=== PATIENT | female | born 1955 | race Caucasian/White ===

== ENCOUNTER 2017-09-06 00:20 | Day surgery (SDC) | payer OTHER ==
[~2017-09-06 00:20] MED LIST: AMLO5 PO; AMPDEX10 PO; ASPI325 PO; ASPI81EC PO; BUME2 PO; BUPR100 PO; BUPR150ER PO; BUPR75 PO; CALCIT950 PO; CHOL10002 PO; CITRACAL PO; CITRACAL-VIT D1 EAC1 PO; CYAN1000 PO; CYCL10 PO; DIVA250EC PO; DOXY100; Dicyclomine HCl10 MG PO; ESCI20 PO; ESOM20 PO; EZET10-40 PO; FERR325 PO; GLIM4 PO; IRON PO; Isosorbide Mono30 MG PO; LEVSOD137 PO; LEVSOD175 PO; LEVSOD50 PO; LISI5 PO; LOPE2C PO; Lisinopril2.5 MG PO; Lomotil Tablet1 EACH PO; MAGOXI400; MAGOXI400 PO; METF500 PO; MINO100 PO; MULVITMIND PO; MULVITMINE PO; Macrobid 100 M100 MG PO; NORT75 PO; Nortriptyline H10 MG PO; ONDA4ODT MM; ONDA8 PO; OXYACE5T PO; PRAM.5 PO; Percocet 5-3251 EACH PO; RANI150 PO; ROPI1 PO; SERT100 PO; SILSUL1TC TOP; SPIR25 PO; SULTRIDS PO; Synthroid175 MCG PO; TAMS.4ER PO; TRAM50 PO; TYLENOL PM PO; VITAMIN B COMPLEX PO; VITAMIN D3 PO; [UNRECOGNIZED DRUG - OTHER] PO
[2018-03-30] MEDS ORDERED: AMLO5 (13:35)
[2018-08-02] MEDS ORDERED: Nitrostat0.4 MG SL (12:31)
[2018-08-02] MEDS ORDERED: CHOL10002 (12:31)
[2018-08-02] MEDS ORDERED: AMLO5 PO (12:32)
[2018-08-02] MEDS ORDERED: HYDR1TAB94 PO (12:35)
[2018-08-02] MEDS ORDERED: PROM25 PO (12:37)
== END 2017-09-06 14:13 | disposition home or self-care (01) ==
LOC: ATC 00:20
DX: Z45.2 Encounter for adjustment and management of vascular access device (principal); R19.7 Diarrhea, unspecified
CPT/HCPCS: 96523

== ENCOUNTER 2017-09-12 00:32 | Day surgery (SDC) | payer OTHER ==
[2018-03-30] MEDS ORDERED: AMLO5 (13:35)
[2018-08-02] MEDS ORDERED: CHOL10002 (12:31)
[2018-08-02] MEDS ORDERED: Nitrostat0.4 MG SL (12:31)
[2018-08-02] MEDS ORDERED: AMLO5 PO (12:32)
[2018-08-02] MEDS ORDERED: HYDR1TAB94 PO (12:35)
[2018-08-02] MEDS ORDERED: PROM25 PO (12:37)
== END 2017-09-12 14:50 | disposition home or self-care (01) ==
LOC: ATC 00:32
DX: Z45.2 Encounter for adjustment and management of vascular access device (principal); R19.7 Diarrhea, unspecified; R51 Headache; E03.9 Hypothyroidism, unspecified; F32.9 Major depressive disorder, single episode, unspecified; E66.9 Obesity, unspecified; I10 Essential (primary) hypertension; K21.9 Gastro-esophageal reflux disease without esophagitis; G47.33 Obstructive sleep apnea (adult) (pediatric); Z98.84 Bariatric surgery status; Z87.891 Personal history of nicotine dependence
CPT/HCPCS: 96523; J1642

== ENCOUNTER 2017-09-19 00:27 | Day surgery (SDC) | payer OTHER ==
[2018-03-30] MEDS ORDERED: AMLO5 (13:35)
[2018-08-02] MEDS ORDERED: Nitrostat0.4 MG SL (12:31)
[2018-08-02] MEDS ORDERED: CHOL10002 (12:31)
[2018-08-02] MEDS ORDERED: AMLO5 PO (12:32)
[2018-08-02] MEDS ORDERED: HYDR1TAB94 PO (12:35)
[2018-08-02] MEDS ORDERED: PROM25 PO (12:37)
== END 2017-09-19 14:11 | disposition home or self-care (01) ==
LOC: ATC 00:27
DX: Z45.2 Encounter for adjustment and management of vascular access device (principal); R51 Headache; K58.9 Irritable bowel syndrome, unspecified; M54.12 Radiculopathy, cervical region
CPT/HCPCS: 96523

== ENCOUNTER 2017-09-26 00:07 | Day surgery (SDC) | payer OTHER ==
[2018-03-30] MEDS ORDERED: AMLO5 (13:35)
[2018-08-02] MEDS ORDERED: CHOL10002 (12:31)
[2018-08-02] MEDS ORDERED: Nitrostat0.4 MG SL (12:31)
[2018-08-02] MEDS ORDERED: AMLO5 PO (12:32)
[2018-08-02] MEDS ORDERED: HYDR1TAB94 PO (12:35)
[2018-08-02] MEDS ORDERED: PROM25 PO (12:37)
== END 2017-09-26 14:16 | disposition home or self-care (01) ==
LOC: ATC 00:07
DX: Z45.2 Encounter for adjustment and management of vascular access device (principal); R51 Headache; M54.12 Radiculopathy, cervical region; K58.9 Irritable bowel syndrome, unspecified
CPT/HCPCS: 96523

== ENCOUNTER 2017-10-03 00:15 | Day surgery (SDC) | payer OTHER ==
[2018-03-30] MEDS ORDERED: AMLO5 (13:35)
[2018-08-02] MEDS ORDERED: Nitrostat0.4 MG SL (12:31)
[2018-08-02] MEDS ORDERED: CHOL10002 (12:31)
[2018-08-02] MEDS ORDERED: AMLO5 PO (12:32)
[2018-08-02] MEDS ORDERED: HYDR1TAB94 PO (12:35)
[2018-08-02] MEDS ORDERED: PROM25 PO (12:37)
== END 2017-10-03 13:51 | disposition home or self-care (01) ==
LOC: ATC 00:15
DX: Z45.2 Encounter for adjustment and management of vascular access device (principal); R51 Headache; K58.9 Irritable bowel syndrome, unspecified; M54.12 Radiculopathy, cervical region
CPT/HCPCS: 96523

== ENCOUNTER 2017-10-10 00:26 | Day surgery (SDC) | payer OTHER ==
[2018-03-30] MEDS ORDERED: AMLO5 (13:35)
[2018-08-02] MEDS ORDERED: CHOL10002 (12:31)
[2018-08-02] MEDS ORDERED: Nitrostat0.4 MG SL (12:31)
[2018-08-02] MEDS ORDERED: AMLO5 PO (12:32)
[2018-08-02] MEDS ORDERED: HYDR1TAB94 PO (12:35)
[2018-08-02] MEDS ORDERED: PROM25 PO (12:37)
== END 2017-10-10 14:10 | disposition home or self-care (01) ==
LOC: ATC 00:26
DX: Z45.2 Encounter for adjustment and management of vascular access device (principal); R51 Headache; M54.12 Radiculopathy, cervical region; K58.9 Irritable bowel syndrome, unspecified
CPT/HCPCS: 96523; J1642

== ENCOUNTER 2017-10-17 00:25 | Day surgery (SDC) | payer OTHER ==
[2018-03-30] MEDS ORDERED: AMLO5 (13:35)
[2018-08-02] MEDS ORDERED: CHOL10002 (12:31)
[2018-08-02] MEDS ORDERED: Nitrostat0.4 MG SL (12:31)
[2018-08-02] MEDS ORDERED: AMLO5 PO (12:32)
[2018-08-02] MEDS ORDERED: HYDR1TAB94 PO (12:35)
[2018-08-02] MEDS ORDERED: PROM25 PO (12:37)
== END 2017-10-17 14:29 | disposition home or self-care (01) ==
LOC: ATC 00:25
DX: Z45.2 Encounter for adjustment and management of vascular access device (principal); R51 Headache; M54.12 Radiculopathy, cervical region; K58.9 Irritable bowel syndrome, unspecified
CPT/HCPCS: 96523

== ENCOUNTER 2017-10-24 00:20 | Day surgery (SDC) | payer OTHER ==
[2018-03-30] MEDS ORDERED: AMLO5 (13:35)
[2018-08-02] MEDS ORDERED: CHOL10002 (12:31)
[2018-08-02] MEDS ORDERED: Nitrostat0.4 MG SL (12:31)
[2018-08-02] MEDS ORDERED: AMLO5 PO (12:32)
[2018-08-02] MEDS ORDERED: HYDR1TAB94 PO (12:35)
[2018-08-02] MEDS ORDERED: PROM25 PO (12:37)
== END 2017-10-24 14:06 | disposition home or self-care (01) ==
LOC: ATC 00:20
DX: Z45.2 Encounter for adjustment and management of vascular access device (principal)
CPT/HCPCS: 96523

== ENCOUNTER 2017-11-16 00:49 | Day surgery (SDC) | payer OTHER ==
[2018-03-30] MEDS ORDERED: AMLO5 (13:35)
[2018-08-02] MEDS ORDERED: CHOL10002 (12:31)
[2018-08-02] MEDS ORDERED: Nitrostat0.4 MG SL (12:31)
[2018-08-02] MEDS ORDERED: AMLO5 PO (12:32)
[2018-08-02] MEDS ORDERED: HYDR1TAB94 PO (12:35)
[2018-08-02] MEDS ORDERED: PROM25 PO (12:37)
== END 2017-11-16 14:35 | disposition home or self-care (01) ==
LOC: ATC 00:49
DX: Z45.2 Encounter for adjustment and management of vascular access device (principal); R51 Headache; M54.12 Radiculopathy, cervical region
CPT/HCPCS: 99211; J1642

== ENCOUNTER → 2017-11-20 | Outpatient (CLI) | payer OTHER ==
[~2017-11-20] MED LIST changes: +AMLO5; +CHOL10002; +HYDR1TAB94 PO; +Nitrostat0.4 MG SL; +PROM25 PO; +Prilosec Otc20 MG
== END | disposition home or self-care (01) ==
LOC: OLS 11:00
DX: R19.7 Diarrhea, unspecified (principal)
CPT/HCPCS: 87177; 87209

== ENCOUNTER 2017-11-21 00:21 | Day surgery (SDC) | payer OTHER ==
[~2017-11-21 00:21] MED LIST changes: -AMLO5; -CHOL10002; -HYDR1TAB94 PO; -Nitrostat0.4 MG SL; -PROM25 PO; -Prilosec Otc20 MG
[2018-03-30] MEDS ORDERED: AMLO5 (13:35)
[2018-08-02] MEDS ORDERED: CHOL10002 (12:31)
[2018-08-02] MEDS ORDERED: Nitrostat0.4 MG SL (12:31)
[2018-08-02] MEDS ORDERED: AMLO5 PO (12:32)
[2018-08-02] MEDS ORDERED: HYDR1TAB94 PO (12:35)
[2018-08-02] MEDS ORDERED: PROM25 PO (12:37)
== END 2017-11-21 16:15 | disposition home or self-care (01) ==
LOC: ATC 00:21
DX: Z45.2 Encounter for adjustment and management of vascular access device (principal); R51 Headache; M54.12 Radiculopathy, cervical region
CPT/HCPCS: 99211; J1642

== ENCOUNTER 2017-11-28 00:50 | Day surgery (SDC) | payer OTHER ==
[2018-03-30] MEDS ORDERED: AMLO5 (13:35)
[2018-08-02] MEDS ORDERED: Nitrostat0.4 MG SL (12:31)
[2018-08-02] MEDS ORDERED: CHOL10002 (12:31)
[2018-08-02] MEDS ORDERED: AMLO5 PO (12:32)
[2018-08-02] MEDS ORDERED: HYDR1TAB94 PO (12:35)
[2018-08-02] MEDS ORDERED: PROM25 PO (12:37)
== END 2017-11-28 14:16 | disposition home or self-care (01) ==
LOC: ATC 00:50
DX: Z45.2 Encounter for adjustment and management of vascular access device (principal)
CPT/HCPCS: 96523; J1642

== ENCOUNTER 2017-12-05 09:25 | Day surgery (SDC) | payer OTHER ==
[~2017-12-05 09:25] MED LIST changes: +LEVSOD150 PO; -Synthroid175 MCG PO
== END 2017-12-05 14:22 | disposition home or self-care (01) ==
LOC: ATC 09:25
DX: Z45.2 Encounter for adjustment and management of vascular access device (principal); R51 Headache
CPT/HCPCS: 96523

== ENCOUNTER 2018-01-09 00:53 | Day surgery (SDC) | payer OTHER | END 2018-01-09 13:48 | disposition home or self-care (01) | LOC: ATC 00:53 | DX: Z45.2 Encounter for adjustment and management of vascular access device (principal); R51 Headache; M54.12 Radiculopathy, cervical region; K58.9 Irritable bowel syndrome, unspecified | CPT/HCPCS: 96523 ==

== ENCOUNTER 2018-01-16 00:11 | Day surgery (SDC) | payer OTHER | END 2018-01-16 13:55 | disposition home or self-care (01) | LOC: ATC 00:11 | DX: Z45.2 Encounter for adjustment and management of vascular access device (principal); R51 Headache; M54.12 Radiculopathy, cervical region | CPT/HCPCS: 96523 ==

== ENCOUNTER 2018-01-23 00:36 | Day surgery (SDC) | payer OTHER | END 2018-01-23 13:43 | disposition home or self-care (01) | LOC: ATC 00:36 | DX: Z45.2 Encounter for adjustment and management of vascular access device (principal); R51 Headache | CPT/HCPCS: 96523 ==

== ENCOUNTER 2018-01-31 00:54 | Day surgery (SDC) | payer OTHER | END 2018-01-31 11:43 | disposition home or self-care (01) | LOC: ATC 00:54 | DX: Z45.2 Encounter for adjustment and management of vascular access device (principal) | CPT/HCPCS: 96523 ==

== ENCOUNTER 2018-02-06 10:56 | Day surgery (SDC) | payer OTHER | END 2018-02-06 11:10 | disposition home or self-care (01) | LOC: ATC 10:56 | DX: Z45.2 Encounter for adjustment and management of vascular access device (principal); R51 Headache | CPT/HCPCS: 96523 ==

== ENCOUNTER 2018-02-13 00:42 | Day surgery (SDC) | payer OTHER | END 2018-02-13 12:00 | disposition home or self-care (01) | LOC: ATC 00:42 | DX: Z45.2 Encounter for adjustment and management of vascular access device (principal); R51 Headache | CPT/HCPCS: 96523 ==

== ENCOUNTER 2018-03-13 00:42 | Day surgery (SDC) | payer OTHER | END 2018-03-13 11:40 | disposition home or self-care (01) | LOC: ATC 00:42 | DX: Z45.2 Encounter for adjustment and management of vascular access device (principal) | CPT/HCPCS: 96523; J1642 ==

== ENCOUNTER 2018-03-20 00:35 | Day surgery (SDC) | payer OTHER | END 2018-03-20 13:56 | disposition home or self-care (01) | LOC: ATC 00:35 | DX: Z45.2 Encounter for adjustment and management of vascular access device (principal) | CPT/HCPCS: 36593; 96523; J2997 ==

== ENCOUNTER 2018-03-25 22:25 | Emergency (ER) | payer OTHER ==
[~2018-03-25] VITALS: Ht 165.1 cm; Wt 81.7 kg
[2018-03-25] MEDS ORDERED: Prilosec Otc20 MG (23:18)
[2018-03-26] MEDS ORDERED: Percocet 5-3251 EACH PO (00:08)
== END 2018-03-26 00:19 | disposition home or self-care (01) ==
LOC: ER 22:25
DX: S52.501A Unspecified fracture of the lower end of right radius, initial encounter for closed fracture (principal); S52.611A Displaced fracture of right ulna styloid process, initial encounter for closed fracture; F41.9 Anxiety disorder, unspecified; F32.9 Major depressive disorder, single episode, unspecified; Z88.8 Allergy status to other drugs, medicaments and biological substances; Z88.0 Allergy status to penicillin; Z88.1 Allergy status to other antibiotic agents; Z88.5 Allergy status to narcotic agent; Z88.6 Allergy status to analgesic agent; Z79.899 Other long term (current) drug therapy; W19.XXXA Unspecified fall, initial encounter; Y93.41 Activity, dancing
CPT/HCPCS: 29105; 73110; 99283-25

== ENCOUNTER 2018-03-27 00:29 | Day surgery (SDC) | payer OTHER ==
[~2018-03-27 00:29] MED LIST changes: +Prilosec Otc20 MG
[2018-03-30] MEDS ORDERED: AMLO5 (13:35)
== END 2018-03-27 12:05 | disposition home or self-care (01) ==
LOC: ATC 00:29
DX: R51 Headache (principal); M54.12 Radiculopathy, cervical region; K58.9 Irritable bowel syndrome, unspecified
CPT/HCPCS: 99211

== ENCOUNTER 2018-04-10 00:28 | Day surgery (SDC) | payer OTHER ==
[~2018-04-10 00:28] MED LIST changes: +AMLO5
== END 2018-04-10 12:20 | disposition home or self-care (01) ==
LOC: ATC 00:28
DX: Z45.2 Encounter for adjustment and management of vascular access device (principal); M54.12 Radiculopathy, cervical region
CPT/HCPCS: 99211

== ENCOUNTER 2018-04-17 00:28 | Day surgery (SDC) | payer OTHER | END 2018-04-17 11:26 | disposition home or self-care (01) | LOC: ATC 00:28 | DX: R51 Headache (principal); M54.12 Radiculopathy, cervical region; K58.9 Irritable bowel syndrome, unspecified | CPT/HCPCS: 99211 ==

== ENCOUNTER 2018-04-24 00:30 | Day surgery (SDC) | payer OTHER | END 2018-04-24 11:33 | disposition home or self-care (01) | LOC: ATC 00:30 | DX: R51 Headache (principal); M54.12 Radiculopathy, cervical region; K58.9 Irritable bowel syndrome, unspecified | CPT/HCPCS: 96523 ==

== ENCOUNTER 2018-05-01 01:38 | Day surgery (SDC) | payer OTHER | END 2018-05-01 13:45 | disposition home or self-care (01) | LOC: ATC 01:38 | DX: Z45.2 Encounter for adjustment and management of vascular access device (principal) | CPT/HCPCS: 96523 ==

== ENCOUNTER 2018-05-15 00:18 | Day surgery (SDC) | payer OTHER | END 2018-05-15 10:20 | disposition home or self-care (01) | LOC: ATC 00:18 | DX: R51 Headache (principal); M54.12 Radiculopathy, cervical region; K58.9 Irritable bowel syndrome, unspecified | CPT/HCPCS: 96523 ==

== ENCOUNTER 2018-05-22 00:16 | Day surgery (SDC) | payer OTHER | END 2018-05-22 13:45 | disposition home or self-care (01) | LOC: ATC 00:16 | DX: R51 Headache (principal); M54.12 Radiculopathy, cervical region; K58.9 Irritable bowel syndrome, unspecified | CPT/HCPCS: 99211 ==

== ENCOUNTER 2018-05-29 00:48 | Day surgery (SDC) | payer OTHER | END 2018-05-29 11:07 | disposition home or self-care (01) | LOC: ATC 00:48 | DX: Z45.2 Encounter for adjustment and management of vascular access device (principal) | CPT/HCPCS: 96523 ==

== ENCOUNTER 2018-06-05 00:35 | Day surgery (SDC) | payer OTHER | END 2018-06-05 11:13 | disposition home or self-care (01) | LOC: ATC 00:35 | DX: R51 Headache (principal); M54.12 Radiculopathy, cervical region; Z98.84 Bariatric surgery status | CPT/HCPCS: 96523 ==

== ENCOUNTER 2018-07-03 08:06 | Day surgery (SDC) | payer OTHER | END 2018-07-03 11:05 | disposition home or self-care (01) | LOC: ATC 08:06 | DX: Z45.2 Encounter for adjustment and management of vascular access device (principal); R19.7 Diarrhea, unspecified | CPT/HCPCS: 96523 ==

== ENCOUNTER 2018-08-21 00:46 | Day surgery (SDC) | payer OTHER ==
[~2018-08-21 00:46] MED LIST changes: +CHOL10002; +HYDR1TAB94 PO; -LEVSOD150 PO; +Nitrostat0.4 MG SL; +PROM25 PO; +Synthroid175 MCG PO
== END 2018-08-21 11:07 | disposition home or self-care (01) ==
LOC: ATC 00:46
DX: K58.0 Irritable bowel syndrome with diarrhea (principal)
CPT/HCPCS: 96523

== ENCOUNTER 2018-08-28 00:06 | Day surgery (SDC) | payer OTHER | END 2018-08-28 15:36 | disposition home or self-care (01) | LOC: ATC 00:06 | DX: R19.7 Diarrhea, unspecified (principal) | CPT/HCPCS: 96523 ==

== ENCOUNTER 2018-09-04 00:02 | Day surgery (SDC) | payer OTHER | END 2018-09-04 11:11 | disposition home or self-care (01) | LOC: ATC 00:02 | DX: K58.0 Irritable bowel syndrome with diarrhea (principal); M19.90 Unspecified osteoarthritis, unspecified site; Z88.8 Allergy status to other drugs, medicaments and biological substances | CPT/HCPCS: 96523 ==

== ENCOUNTER 2018-09-11 00:15 | Day surgery (SDC) | payer OTHER ==
--- NOTE | 2018-09-11 14:10 | NUR ---
ALCOHOL END CAP PLACED ON LINE.
== END 2018-09-11 13:43 | disposition home or self-care (01) ==
LOC: ATC 00:15
DX: R19.7 Diarrhea, unspecified (principal); K58.0 Irritable bowel syndrome with diarrhea
CPT/HCPCS: 96523

== ENCOUNTER 2018-09-18 00:10 | Day surgery (SDC) | payer OTHER | END 2018-09-18 23:08 | disposition home or self-care (01) | LOC: ATC 00:10 | DX: R19.7 Diarrhea, unspecified (principal); E86.0 Dehydration; K58.0 Irritable bowel syndrome with diarrhea; M19.90 Unspecified osteoarthritis, unspecified site; Z88.8 Allergy status to other drugs, medicaments and biological substances | CPT/HCPCS: 96523 ==

== ENCOUNTER 2018-09-25 00:13 | Day surgery (SDC) | payer OTHER | END 2018-09-25 11:15 | disposition home or self-care (01) | LOC: ATC 00:13 | DX: R51 Headache (principal); M54.12 Radiculopathy, cervical region; K58.9 Irritable bowel syndrome, unspecified; R19.7 Diarrhea, unspecified | CPT/HCPCS: 99211 ==

== ENCOUNTER 2018-10-02 00:12 | Day surgery (SDC) | payer OTHER | END 2018-10-02 11:30 | disposition home or self-care (01) | LOC: ATC 00:12 | DX: K58.0 Irritable bowel syndrome with diarrhea (principal); Z88.8 Allergy status to other drugs, medicaments and biological substances | CPT/HCPCS: 99211 ==

== ENCOUNTER 2018-10-05 14:17 | Emergency (ER) | payer OTHER ==
[~2018-10-05] VITALS: Ht 165.1 cm; Wt 81.7 kg
[2018-10-05] MEDS ORDERED: VICODIN 5-3001 EACH PO (15:20)
[2018-10-05] MEDS ORDERED: Crutch1 EACH MISC (15:22)
== END 2018-10-05 15:30 | disposition home or self-care (01) ==
LOC: ER 14:17
DX: S83.91XA Sprain of unspecified site of right knee, initial encounter (principal); S80.11XA Contusion of right lower leg, initial encounter; F32.9 Major depressive disorder, single episode, unspecified; F41.9 Anxiety disorder, unspecified; E03.9 Hypothyroidism, unspecified; Z79.899 Other long term (current) drug therapy; Z88.8 Allergy status to other drugs, medicaments and biological substances; Z88.1 Allergy status to other antibiotic agents; Z88.5 Allergy status to narcotic agent; Z88.6 Allergy status to analgesic agent; W19.XXXA Unspecified fall, initial encounter
CPT/HCPCS: 29505; 73590; 99283-25

== ENCOUNTER 2018-10-10 00:01 | Day surgery (SDC) | payer OTHER ==
[~2018-10-10 00:01] MED LIST changes: +Crutch1 EACH MISC; +VICODIN 5-3001 EACH PO
--- NOTE | 2018-10-10 10:51 | NUR ---
FLUSHED MEDIPORT WITH 20CC NS. PT TO DO INFUSION WHEN SHE GETS HOME.
== END 2018-10-10 10:35 | disposition home or self-care (01) ==
LOC: ATC 00:01
DX: K58.0 Irritable bowel syndrome with diarrhea (principal); R51 Headache; M54.12 Radiculopathy, cervical region
CPT/HCPCS: 96523

== ENCOUNTER 2018-10-16 00:12 | Day surgery (SDC) | payer OTHER ==
[2018-10-16] MEDS ORDERED: Hydrocodone-Ap1 EA23 PO (10:37)
== END 2018-10-16 22:43 | disposition home or self-care (01) ==
LOC: ATC 00:12
DX: K58.0 Irritable bowel syndrome with diarrhea (principal); R51 Headache; M54.12 Radiculopathy, cervical region
CPT/HCPCS: 96523

== ENCOUNTER 2018-10-23 00:24 | Day surgery (SDC) | payer OTHER ==
[~2018-10-23 00:24] MED LIST changes: +Hydrocodone-Ap1 EA23 PO
[2018-10-23] MEDS ORDERED: HYDROCODON-ACE1 EAC3 PO (10:56)
== END 2018-10-23 10:45 | disposition home or self-care (01) ==
LOC: ATC 00:24
DX: K58.0 Irritable bowel syndrome with diarrhea (principal)
CPT/HCPCS: 96523

== ENCOUNTER 2018-10-30 00:14 | Day surgery (SDC) | payer OTHER ==
[~2018-10-30 00:14] MED LIST changes: +HYDROCODON-ACE1 EAC3 PO
== END 2018-10-30 02:12 | disposition home or self-care (01) ==
LOC: ATC 00:14
DX: R19.7 Diarrhea, unspecified (principal); E03.9 Hypothyroidism, unspecified; E66.9 Obesity, unspecified; F32.9 Major depressive disorder, single episode, unspecified; I10 Essential (primary) hypertension; K21.9 Gastro-esophageal reflux disease without esophagitis; K58.0 Irritable bowel syndrome with diarrhea; G47.33 Obstructive sleep apnea (adult) (pediatric); E55.9 Vitamin D deficiency, unspecified; E11.9 Type 2 diabetes mellitus without complications; M19.90 Unspecified osteoarthritis, unspecified site; E86.0 Dehydration; Z87.891 Personal history of nicotine dependence
CPT/HCPCS: 99211

== ENCOUNTER 2018-11-20 00:37 | Day surgery (SDC) | payer OTHER | END 2018-11-20 10:11 | disposition home or self-care (01) | LOC: ATC 00:37 | DX: R19.7 Diarrhea, unspecified (principal); I10 Essential (primary) hypertension; E03.9 Hypothyroidism, unspecified; F32.9 Major depressive disorder, single episode, unspecified; K21.9 Gastro-esophageal reflux disease without esophagitis; G47.33 Obstructive sleep apnea (adult) (pediatric); E78.5 Hyperlipidemia, unspecified; E66.9 Obesity, unspecified; Z87.891 Personal history of nicotine dependence | CPT/HCPCS: 96523 ==

== ENCOUNTER 2018-11-27 00:31 | Day surgery (SDC) | payer OTHER | END 2018-11-27 10:06 | disposition home or self-care (01) | LOC: ATC 00:31 | DX: R19.7 Diarrhea, unspecified (principal); I10 Essential (primary) hypertension; E11.36 Type 2 diabetes mellitus with diabetic cataract; K21.9 Gastro-esophageal reflux disease without esophagitis; G47.33 Obstructive sleep apnea (adult) (pediatric); E78.5 Hyperlipidemia, unspecified; E03.9 Hypothyroidism, unspecified; F32.9 Major depressive disorder, single episode, unspecified; E66.9 Obesity, unspecified; Z79.891 Long term (current) use of opiate analgesic | CPT/HCPCS: 96523 ==

== ENCOUNTER 2018-12-04 00:06 | Day surgery (SDC) | payer OTHER | END 2018-12-04 11:05 | disposition home or self-care (01) | LOC: ATC 00:06 | DX: R19.7 Diarrhea, unspecified (principal); I10 Essential (primary) hypertension; E11.9 Type 2 diabetes mellitus without complications; E03.9 Hypothyroidism, unspecified; F32.9 Major depressive disorder, single episode, unspecified; K21.9 Gastro-esophageal reflux disease without esophagitis; G47.33 Obstructive sleep apnea (adult) (pediatric); E78.5 Hyperlipidemia, unspecified; E66.9 Obesity, unspecified; Z87.891 Personal history of nicotine dependence | CPT/HCPCS: 96523 ==

== ENCOUNTER 2018-12-11 00:07 | Day surgery (SDC) | payer OTHER | END 2018-12-11 11:19 | disposition home or self-care (01) | LOC: ATC 00:07 | DX: R19.7 Diarrhea, unspecified (principal); I10 Essential (primary) hypertension; Z87.891 Personal history of nicotine dependence | CPT/HCPCS: 99211 ==

== ENCOUNTER 2018-12-18 00:25 | Day surgery (SDC) | payer OTHER | END 2018-12-18 10:46 | disposition home or self-care (01) | LOC: ATC 00:25 | DX: R19.7 Diarrhea, unspecified (principal); M19.90 Unspecified osteoarthritis, unspecified site; I10 Essential (primary) hypertension; Z87.891 Personal history of nicotine dependence | CPT/HCPCS: 96523 ==

== ENCOUNTER 2018-12-25 00:10 | Day surgery (SDC) | payer OTHER | END 2018-12-25 10:20 | disposition home or self-care (01) | LOC: ATC 00:10 | DX: R19.7 Diarrhea, unspecified (principal); I10 Essential (primary) hypertension; E03.9 Hypothyroidism, unspecified; F32.9 Major depressive disorder, single episode, unspecified; K21.9 Gastro-esophageal reflux disease without esophagitis; G47.33 Obstructive sleep apnea (adult) (pediatric); E66.9 Obesity, unspecified; Z87.891 Personal history of nicotine dependence | CPT/HCPCS: 99211 ==

== ENCOUNTER 2019-01-01 00:04 | Day surgery (SDC) | payer OTHER | END 2019-01-01 10:06 | disposition home or self-care (01) | LOC: ATC 00:04 | DX: R19.7 Diarrhea, unspecified (principal); I10 Essential (primary) hypertension; E11.9 Type 2 diabetes mellitus without complications; E03.9 Hypothyroidism, unspecified; F32.9 Major depressive disorder, single episode, unspecified; K21.9 Gastro-esophageal reflux disease without esophagitis; G47.33 Obstructive sleep apnea (adult) (pediatric); E78.5 Hyperlipidemia, unspecified; E66.9 Obesity, unspecified; Z87.891 Personal history of nicotine dependence | CPT/HCPCS: 96523 ==

== ENCOUNTER 2019-01-08 00:23 | Day surgery (SDC) | payer OTHER | END 2019-01-08 22:45 | disposition home or self-care (01) | LOC: ATC 00:23 | DX: R19.7 Diarrhea, unspecified (principal); I10 Essential (primary) hypertension; E11.9 Type 2 diabetes mellitus without complications; K21.9 Gastro-esophageal reflux disease without esophagitis; E03.9 Hypothyroidism, unspecified; F32.9 Major depressive disorder, single episode, unspecified; G47.33 Obstructive sleep apnea (adult) (pediatric); E78.5 Hyperlipidemia, unspecified; E66.9 Obesity, unspecified; Z87.891 Personal history of nicotine dependence | CPT/HCPCS: 99211 ==

== ENCOUNTER 2019-01-15 00:05 | Day surgery (SDC) | payer OTHER | END 2019-01-15 23:02 | disposition home or self-care (01) | LOC: ATC 00:05 | DX: R19.7 Diarrhea, unspecified (principal); I10 Essential (primary) hypertension; E11.9 Type 2 diabetes mellitus without complications; K21.9 Gastro-esophageal reflux disease without esophagitis; F32.9 Major depressive disorder, single episode, unspecified; G47.33 Obstructive sleep apnea (adult) (pediatric); E55.9 Vitamin D deficiency, unspecified; E78.5 Hyperlipidemia, unspecified; E03.9 Hypothyroidism, unspecified; E66.9 Obesity, unspecified; Z87.891 Personal history of nicotine dependence | CPT/HCPCS: 99211 ==

== ENCOUNTER → 2019-01-21 | Outpatient (CLI) | payer OTHER ==
[2019-01-25 15:39] LABS: Adenovirus F 40/41 Not Detected (NOT DETECT); Astrovirus Not Detected (NOT DETECT); Campylobacter Sp Not Detected (NOT DETECT); Cryptosporidium Not Detected (NOT DETECT); Cyclospora Cayetanensis Not Detected (NOT DETECT); E. Coli O157 Not Detected (NOT DETECT); Entamoeba Histolytica Not Detected (NOT DETECT); Enteroaggregative E. coli-EAEC Not Detected (NOT DETECT); Enteropathogenic E. coli-EPEC Not Detected (NOT DETECT); Enterotoxigenic E. coli-ETEC Not Detected (NOT DETECT); Giardia Lamblia Not Detected (NOT DETECT); Norovirus GI/GII Not Detected (NOT DETECT); Plesiomonas Shigelloides Not Detected (NOT DETECT); Rotavirus A Not Detected (NOT DETECT); Salmonella Sp Not Detected (NOT DETECT); Sapovirus Not Detected (NOT DETECT); Shiga Toxin-prod E. coli-STEC Not Detected (NOT DETECT); Shigella/Enteroin E. coli-EIEC Not Detected (NOT DETECT); Vibrio Cholerae Not Detected (NOT DETECT); Vibrio Sp Not Detected (NOT DETECT); Yersinia Enterocolitica Not Detected (NOT DETECT)
== END | disposition home or self-care (01) ==
LOC: LAB 21:45 → LAB SHORT 21:45
PROVIDERS: Internal Medicine Gastroenterology
DX: R19.7 Diarrhea, unspecified (principal)
CPT/HCPCS: 87507

== ENCOUNTER 2019-01-22 10:57 | Day surgery (SDC) | payer OTHER | END 2019-01-22 11:19 | disposition home or self-care (01) | LOC: ATC 10:57 | DX: R19.7 Diarrhea, unspecified (principal); I10 Essential (primary) hypertension; E11.9 Type 2 diabetes mellitus without complications; E03.9 Hypothyroidism, unspecified; E78.5 Hyperlipidemia, unspecified; F32.9 Major depressive disorder, single episode, unspecified; K21.9 Gastro-esophageal reflux disease without esophagitis; G47.33 Obstructive sleep apnea (adult) (pediatric); E66.9 Obesity, unspecified; Z87.891 Personal history of nicotine dependence | CPT/HCPCS: 36591 ==

== ENCOUNTER → 2019-01-24 | Outpatient (CLI) | payer OTHER ==
[2019-01-25 14:18] LABS: Stool Occult Bld Immuno 1 Negative (NEGATIVE); Stool Occult Bld Immuno 2 Negative (NEGATIVE)
[2019-01-25 15:39] LABS: Adenovirus F 40/41 Not Detected (NOT DETECT); Astrovirus Not Detected (NOT DETECT); Campylobacter Sp Not Detected (NOT DETECT); Cryptosporidium Not Detected (NOT DETECT); Cyclospora Cayetanensis Not Detected (NOT DETECT); E. Coli O157 Not Detected (NOT DETECT); Entamoeba Histolytica Not Detected (NOT DETECT); Enteroaggregative E. coli-EAEC Not Detected (NOT DETECT); Enteropathogenic E. coli-EPEC Not Detected (NOT DETECT); Enterotoxigenic E. coli-ETEC Not Detected (NOT DETECT); Giardia Lamblia Not Detected (NOT DETECT); Norovirus GI/GII Not Detected (NOT DETECT); Plesiomonas Shigelloides Not Detected (NOT DETECT); Rotavirus A Not Detected (NOT DETECT); Salmonella Sp Not Detected (NOT DETECT); Sapovirus Not Detected (NOT DETECT); Shiga Toxin-prod E. coli-STEC Not Detected (NOT DETECT); Shigella/Enteroin E. coli-EIEC Not Detected (NOT DETECT); Vibrio Cholerae Not Detected (NOT DETECT); Vibrio Sp Not Detected (NOT DETECT); Yersinia Enterocolitica Not Detected (NOT DETECT)
== END | disposition home or self-care (01) ==
LOC: LAB FUT 10:00
PROVIDERS: Internal Medicine Gastroenterology
DX: Z12.11 Encounter for screening for malignant neoplasm of colon (principal); R19.7 Diarrhea, unspecified
CPT/HCPCS: 82274; 87507

== ENCOUNTER 2019-01-30 00:03 | Day surgery (SDC) | payer OTHER | END 2019-01-30 11:00 | disposition home or self-care (01) | LOC: ATC 00:03 | DX: R19.7 Diarrhea, unspecified (principal); I10 Essential (primary) hypertension; E11.9 Type 2 diabetes mellitus without complications; K21.9 Gastro-esophageal reflux disease without esophagitis; F32.9 Major depressive disorder, single episode, unspecified; E03.9 Hypothyroidism, unspecified; E55.9 Vitamin D deficiency, unspecified; E78.5 Hyperlipidemia, unspecified; G47.33 Obstructive sleep apnea (adult) (pediatric); E66.9 Obesity, unspecified; Z87.891 Personal history of nicotine dependence | CPT/HCPCS: 96523 ==

== ENCOUNTER 2019-02-26 00:03 | Day surgery (SDC) | payer OTHER | END 2019-02-26 11:08 | disposition home or self-care (01) | LOC: ATC 00:03 | DX: Z45.2 Encounter for adjustment and management of vascular access device (principal); M19.90 Unspecified osteoarthritis, unspecified site | CPT/HCPCS: 96523 ==

== ENCOUNTER 2019-03-05 00:14 | Day surgery (SDC) | payer OTHER | END 2019-03-05 22:50 | disposition home or self-care (01) | LOC: ATC 00:14 | DX: Z45.2 Encounter for adjustment and management of vascular access device (principal) ==

== ENCOUNTER 2019-03-06 00:15 | Day surgery (SDC) | payer OTHER | END 2019-03-06 16:03 | disposition home or self-care (01) | LOC: ATC 00:15 | DX: K58.9 Irritable bowel syndrome, unspecified (principal); M19.90 Unspecified osteoarthritis, unspecified site | CPT/HCPCS: 96523 ==

== ENCOUNTER 2019-03-12 00:14 | Day surgery (SDC) | payer OTHER | END 2019-03-12 23:01 | disposition home or self-care (01) | LOC: ATC 00:14 | DX: Z45.2 Encounter for adjustment and management of vascular access device (principal) | CPT/HCPCS: 96523 ==

== ENCOUNTER 2019-03-19 00:43 | Day surgery (SDC) | payer OTHER | END 2019-03-19 10:17 | disposition home or self-care (01) | LOC: ATC 00:43 | DX: Z45.2 Encounter for adjustment and management of vascular access device (principal); E03.9 Hypothyroidism, unspecified; E83.42 Hypomagnesemia; F32.9 Major depressive disorder, single episode, unspecified; G25.81 Restless legs syndrome; K21.9 Gastro-esophageal reflux disease without esophagitis; G47.33 Obstructive sleep apnea (adult) (pediatric); E11.9 Type 2 diabetes mellitus without complications; I10 Essential (primary) hypertension; E78.5 Hyperlipidemia, unspecified; Z87.891 Personal history of nicotine dependence | CPT/HCPCS: 99211 ==

== ENCOUNTER 2019-03-26 00:11 | Day surgery (SDC) | payer OTHER | END 2019-03-26 10:47 | disposition home or self-care (01) | LOC: ATC 00:11 | DX: Z45.2 Encounter for adjustment and management of vascular access device (principal); E03.9 Hypothyroidism, unspecified; I10 Essential (primary) hypertension; K21.9 Gastro-esophageal reflux disease without esophagitis; G47.33 Obstructive sleep apnea (adult) (pediatric); E78.5 Hyperlipidemia, unspecified; Z87.891 Personal history of nicotine dependence | CPT/HCPCS: 96523 ==

== ENCOUNTER 2019-04-02 00:02 | Day surgery (SDC) | payer OTHER | END 2019-04-02 10:17 | disposition home or self-care (01) | LOC: ATC 00:02 | DX: Z45.2 Encounter for adjustment and management of vascular access device (principal); E03.9 Hypothyroidism, unspecified; E83.42 Hypomagnesemia; F32.9 Major depressive disorder, single episode, unspecified; E66.9 Obesity, unspecified; I10 Essential (primary) hypertension; G25.81 Restless legs syndrome; K21.9 Gastro-esophageal reflux disease without esophagitis; K58.9 Irritable bowel syndrome, unspecified; G47.33 Obstructive sleep apnea (adult) (pediatric); E11.9 Type 2 diabetes mellitus without complications; Z98.84 Bariatric surgery status; Z87.891 Personal history of nicotine dependence | CPT/HCPCS: 96523 ==

== ENCOUNTER 2019-04-16 00:07 | Day surgery (SDC) | payer OTHER | END 2019-04-16 10:32 | disposition home or self-care (01) | LOC: ATC 00:07 | DX: R19.7 Diarrhea, unspecified (principal); Z87.891 Personal history of nicotine dependence | CPT/HCPCS: 99211 ==

== ENCOUNTER 2019-04-23 00:16 | Day surgery (SDC) | payer OTHER | END 2019-04-23 11:08 | disposition home or self-care (01) | LOC: ATC 00:16 | DX: R19.7 Diarrhea, unspecified (principal); I10 Essential (primary) hypertension; E11.9 Type 2 diabetes mellitus without complications; G47.33 Obstructive sleep apnea (adult) (pediatric); Z87.891 Personal history of nicotine dependence | CPT/HCPCS: 96523 ==

== ENCOUNTER 2019-04-30 00:21 | Day surgery (SDC) | payer OTHER | END 2019-04-30 10:21 | disposition home or self-care (01) | LOC: ATC 00:21 | DX: R19.7 Diarrhea, unspecified (principal); I10 Essential (primary) hypertension; Z87.891 Personal history of nicotine dependence | CPT/HCPCS: 99211 ==

== ENCOUNTER → 2019-05-03 | Outpatient (CLI) | payer OTHER ==
[2019-05-04 14:32] LABS: Stool Occult Bld Immuno 1 Negative (NEGATIVE)
== END | disposition home or self-care (01) ==
LOC: LAB 18:45 → LAB SHORT 18:45 → LAB FUT 05-03 15:35
PROVIDERS: Internal Medicine
DX: Z12.11 Encounter for screening for malignant neoplasm of colon (principal); N39.0 Urinary tract infection, site not specified; R53.81 Other malaise
CPT/HCPCS: G0328

== ENCOUNTER 2019-05-08 00:16 | Day surgery (SDC) | payer OTHER | END 2019-05-08 08:15 | disposition home or self-care (01) | LOC: ATC 00:16 | DX: Z45.2 Encounter for adjustment and management of vascular access device (principal) | CPT/HCPCS: 96523 ==

== ENCOUNTER 2019-05-14 10:42 | Day surgery (SDC) | payer OTHER | END 2019-05-25 23:31 | disposition home or self-care (01) | LOC: ATC 10:42 | DX: Z45.2 Encounter for adjustment and management of vascular access device (principal); I10 Essential (primary) hypertension; Z87.891 Personal history of nicotine dependence | CPT/HCPCS: 96523 ==

== ENCOUNTER → 2019-05-17 | Outpatient (CLI) | payer OTHER ==
[2019-05-17 10:26] LABS: Source, Urine Clean Catch
[2019-05-17 11:07] LABS: Bilirubin, Urine Neg (Neg); Blood, Urine Neg (Neg); Glucose Qualitative, Urine Neg (Neg); Ketones, Urine Neg (Neg); Leukocyte Esterase, Urine Neg (Neg); Nitrite, Urine Neg (Neg); Protein, Urine Neg (Neg); Urobilinogen, Urine NORM (Normal)
[2019-05-17 11:32] LABS: Appearance, Urine Clear (Clear); Color, Urine Yellow (P-Yellow)
== END | disposition home or self-care (01) ==
LOC: LAB 10:25 → LAB SHORT 10:25 → EDSTATUS 05-04 08:15 → LAB FUT 05-04 08:15
PROVIDERS: Internal Medicine
DX: N39.0 Urinary tract infection, site not specified (principal)
CPT/HCPCS: 81003

== ENCOUNTER 2019-05-21 00:06 | Day surgery (SDC) | payer OTHER | END 2019-05-21 10:00 | disposition home or self-care (01) | LOC: ATC 00:06 | DX: R19.7 Diarrhea, unspecified (principal) | CPT/HCPCS: 96523 ==

== ENCOUNTER 2019-05-28 00:11 | Day surgery (SDC) | payer OTHER | END 2019-05-28 10:14 | disposition home or self-care (01) | LOC: ATC 00:11 | DX: R19.7 Diarrhea, unspecified (principal) | CPT/HCPCS: 96523; 99211 ==

== ENCOUNTER 2019-06-04 00:17 | Day surgery (SDC) | payer OTHER | END 2019-06-04 10:19 | disposition home or self-care (01) | LOC: ATC 00:17 | DX: R19.7 Diarrhea, unspecified (principal); K58.9 Irritable bowel syndrome, unspecified; M19.90 Unspecified osteoarthritis, unspecified site | CPT/HCPCS: 96374 ==

== ENCOUNTER 2019-06-11 00:40 | Day surgery (SDC) | payer OTHER | END 2019-06-11 10:10 | disposition home or self-care (01) | LOC: ATC 00:40 | DX: Z45.2 Encounter for adjustment and management of vascular access device (principal); I10 Essential (primary) hypertension; E11.9 Type 2 diabetes mellitus without complications; E78.5 Hyperlipidemia, unspecified; E03.9 Hypothyroidism, unspecified; F32.9 Major depressive disorder, single episode, unspecified; E66.9 Obesity, unspecified; K21.9 Gastro-esophageal reflux disease without esophagitis; G47.33 Obstructive sleep apnea (adult) (pediatric); Z87.891 Personal history of nicotine dependence; Z68.26 Body mass index [BMI] 26.0-26.9, adult; Z79.899 Other long term (current) drug therapy | CPT/HCPCS: 96523 ==

== ENCOUNTER → 2019-06-14 | Outpatient (CLI) | payer OTHER ==
[2019-06-19 15:07] LABS: M-SPIKE, % Not Observed % (Not Observed); PROTEIN,TOTAL,URINE <4.0 mg/dL (Not Estab.)
== END ==
LOC: LAB SHORT 07:30 → OLS 07:30
PROVIDERS: Internal Medicine
DX: Z00.01 Encounter for general adult medical examination with abnormal findings (principal); R74.0 Nonspecific elevation of levels of transaminase and lactic acid dehydrogenase [LDH]
CPT/HCPCS: 81050; 84166; 86335

== ENCOUNTER 2019-06-18 00:08 | Day surgery (SDC) | payer OTHER | END 2019-06-18 10:43 | disposition home or self-care (01) | LOC: ATC 00:08 | DX: Z45.2 Encounter for adjustment and management of vascular access device (principal); I10 Essential (primary) hypertension; E03.9 Hypothyroidism, unspecified; E11.36 Type 2 diabetes mellitus with diabetic cataract; H26.9 Unspecified cataract; E66.9 Obesity, unspecified; G47.33 Obstructive sleep apnea (adult) (pediatric); E78.5 Hyperlipidemia, unspecified; F32.9 Major depressive disorder, single episode, unspecified; K21.9 Gastro-esophageal reflux disease without esophagitis; Z87.891 Personal history of nicotine dependence; Z68.26 Body mass index [BMI] 26.0-26.9, adult; Z79.899 Other long term (current) drug therapy | CPT/HCPCS: 96523 ==

== ENCOUNTER 2019-06-20 09:19 | Day surgery (SDC) | payer OTHER ==
[~2019-06-20] VITALS: Ht 165.1 cm; Wt 71.3 kg
== END 2019-06-20 11:11 | disposition home or self-care (01) ==
LOC: ORSCSDS 09:19
PROVIDERS: Internal Medicine Gastroenterology
PROC: 0DBE8ZX Excision of Large Intestine, Via Natural or Artificial Opening Endoscopic, Diagnostic (ICD-10-PCS; principal; 2019-06-20 10:30)
DX: R19.7 Diarrhea, unspecified (principal); K57.30 Diverticulosis of large intestine without perforation or abscess without bleeding; Z98.84 Bariatric surgery status; I10 Essential (primary) hypertension; E03.9 Hypothyroidism, unspecified; Z79.899 Other long term (current) drug therapy; Z87.891 Personal history of nicotine dependence
CPT/HCPCS: 88305; J2704; J7120

== ENCOUNTER 2019-07-16 00:06 | Day surgery (SDC) | payer OTHER | END 2019-07-16 10:35 | disposition home or self-care (01) | LOC: ATC 00:06 | DX: Z45.2 Encounter for adjustment and management of vascular access device (principal); I10 Essential (primary) hypertension; E78.5 Hyperlipidemia, unspecified; E03.9 Hypothyroidism, unspecified; F32.9 Major depressive disorder, single episode, unspecified; G25.81 Restless legs syndrome; K21.9 Gastro-esophageal reflux disease without esophagitis; G47.33 Obstructive sleep apnea (adult) (pediatric); E11.36 Type 2 diabetes mellitus with diabetic cataract; H26.9 Unspecified cataract; E66.9 Obesity, unspecified; Z68.26 Body mass index [BMI] 26.0-26.9, adult; Z87.891 Personal history of nicotine dependence; Z79.899 Other long term (current) drug therapy; Z88.1 Allergy status to other antibiotic agents; Z88.5 Allergy status to narcotic agent; Z88.6 Allergy status to analgesic agent; Z88.8 Allergy status to other drugs, medicaments and biological substances | CPT/HCPCS: 99211 ==

== ENCOUNTER 2019-07-23 00:04 | Day surgery (SDC) | payer OTHER | END 2019-07-23 10:31 | disposition home or self-care (01) | LOC: ATC 00:04 | DX: Z45.2 Encounter for adjustment and management of vascular access device (principal); I10 Essential (primary) hypertension; K21.9 Gastro-esophageal reflux disease without esophagitis; E03.9 Hypothyroidism, unspecified; F32.9 Major depressive disorder, single episode, unspecified; E66.9 Obesity, unspecified; G25.81 Restless legs syndrome; G47.33 Obstructive sleep apnea (adult) (pediatric); E78.5 Hyperlipidemia, unspecified; Z98.84 Bariatric surgery status; Z88.1 Allergy status to other antibiotic agents; Z88.5 Allergy status to narcotic agent; Z88.6 Allergy status to analgesic agent; Z88.8 Allergy status to other drugs, medicaments and biological substances; Z87.891 Personal history of nicotine dependence; Z79.899 Other long term (current) drug therapy | CPT/HCPCS: 96523 ==

== ENCOUNTER 2019-07-30 00:28 | Day surgery (SDC) | payer OTHER ==
[2019-07-30] MEDS ORDERED: OXYC5 PO (11:56)
== END 2019-07-30 15:00 | disposition home or self-care (01) ==
LOC: ATC 00:28
DX: T85.868A Thrombosis due to other internal prosthetic devices, implants and grafts, initial encounter (principal); E03.9 Hypothyroidism, unspecified; I10 Essential (primary) hypertension; K21.9 Gastro-esophageal reflux disease without esophagitis; G47.33 Obstructive sleep apnea (adult) (pediatric); E78.5 Hyperlipidemia, unspecified; E66.9 Obesity, unspecified; F32.9 Major depressive disorder, single episode, unspecified; Z87.891 Personal history of nicotine dependence; Z68.26 Body mass index [BMI] 26.0-26.9, adult; Y83.1 Surgical operation with implant of artificial internal device as the cause of abnormal reaction of the patient, or of later complication, without mention of misadventure at the time of the procedure; Z79.899 Other long term (current) drug therapy
CPT/HCPCS: 36593; 96523; J2997

== ENCOUNTER 2019-08-07 00:03 | Day surgery (SDC) | payer OTHER ==
[~2019-08-07 00:03] MED LIST changes: +OXYC5 PO
== END 2019-08-07 10:16 | disposition home or self-care (01) ==
LOC: ATC 00:03
DX: Z45.2 Encounter for adjustment and management of vascular access device (principal); E03.9 Hypothyroidism, unspecified; F32.9 Major depressive disorder, single episode, unspecified; I10 Essential (primary) hypertension; K21.9 Gastro-esophageal reflux disease without esophagitis; G47.33 Obstructive sleep apnea (adult) (pediatric); E11.9 Type 2 diabetes mellitus without complications; E78.5 Hyperlipidemia, unspecified; E66.9 Obesity, unspecified; Z79.899 Other long term (current) drug therapy; Z88.1 Allergy status to other antibiotic agents; Z88.5 Allergy status to narcotic agent; Z88.6 Allergy status to analgesic agent; Z88.8 Allergy status to other drugs, medicaments and biological substances; Z87.891 Personal history of nicotine dependence
CPT/HCPCS: 96523

== ENCOUNTER 2019-08-13 07:09 | Day surgery (SDC) | payer OTHER | END 2019-08-13 10:29 | disposition home or self-care (01) | LOC: ATC 07:09 | DX: R19.7 Diarrhea, unspecified (principal); E03.9 Hypothyroidism, unspecified; E11.9 Type 2 diabetes mellitus without complications; I10 Essential (primary) hypertension; E66.9 Obesity, unspecified; F32.9 Major depressive disorder, single episode, unspecified; K21.9 Gastro-esophageal reflux disease without esophagitis; E78.5 Hyperlipidemia, unspecified; Z87.891 Personal history of nicotine dependence; Z68.26 Body mass index [BMI] 26.0-26.9, adult; Z79.899 Other long term (current) drug therapy | CPT/HCPCS: 96523 ==

== ENCOUNTER 2019-08-22 00:20 | Day surgery (SDC) | payer OTHER | END 2019-08-22 10:41 | disposition home or self-care (01) | LOC: ATC 00:20 | DX: R19.7 Diarrhea, unspecified (principal); K58.9 Irritable bowel syndrome, unspecified; M19.90 Unspecified osteoarthritis, unspecified site; Z88.1 Allergy status to other antibiotic agents; Z88.5 Allergy status to narcotic agent; Z88.6 Allergy status to analgesic agent; Z88.8 Allergy status to other drugs, medicaments and biological substances; Z87.891 Personal history of nicotine dependence; Z90.49 Acquired absence of other specified parts of digestive tract; Z90.710 Acquired absence of both cervix and uterus; Z98.84 Bariatric surgery status; Z79.899 Other long term (current) drug therapy | CPT/HCPCS: 99211 ==

== ENCOUNTER 2019-08-27 00:05 | Day surgery (SDC) | payer OTHER | END 2019-08-27 10:30 | disposition home or self-care (01) | LOC: ATC 00:05 | DX: K58.0 Irritable bowel syndrome with diarrhea (principal); M19.90 Unspecified osteoarthritis, unspecified site; E86.0 Dehydration; Z88.1 Allergy status to other antibiotic agents; Z79.899 Other long term (current) drug therapy; Z88.5 Allergy status to narcotic agent; Z88.6 Allergy status to analgesic agent; Z88.8 Allergy status to other drugs, medicaments and biological substances | CPT/HCPCS: 96523 ==

== ENCOUNTER → 2019-08-30 | Outpatient (CLI) | payer OTHER ==
[2019-08-30 14:03] LABS: Source, Urine Clean Catch
[2019-08-30 14:57] LABS: Bilirubin, Urine Neg (Neg); Blood, Urine Neg (Neg); Glucose Qualitative, Urine Neg (Neg); Ketones, Urine Neg (Neg); Leukocyte Esterase, Urine Neg (Neg); Nitrite, Urine Neg (Neg); Protein, Urine Neg (Neg); Specific Gravity, Urine 1.015 (1.003-1.022); Urobilinogen, Urine NORM (Normal)
[2019-08-30 15:03] LABS: Appearance, Urine Clear (Clear); Color, Urine Yellow (P-Yellow)
== END | disposition home or self-care (01) ==
LOC: LAB 14:02 → LAB SHORT 14:02
PROVIDERS: Internal Medicine
DX: N39.0 Urinary tract infection, site not specified (principal)
CPT/HCPCS: 81003

== ENCOUNTER 2019-09-03 00:03 | Day surgery (SDC) | payer OTHER | END 2019-09-03 10:27 | disposition home or self-care (01) | LOC: ATC 00:03 | DX: K58.0 Irritable bowel syndrome with diarrhea (principal); K21.9 Gastro-esophageal reflux disease without esophagitis; R51 Headache; M54.12 Radiculopathy, cervical region; E03.9 Hypothyroidism, unspecified; F32.9 Major depressive disorder, single episode, unspecified; G25.81 Restless legs syndrome; M19.90 Unspecified osteoarthritis, unspecified site; G47.33 Obstructive sleep apnea (adult) (pediatric); E11.36 Type 2 diabetes mellitus with diabetic cataract; H26.9 Unspecified cataract; I10 Essential (primary) hypertension; E78.5 Hyperlipidemia, unspecified; Z90.49 Acquired absence of other specified parts of digestive tract; Z88.1 Allergy status to other antibiotic agents; Z88.5 Allergy status to narcotic agent; Z88.6 Allergy status to analgesic agent; Z88.8 Allergy status to other drugs, medicaments and biological substances; Z87.891 Personal history of nicotine dependence | CPT/HCPCS: 96523 ==

== ENCOUNTER 2019-09-10 00:06 | Day surgery (SDC) | payer OTHER | END 2019-09-10 08:14 | disposition home or self-care (01) | LOC: ATC 00:06 | DX: R19.7 Diarrhea, unspecified (principal); E03.9 Hypothyroidism, unspecified; F41.9 Anxiety disorder, unspecified; F32.9 Major depressive disorder, single episode, unspecified; E66.9 Obesity, unspecified; I10 Essential (primary) hypertension; K21.9 Gastro-esophageal reflux disease without esophagitis; G47.33 Obstructive sleep apnea (adult) (pediatric); E11.9 Type 2 diabetes mellitus without complications; E78.5 Hyperlipidemia, unspecified; Z87.891 Personal history of nicotine dependence; Z68.26 Body mass index [BMI] 26.0-26.9, adult; Z79.899 Other long term (current) drug therapy | CPT/HCPCS: 96523 ==

== ENCOUNTER 2019-09-17 00:09 | Day surgery (SDC) | payer OTHER | END 2019-09-17 10:44 | disposition home or self-care (01) | LOC: ATC 00:09 | DX: K58.0 Irritable bowel syndrome with diarrhea (principal); K21.9 Gastro-esophageal reflux disease without esophagitis; I10 Essential (primary) hypertension; E78.5 Hyperlipidemia, unspecified; E03.9 Hypothyroidism, unspecified; F32.9 Major depressive disorder, single episode, unspecified; E66.9 Obesity, unspecified; G25.81 Restless legs syndrome; G47.33 Obstructive sleep apnea (adult) (pediatric); E55.9 Vitamin D deficiency, unspecified; E11.36 Type 2 diabetes mellitus with diabetic cataract; H26.9 Unspecified cataract; Z98.84 Bariatric surgery status; Z90.49 Acquired absence of other specified parts of digestive tract; Z87.891 Personal history of nicotine dependence; Z79.899 Other long term (current) drug therapy; Z88.1 Allergy status to other antibiotic agents; Z88.5 Allergy status to narcotic agent; Z88.6 Allergy status to analgesic agent | CPT/HCPCS: 99211 ==

== ENCOUNTER 2019-09-24 00:09 | Day surgery (SDC) | payer OTHER | END 2019-09-24 10:17 | disposition home or self-care (01) | LOC: ATC 00:09 | DX: K58.0 Irritable bowel syndrome with diarrhea (principal); K21.9 Gastro-esophageal reflux disease without esophagitis; I10 Essential (primary) hypertension; E78.5 Hyperlipidemia, unspecified; E03.9 Hypothyroidism, unspecified; F32.9 Major depressive disorder, single episode, unspecified; E66.9 Obesity, unspecified; G25.81 Restless legs syndrome; G47.33 Obstructive sleep apnea (adult) (pediatric); E55.9 Vitamin D deficiency, unspecified; E11.36 Type 2 diabetes mellitus with diabetic cataract; H26.9 Unspecified cataract; Z98.84 Bariatric surgery status; Z90.49 Acquired absence of other specified parts of digestive tract; Z79.899 Other long term (current) drug therapy; Z87.891 Personal history of nicotine dependence; Z88.1 Allergy status to other antibiotic agents; Z88.5 Allergy status to narcotic agent; Z88.6 Allergy status to analgesic agent; Z88.8 Allergy status to other drugs, medicaments and biological substances | CPT/HCPCS: 96523 ==

== ENCOUNTER 2019-10-30 01:06 | Day surgery (SDC) | payer OTHER | END 2019-10-30 09:54 | disposition home or self-care (01) | LOC: ATC 01:06 | DX: Z45.2 Encounter for adjustment and management of vascular access device (principal); R19.7 Diarrhea, unspecified; E03.9 Hypothyroidism, unspecified; I10 Essential (primary) hypertension; E78.5 Hyperlipidemia, unspecified; E66.9 Obesity, unspecified; F32.9 Major depressive disorder, single episode, unspecified; E11.9 Type 2 diabetes mellitus without complications; G47.33 Obstructive sleep apnea (adult) (pediatric); Z87.891 Personal history of nicotine dependence; Z68.26 Body mass index [BMI] 26.0-26.9, adult; Z79.899 Other long term (current) drug therapy | CPT/HCPCS: 96523 ==

== ENCOUNTER 2019-11-12 00:03 | Day surgery (SDC) | payer OTHER | END 2019-11-12 10:00 | disposition home or self-care (01) | LOC: ATC 00:03 | DX: R19.7 Diarrhea, unspecified (principal); I10 Essential (primary) hypertension; E78.5 Hyperlipidemia, unspecified; E66.9 Obesity, unspecified; F32.9 Major depressive disorder, single episode, unspecified; E03.9 Hypothyroidism, unspecified; E11.9 Type 2 diabetes mellitus without complications; Z87.891 Personal history of nicotine dependence; Z68.26 Body mass index [BMI] 26.0-26.9, adult; Z79.899 Other long term (current) drug therapy ==

== ENCOUNTER 2019-11-19 00:08 | Day surgery (SDC) | payer OTHER ==
--- NOTE | 2019-11-19 10:13 | NUR ---
MEDIPORT: NO HEPARIN LOCK, PT GOING STRAIGHT HOME TO DO INFUSION AND WILL DO OWN HEPARIN LOCK
== END 2019-11-19 09:40 | disposition home or self-care (01) ==
LOC: ATC 00:08
DX: R19.7 Diarrhea, unspecified (principal); E03.9 Hypothyroidism, unspecified; E83.42 Hypomagnesemia; F32.9 Major depressive disorder, single episode, unspecified; E66.9 Obesity, unspecified; I10 Essential (primary) hypertension; G25.81 Restless legs syndrome; K21.9 Gastro-esophageal reflux disease without esophagitis; G47.33 Obstructive sleep apnea (adult) (pediatric); E11.36 Type 2 diabetes mellitus with diabetic cataract; Z87.891 Personal history of nicotine dependence; Z68.26 Body mass index [BMI] 26.0-26.9, adult
CPT/HCPCS: 99211

== ENCOUNTER 2019-11-27 00:13 | Day surgery (SDC) | payer OTHER | END 2019-11-27 14:00 | disposition home or self-care (01) | LOC: ATC 00:13 | DX: R19.7 Diarrhea, unspecified (principal); E03.9 Hypothyroidism, unspecified; E83.42 Hypomagnesemia; E66.9 Obesity, unspecified; K21.9 Gastro-esophageal reflux disease without esophagitis; I10 Essential (primary) hypertension; G47.33 Obstructive sleep apnea (adult) (pediatric) | CPT/HCPCS: 96523 ==

== ENCOUNTER 2019-12-03 00:37 | Day surgery (SDC) | payer OTHER | END 2019-12-03 13:55 | disposition home or self-care (01) | LOC: ATC 00:37 | DX: R19.7 Diarrhea, unspecified (principal); I10 Essential (primary) hypertension; E66.9 Obesity, unspecified; K21.9 Gastro-esophageal reflux disease without esophagitis; G47.33 Obstructive sleep apnea (adult) (pediatric); E03.9 Hypothyroidism, unspecified; F32.9 Major depressive disorder, single episode, unspecified; Z87.891 Personal history of nicotine dependence; E78.5 Hyperlipidemia, unspecified; Z79.899 Other long term (current) drug therapy; Z68.26 Body mass index [BMI] 26.0-26.9, adult | CPT/HCPCS: 96523 ==

== ENCOUNTER 2019-12-10 00:05 | Day surgery (SDC) | payer OTHER | END 2019-12-10 10:00 | disposition home or self-care (01) | LOC: ATC 00:05 | DX: R19.7 Diarrhea, unspecified (principal); E03.9 Hypothyroidism, unspecified; E66.9 Obesity, unspecified; I10 Essential (primary) hypertension; E11.9 Type 2 diabetes mellitus without complications; K21.9 Gastro-esophageal reflux disease without esophagitis; Z79.899 Other long term (current) drug therapy; Z87.891 Personal history of nicotine dependence; Z68.26 Body mass index [BMI] 26.0-26.9, adult ==

== ENCOUNTER 2019-12-17 01:07 | Day surgery (SDC) | payer OTHER | END 2019-12-17 10:01 | disposition home or self-care (01) | LOC: ATC 01:07 | DX: R19.7 Diarrhea, unspecified (principal); E03.9 Hypothyroidism, unspecified; F32.9 Major depressive disorder, single episode, unspecified; E66.9 Obesity, unspecified; I10 Essential (primary) hypertension; E11.9 Type 2 diabetes mellitus without complications; E78.5 Hyperlipidemia, unspecified; Z87.891 Personal history of nicotine dependence; Z68.26 Body mass index [BMI] 26.0-26.9, adult; Z79.899 Other long term (current) drug therapy ==

== ENCOUNTER 2019-12-24 00:07 | Day surgery (SDC) | payer OTHER | END 2019-12-24 09:57 | disposition home or self-care (01) | LOC: ATC 00:07 | DX: R19.7 Diarrhea, unspecified (principal); I10 Essential (primary) hypertension; E66.9 Obesity, unspecified; F32.9 Major depressive disorder, single episode, unspecified; K21.9 Gastro-esophageal reflux disease without esophagitis; E11.9 Type 2 diabetes mellitus without complications; G47.33 Obstructive sleep apnea (adult) (pediatric); E78.5 Hyperlipidemia, unspecified; Z87.891 Personal history of nicotine dependence; Z79.899 Other long term (current) drug therapy ==

== ENCOUNTER 2019-12-31 00:03 | Day surgery (SDC) | payer OTHER | END 2019-12-31 10:10 | disposition home or self-care (01) | LOC: ATC 00:03 | DX: R19.7 Diarrhea, unspecified (principal); E03.9 Hypothyroidism, unspecified; I10 Essential (primary) hypertension; K21.9 Gastro-esophageal reflux disease without esophagitis; Z87.891 Personal history of nicotine dependence; E78.5 Hyperlipidemia, unspecified; E66.9 Obesity, unspecified; Z68.26 Body mass index [BMI] 26.0-26.9, adult | CPT/HCPCS: 96523 ==

== ENCOUNTER 2020-01-07 00:08 | Day surgery (SDC) | payer OTHER ==
[2020-01-08] MEDS ORDERED: Ipratropium Bro30 ML (16:46)
== END 2020-01-07 22:45 | disposition home or self-care (01) ==
LOC: ATC 00:08
DX: R19.7 Diarrhea, unspecified (principal); E03.9 Hypothyroidism, unspecified; E66.9 Obesity, unspecified; F32.9 Major depressive disorder, single episode, unspecified; I10 Essential (primary) hypertension; G25.81 Restless legs syndrome; K21.9 Gastro-esophageal reflux disease without esophagitis; G47.33 Obstructive sleep apnea (adult) (pediatric); E11.9 Type 2 diabetes mellitus without complications; E78.5 Hyperlipidemia, unspecified; Z79.899 Other long term (current) drug therapy

== ENCOUNTER 2020-01-14 00:17 | Day surgery (SDC) | payer OTHER ==
[~2020-01-14 00:17] MED LIST changes: +Ipratropium Bro30 ML
== END 2020-01-14 09:00 | disposition home or self-care (01) ==
LOC: ATC 00:17
DX: R19.7 Diarrhea, unspecified (principal); E03.9 Hypothyroidism, unspecified; F32.9 Major depressive disorder, single episode, unspecified; E66.9 Obesity, unspecified; I10 Essential (primary) hypertension; G25.81 Restless legs syndrome; K21.9 Gastro-esophageal reflux disease without esophagitis; K58.9 Irritable bowel syndrome, unspecified; G47.33 Obstructive sleep apnea (adult) (pediatric); E11.9 Type 2 diabetes mellitus without complications; Z79.899 Other long term (current) drug therapy
CPT/HCPCS: 99211

== ENCOUNTER 2020-01-22 00:06 | Day surgery (SDC) | payer OTHER | END 2020-01-22 09:04 | disposition home or self-care (01) | DX: R19.7 Diarrhea, unspecified (principal); E03.9 Hypothyroidism, unspecified; F32.9 Major depressive disorder, single episode, unspecified; E66.9 Obesity, unspecified; I10 Essential (primary) hypertension; K21.9 Gastro-esophageal reflux disease without esophagitis; G47.33 Obstructive sleep apnea (adult) (pediatric); E11.9 Type 2 diabetes mellitus without complications; E78.5 Hyperlipidemia, unspecified; Z87.891 Personal history of nicotine dependence; Z79.899 Other long term (current) drug therapy ==

== ENCOUNTER 2020-01-29 00:05 | Day surgery (SDC) | payer OTHER | END 2020-01-29 09:20 | disposition home or self-care (01) | LOC: ATC 00:05 | DX: R19.7 Diarrhea, unspecified (principal); I10 Essential (primary) hypertension; E03.9 Hypothyroidism, unspecified; E66.9 Obesity, unspecified; E78.5 Hyperlipidemia, unspecified; E11.9 Type 2 diabetes mellitus without complications; Z87.891 Personal history of nicotine dependence; Z68.26 Body mass index [BMI] 26.0-26.9, adult; Z79.899 Other long term (current) drug therapy | CPT/HCPCS: 96523 ==

== ENCOUNTER 2020-02-04 00:25 | Day surgery (SDC) | payer OTHER | END 2020-02-05 23:11 | disposition home or self-care (01) | LOC: ATC 00:25 | DX: R19.7 Diarrhea, unspecified (principal); I10 Essential (primary) hypertension; E03.9 Hypothyroidism, unspecified; Z79.899 Other long term (current) drug therapy | CPT/HCPCS: 96523 ==

== ENCOUNTER 2020-02-11 00:22 | Day surgery (SDC) | payer OTHER | END 2020-02-11 10:10 | disposition home or self-care (01) | LOC: ATC 00:22 | DX: R19.7 Diarrhea, unspecified (principal); I10 Essential (primary) hypertension; E03.9 Hypothyroidism, unspecified; Z88.0 Allergy status to penicillin; Z88.5 Allergy status to narcotic agent; Z88.8 Allergy status to other drugs, medicaments and biological substances; Z88.6 Allergy status to analgesic agent | CPT/HCPCS: 96523 ==

== ENCOUNTER → 2020-02-15 | Outpatient (CLI) | payer OTHER ==
[2020-02-15 15:21] LABS: Source, Urine Clean Catch
[2020-02-15 15:57] LABS: Bilirubin, Urine Neg (Neg); Blood, Urine 1+ (Neg); Glucose Qualitative, Urine Neg (Neg); Ketones, Urine Neg (Neg); Leukocyte Esterase, Urine 2+ (Neg); Nitrite, Urine Pos (Neg); Protein, Urine Neg (Neg); Urobilinogen, Urine NORM (Normal)
[2020-02-15 16:03] LABS: Appearance, Urine Clear (Clear); Color, Urine Yellow (P-Yellow)
[2020-02-15 16:06] LABS: Bacteria Many /hpf; Squamous Epithelial Cells Few /hpf (Few)
== END ==
LOC: OLS 15:20 → LAB SHORT 15:20
PROVIDERS: Internal Medicine
DX: N39.0 Urinary tract infection, site not specified (principal)
CPT/HCPCS: 81001; 87077; 87086; 87186

== ENCOUNTER 2020-02-18 00:11 | Day surgery (SDC) | payer OTHER | END 2020-02-18 09:36 | disposition home or self-care (01) | LOC: ATC 00:11 | DX: I10 Essential (primary) hypertension (principal); J30.9 Allergic rhinitis, unspecified; Z79.899 Other long term (current) drug therapy | CPT/HCPCS: 99211 ==

== ENCOUNTER 2020-02-25 00:04 | Day surgery (SDC) | payer OTHER ==
[~2020-02-25 00:04] MED LIST changes: +ATROVENT HFA12.9 GM INH; -CHOL10002; -Ipratropium Bro30 ML; +VITAMIN D3
== END 2020-02-25 09:37 | disposition home or self-care (01) ==
LOC: ATC 00:04
DX: Z45.2 Encounter for adjustment and management of vascular access device (principal); I10 Essential (primary) hypertension; E03.9 Hypothyroidism, unspecified; Z88.1 Allergy status to other antibiotic agents; Z88.5 Allergy status to narcotic agent; Z88.8 Allergy status to other drugs, medicaments and biological substances; Z79.899 Other long term (current) drug therapy
CPT/HCPCS: 96523

== ENCOUNTER → 2020-02-25 | Outpatient (CLI) | payer OTHER ==
[2020-02-25 12:03] LABS: Bilirubin, Urine Neg (Neg); Blood, Urine Neg (Neg); Glucose Qualitative, Urine Neg (Neg); Ketones, Urine Neg (Neg); Leukocyte Esterase, Urine 1+ (Neg); Nitrite, Urine Neg (Neg); Protein, Urine Neg (Neg); Specific Gravity, Urine 1.025 (1.003-1.022); Urobilinogen, Urine NORM (Normal)
[2020-02-25 12:35] LABS: Appearance, Urine Turbid (Clear); Color, Urine Yellow (P-Yellow)
[2020-02-25 12:36] LABS: Red Blood Cells, Urine 0-2 /hpf (0-2); White Blood Cells, Urine 0-2 /hpf (0-5)
[2020-02-25 12:37] LABS: Amorphous Heavy (0-Heavy); Bacteria Rare /hpf; Calcium Oxalate Crystals Many /hpf; Squamous Epithelial Cells Few /hpf (Few)
== END | disposition home or self-care (01) ==
LOC: LAB SHORT 09:58 → LAB 09:58
PROVIDERS: Internal Medicine
DX: N39.0 Urinary tract infection, site not specified (principal)
CPT/HCPCS: 81001; 87086

== ENCOUNTER 2020-03-10 00:07 | Day surgery (SDC) | payer OTHER | END 2020-03-10 09:11 | disposition home or self-care (01) | LOC: ATC 00:07 | DX: I10 Essential (primary) hypertension (principal); E03.9 Hypothyroidism, unspecified; J31.0 Chronic rhinitis; Z88.1 Allergy status to other antibiotic agents; Z88.5 Allergy status to narcotic agent; Z88.6 Allergy status to analgesic agent; Z79.899 Other long term (current) drug therapy | CPT/HCPCS: 99211 ==

== ENCOUNTER 2020-03-17 00:15 | Day surgery (SDC) | payer OTHER | END 2020-03-17 16:02 | disposition home or self-care (01) | LOC: ATC 00:15 | DX: I10 Essential (primary) hypertension (principal); E03.9 Hypothyroidism, unspecified; Z79.899 Other long term (current) drug therapy | CPT/HCPCS: 99211 ==

== ENCOUNTER → 2020-04-09 | Outpatient (CLI) | payer OTHER ==
[2020-04-13 15:10] LABS: 5-HIAA, URINE 4.1 mg/L (Undefined); CREATININE, URINE 90.6 mg/dL (Not Estab.)
[2020-04-15 11:43] LABS: FATS, NEUTRAL Normal (.); FATS, TOTAL Normal (.)
== END | disposition home or self-care (01) ==
LOC: LAB SHORT 09:00 → LAB 09:00 → LAB FUT 04-03 12:05 → EDSTATUS 04-03 12:05
PROVIDERS: Internal Medicine Gastroenterology
DX: R19.7 Diarrhea, unspecified (principal)
CPT/HCPCS: 81050; 82135; 82570; 82705; 83497

== ENCOUNTER 2020-05-05 00:13 | Day surgery (SDC) | payer OTHER | END 2020-05-05 10:00 | disposition home or self-care (01) | LOC: ATC 00:13 | DX: I10 Essential (primary) hypertension (principal); E03.9 Hypothyroidism, unspecified; Z88.6 Allergy status to analgesic agent; Z88.1 Allergy status to other antibiotic agents; Z88.8 Allergy status to other drugs, medicaments and biological substances; Z88.5 Allergy status to narcotic agent; Z79.899 Other long term (current) drug therapy | CPT/HCPCS: 96523 ==

== ENCOUNTER → 2020-05-07 | Outpatient (CLI) | payer OTHER ==
[2020-05-10 14:10] LABS: DOPAMINE, URINE 346 ug/L (Undefined); METANEPHRINE, UR 211 ug/L (Undefined)
== END | disposition home or self-care (01) ==
LOC: LAB 08:30 → LAB SHORT 08:30 → LAB FUT 05-05 17:00
PROVIDERS: Internal Medicine
DX: L74.9 Eccrine sweat disorder, unspecified (principal)
CPT/HCPCS: 81050

== ENCOUNTER 2020-05-13 00:21 | Day surgery (SDC) | payer OTHER | END 2020-05-13 10:02 | disposition home or self-care (01) | LOC: ATC 00:21 | DX: I10 Essential (primary) hypertension (principal); E03.9 Hypothyroidism, unspecified; Z88.6 Allergy status to analgesic agent; Z88.1 Allergy status to other antibiotic agents; Z88.8 Allergy status to other drugs, medicaments and biological substances; Z88.5 Allergy status to narcotic agent; Z79.899 Other long term (current) drug therapy | CPT/HCPCS: 96523 ==

== ENCOUNTER 2020-05-19 00:18 | Day surgery (SDC) | payer OTHER | END 2020-05-19 10:10 | disposition home or self-care (01) | LOC: ATC 00:18 | DX: I10 Essential (primary) hypertension (principal); E03.9 Hypothyroidism, unspecified; Z88.1 Allergy status to other antibiotic agents; Z88.6 Allergy status to analgesic agent; Z88.8 Allergy status to other drugs, medicaments and biological substances; Z88.5 Allergy status to narcotic agent; Z79.899 Other long term (current) drug therapy | CPT/HCPCS: 96523 ==

== ENCOUNTER 2020-05-26 00:38 | Day surgery (SDC) | payer OTHER | END 2020-05-26 10:00 | disposition home or self-care (01) | LOC: ATC 00:38 | DX: I10 Essential (primary) hypertension (principal); E03.9 Hypothyroidism, unspecified; Z88.6 Allergy status to analgesic agent; Z88.1 Allergy status to other antibiotic agents; Z88.5 Allergy status to narcotic agent; Z79.899 Other long term (current) drug therapy | CPT/HCPCS: 96523 ==

== ENCOUNTER 2020-06-02 00:09 | Day surgery (SDC) | payer OTHER | END 2020-06-02 10:05 | disposition home or self-care (01) | LOC: ATC 00:09 | DX: I10 Essential (primary) hypertension (principal); E03.9 Hypothyroidism, unspecified; Z88.5 Allergy status to narcotic agent; Z88.6 Allergy status to analgesic agent; Z79.899 Other long term (current) drug therapy; Z88.8 Allergy status to other drugs, medicaments and biological substances; Z88.1 Allergy status to other antibiotic agents | CPT/HCPCS: 96523 ==

== ENCOUNTER 2020-06-21 09:57 | Day surgery (SDC) | payer OTHER | END 2020-06-21 10:20 | disposition home or self-care (01) | LOC: ATC 09:57 | DX: I10 Essential (primary) hypertension (principal); E03.9 Hypothyroidism, unspecified; Z79.899 Other long term (current) drug therapy; Z88.6 Allergy status to analgesic agent; Z88.1 Allergy status to other antibiotic agents; Z88.5 Allergy status to narcotic agent | CPT/HCPCS: 96523 ==

== ENCOUNTER 2020-06-30 00:08 | Day surgery (SDC) | payer OTHER | END 2020-06-30 10:10 | disposition home or self-care (01) | LOC: ATC 00:08 | DX: Z45.2 Encounter for adjustment and management of vascular access device (principal); E86.0 Dehydration; I10 Essential (primary) hypertension; E03.9 Hypothyroidism, unspecified; Z88.1 Allergy status to other antibiotic agents; Z88.5 Allergy status to narcotic agent; Z88.6 Allergy status to analgesic agent; Z88.8 Allergy status to other drugs, medicaments and biological substances; Z79.899 Other long term (current) drug therapy | CPT/HCPCS: 96523 ==

== ENCOUNTER 2020-07-07 00:33 | Day surgery (SDC) | payer OTHER | END 2020-07-07 09:32 | disposition home or self-care (01) | LOC: ATC 00:33 | DX: Z45.2 Encounter for adjustment and management of vascular access device (principal); I10 Essential (primary) hypertension; E03.9 Hypothyroidism, unspecified; F41.9 Anxiety disorder, unspecified; Z88.1 Allergy status to other antibiotic agents; Z88.6 Allergy status to analgesic agent; Z88.8 Allergy status to other drugs, medicaments and biological substances; Z88.5 Allergy status to narcotic agent; Z79.899 Other long term (current) drug therapy | CPT/HCPCS: 99211 ==

== ENCOUNTER 2020-07-14 00:10 | Day surgery (SDC) | payer OTHER ==
--- NOTE | 2020-07-14 10:02 | NUR ---
PT HAS BEEN OFF HER BP MEDICATIONS D/T A LAB TEST THAT WAS DONE THIS AM. PT GOING HOME TO TAKE HER MEDICATIONS. PT STATES SHE FEELS FINE.
== END 2020-07-14 09:51 | disposition home or self-care (01) ==
LOC: ATC 00:10
DX: I10 Essential (primary) hypertension (principal); E03.9 Hypothyroidism, unspecified; Z79.899 Other long term (current) drug therapy; Z88.6 Allergy status to analgesic agent; Z88.0 Allergy status to penicillin; Z88.1 Allergy status to other antibiotic agents; Z88.5 Allergy status to narcotic agent
CPT/HCPCS: 36591

== ENCOUNTER 2020-07-22 00:07 | Day surgery (SDC) | payer OTHER | END 2020-07-22 11:12 | disposition home or self-care (01) | LOC: ATC 00:07 | DX: Z45.2 Encounter for adjustment and management of vascular access device (principal); E86.0 Dehydration; I10 Essential (primary) hypertension; E03.9 Hypothyroidism, unspecified; Z88.0 Allergy status to penicillin; Z88.1 Allergy status to other antibiotic agents; Z88.6 Allergy status to analgesic agent; Z88.5 Allergy status to narcotic agent; Z88.8 Allergy status to other drugs, medicaments and biological substances; Z79.899 Other long term (current) drug therapy | CPT/HCPCS: 96523 ==

== ENCOUNTER 2020-07-28 01:48 | Day surgery (SDC) | payer OTHER | END 2020-07-28 09:28 | disposition home or self-care (01) | LOC: ATC 01:48 | DX: I10 Essential (primary) hypertension (principal); E03.9 Hypothyroidism, unspecified; Z88.6 Allergy status to analgesic agent; Z88.0 Allergy status to penicillin; Z88.1 Allergy status to other antibiotic agents; Z88.5 Allergy status to narcotic agent; Z79.899 Other long term (current) drug therapy | CPT/HCPCS: 96523 ==

== ENCOUNTER 2020-08-04 00:22 | Day surgery (SDC) | payer OTHER | END 2020-08-04 11:02 | disposition home or self-care (01) | LOC: ATC 00:22 | DX: Z45.2 Encounter for adjustment and management of vascular access device (principal); I10 Essential (primary) hypertension; E03.9 Hypothyroidism, unspecified; E86.0 Dehydration; Z88.1 Allergy status to other antibiotic agents; Z88.6 Allergy status to analgesic agent; Z88.8 Allergy status to other drugs, medicaments and biological substances; Z88.5 Allergy status to narcotic agent; Z79.899 Other long term (current) drug therapy | CPT/HCPCS: 96523 ==

== ENCOUNTER 2020-08-11 00:04 | Day surgery (SDC) | payer OTHER ==
[2020-08-11] MEDS ORDERED: ESTRADIOL (TWI1 EACH TD (08:50)
[2020-08-11] MEDS ORDERED: Synthroid/Levo0.2 MG PO (08:50)
== END 2020-08-11 09:00 | disposition home or self-care (01) ==
LOC: ATC 00:04
DX: Z45.2 Encounter for adjustment and management of vascular access device (principal); I10 Essential (primary) hypertension; E03.9 Hypothyroidism, unspecified; Z88.0 Allergy status to penicillin; Z88.1 Allergy status to other antibiotic agents; Z88.6 Allergy status to analgesic agent; Z88.5 Allergy status to narcotic agent; Z88.8 Allergy status to other drugs, medicaments and biological substances; Z79.899 Other long term (current) drug therapy
CPT/HCPCS: 99211

== ENCOUNTER 2020-08-18 00:06 | Day surgery (SDC) | payer OTHER ==
[~2020-08-18 00:06] MED LIST changes: +ESTRADIOL (TWI1 EACH TD; +Synthroid/Levo0.2 MG PO
== END 2020-08-18 09:20 | disposition home or self-care (01) ==
LOC: ATC 00:06
DX: Z45.2 Encounter for adjustment and management of vascular access device (principal); E86.0 Dehydration; I77.1 Stricture of artery; E07.9 Disorder of thyroid, unspecified; M19.90 Unspecified osteoarthritis, unspecified site; K91.1 Postgastric surgery syndromes; E11.9 Type 2 diabetes mellitus without complications; E66.9 Obesity, unspecified; Z68.28 Body mass index [BMI] 28.0-28.9, adult; G47.33 Obstructive sleep apnea (adult) (pediatric); G25.81 Restless legs syndrome; Z87.891 Personal history of nicotine dependence; Z79.899 Other long term (current) drug therapy; Z88.1 Allergy status to other antibiotic agents; Z88.5 Allergy status to narcotic agent; Z88.6 Allergy status to analgesic agent; Z88.8 Allergy status to other drugs, medicaments and biological substances
CPT/HCPCS: 99211

== ENCOUNTER 2020-08-25 00:04 | Day surgery (SDC) | payer OTHER | END 2020-08-25 09:01 | disposition home or self-care (01) | LOC: ATC 00:04 | DX: Z45.2 Encounter for adjustment and management of vascular access device (principal); I10 Essential (primary) hypertension; E03.9 Hypothyroidism, unspecified; Z88.0 Allergy status to penicillin; Z88.1 Allergy status to other antibiotic agents; Z88.5 Allergy status to narcotic agent; Z88.8 Allergy status to other drugs, medicaments and biological substances; Z88.6 Allergy status to analgesic agent; Z79.899 Other long term (current) drug therapy | CPT/HCPCS: 96523 ==

== ENCOUNTER 2020-09-01 00:13 | Day surgery (SDC) | payer OTHER | END 2020-09-01 09:10 | disposition home or self-care (01) | LOC: ATC 00:13 | DX: Z45.2 Encounter for adjustment and management of vascular access device (principal); I10 Essential (primary) hypertension; E03.9 Hypothyroidism, unspecified; E86.0 Dehydration; Z88.0 Allergy status to penicillin; Z88.1 Allergy status to other antibiotic agents; Z88.6 Allergy status to analgesic agent; Z88.5 Allergy status to narcotic agent; Z88.8 Allergy status to other drugs, medicaments and biological substances; Z79.51 Long term (current) use of inhaled steroids; Z79.899 Other long term (current) drug therapy | CPT/HCPCS: 99211 ==

== ENCOUNTER 2020-09-08 00:33 | Day surgery (SDC) | payer OTHER ==
[~2020-09-08 00:33] MED LIST changes: +ESTRADIOL (TWI1 EACH SC; -ESTRADIOL (TWI1 EACH TD
== END 2020-09-08 09:35 | disposition home or self-care (01) ==
LOC: ATC 00:33
DX: Z45.2 Encounter for adjustment and management of vascular access device (principal); I10 Essential (primary) hypertension; E03.9 Hypothyroidism, unspecified; E86.0 Dehydration; Z88.0 Allergy status to penicillin; Z88.1 Allergy status to other antibiotic agents; Z88.5 Allergy status to narcotic agent; Z88.6 Allergy status to analgesic agent; Z88.8 Allergy status to other drugs, medicaments and biological substances; Z79.899 Other long term (current) drug therapy
CPT/HCPCS: 96523

== ENCOUNTER 2020-09-15 00:19 | Day surgery (SDC) | payer OTHER | END 2020-09-15 08:55 | disposition home or self-care (01) | LOC: ATC 00:19 | DX: Z45.2 Encounter for adjustment and management of vascular access device (principal); I10 Essential (primary) hypertension; E03.9 Hypothyroidism, unspecified; E86.0 Dehydration; Z88.0 Allergy status to penicillin; Z88.1 Allergy status to other antibiotic agents; Z88.5 Allergy status to narcotic agent; Z88.6 Allergy status to analgesic agent; Z88.8 Allergy status to other drugs, medicaments and biological substances; Z79.899 Other long term (current) drug therapy | CPT/HCPCS: 96523 ==

== ENCOUNTER 2020-09-22 00:12 | Day surgery (SDC) | payer OTHER | END 2020-09-22 09:42 | disposition home or self-care (01) | LOC: ATC 00:12 | DX: Z45.2 Encounter for adjustment and management of vascular access device (principal); I10 Essential (primary) hypertension; E03.9 Hypothyroidism, unspecified; Z88.0 Allergy status to penicillin; Z88.1 Allergy status to other antibiotic agents; Z88.5 Allergy status to narcotic agent; Z88.6 Allergy status to analgesic agent; Z88.8 Allergy status to other drugs, medicaments and biological substances | CPT/HCPCS: 96523 ==

== ENCOUNTER 2020-09-29 00:11 | Day surgery (SDC) | payer OTHER | END 2020-09-29 09:02 | disposition home or self-care (01) | LOC: ATC 00:11 | DX: Z45.2 Encounter for adjustment and management of vascular access device (principal) | CPT/HCPCS: 96523 ==

== ENCOUNTER 2020-10-06 00:28 | Day surgery (SDC) | payer OTHER | END 2020-10-06 14:33 | disposition home or self-care (01) | LOC: ATC 00:28 | DX: Z45.2 Encounter for adjustment and management of vascular access device (principal); I10 Essential (primary) hypertension; E03.9 Hypothyroidism, unspecified; Z88.1 Allergy status to other antibiotic agents; Z88.8 Allergy status to other drugs, medicaments and biological substances; Z88.5 Allergy status to narcotic agent; Z79.899 Other long term (current) drug therapy | CPT/HCPCS: 96523 ==

== ENCOUNTER 2020-10-13 00:26 | Day surgery (SDC) | payer OTHER | END 2020-10-13 09:57 | disposition home or self-care (01) | LOC: ATC 00:26 | DX: Z45.2 Encounter for adjustment and management of vascular access device (principal); I10 Essential (primary) hypertension; E03.9 Hypothyroidism, unspecified; Z88.1 Allergy status to other antibiotic agents; Z88.5 Allergy status to narcotic agent; Z88.8 Allergy status to other drugs, medicaments and biological substances | CPT/HCPCS: 96523 ==

== ENCOUNTER 2020-10-20 00:21 | Day surgery (SDC) | payer OTHER ==
[2020-10-20] MEDS ORDERED: LIOT5 PO (09:22)
[2020-10-20] MEDS ORDERED: DEPO-ESTRADIOL IM (09:27)
[2020-10-20] MEDS ORDERED: EUTHYROX175 MCG PO (09:28)
[2020-10-20] MEDS ORDERED: CYAN1000I IM (09:30)
== END 2020-10-20 09:01 | disposition home or self-care (01) ==
LOC: ATC 00:21
DX: I10 Essential (primary) hypertension (principal); E03.9 Hypothyroidism, unspecified; Z88.6 Allergy status to analgesic agent; Z88.1 Allergy status to other antibiotic agents; Z88.5 Allergy status to narcotic agent; Z88.8 Allergy status to other drugs, medicaments and biological substances
CPT/HCPCS: 96523

== ENCOUNTER 2020-10-27 00:20 | Day surgery (SDC) | payer OTHER ==
[~2020-10-27 00:20] MED LIST changes: +CYAN1000I IM; +DEPO-ESTRADIOL IM; +EUTHYROX175 MCG PO; +LIOT5 PO
== END 2020-10-27 09:24 | disposition home or self-care (01) ==
LOC: ATC 00:20
DX: Z45.2 Encounter for adjustment and management of vascular access device (principal); I10 Essential (primary) hypertension; E03.9 Hypothyroidism, unspecified; Z88.6 Allergy status to analgesic agent; Z88.1 Allergy status to other antibiotic agents; Z88.5 Allergy status to narcotic agent; Z88.8 Allergy status to other drugs, medicaments and biological substances
CPT/HCPCS: 96523

== ENCOUNTER 2020-11-03 00:21 | Day surgery (SDC) | payer OTHER | END 2020-11-03 10:50 | disposition home or self-care (01) | LOC: ATC 00:21 | DX: Z45.2 Encounter for adjustment and management of vascular access device (principal); I10 Essential (primary) hypertension; E03.9 Hypothyroidism, unspecified; Z88.6 Allergy status to analgesic agent; Z88.1 Allergy status to other antibiotic agents; Z88.5 Allergy status to narcotic agent; Z88.8 Allergy status to other drugs, medicaments and biological substances | CPT/HCPCS: 96523 ==

== ENCOUNTER 2020-11-10 01:03 | Day surgery (SDC) | payer OTHER | END 2020-11-10 10:05 | disposition home or self-care (01) | LOC: ATC 01:03 | DX: Z45.2 Encounter for adjustment and management of vascular access device (principal); I10 Essential (primary) hypertension; E03.9 Hypothyroidism, unspecified | CPT/HCPCS: 96523 ==

== ENCOUNTER 2020-11-17 00:20 | Day surgery (SDC) | payer OTHER | END 2020-11-17 10:04 | disposition home or self-care (01) | LOC: ATC 00:20 | DX: Z45.2 Encounter for adjustment and management of vascular access device (principal); I10 Essential (primary) hypertension; E03.9 Hypothyroidism, unspecified; Z88.6 Allergy status to analgesic agent; Z88.1 Allergy status to other antibiotic agents; Z88.5 Allergy status to narcotic agent; Z88.8 Allergy status to other drugs, medicaments and biological substances | CPT/HCPCS: 96523 ==

== ENCOUNTER 2020-12-01 01:42 | Day surgery (SDC) | payer OTHER | END 2020-12-01 10:07 | disposition home or self-care (01) | LOC: ATC 01:42 | DX: Z45.2 Encounter for adjustment and management of vascular access device (principal); I10 Essential (primary) hypertension; E03.9 Hypothyroidism, unspecified; Z88.6 Allergy status to analgesic agent; Z88.1 Allergy status to other antibiotic agents; Z88.8 Allergy status to other drugs, medicaments and biological substances; Z88.5 Allergy status to narcotic agent | CPT/HCPCS: 96523 ==

== ENCOUNTER 2020-12-08 00:08 | Day surgery (SDC) | payer OTHER | END 2020-12-08 10:00 | disposition home or self-care (01) | LOC: ATC 00:08 | DX: Z45.2 Encounter for adjustment and management of vascular access device (principal) | CPT/HCPCS: 96523 ==

== ENCOUNTER 2020-12-15 00:28 | Day surgery (SDC) | payer OTHER | END 2020-12-15 10:07 | disposition home or self-care (01) | LOC: ATC 00:28 | DX: Z45.2 Encounter for adjustment and management of vascular access device (principal); I10 Essential (primary) hypertension; E03.9 Hypothyroidism, unspecified | CPT/HCPCS: 96523 ==

== ENCOUNTER 2020-12-22 00:38 | Day surgery (SDC) | payer OTHER | END 2020-12-22 10:00 | disposition home or self-care (01) | LOC: ATC 00:38 | DX: Z45.2 Encounter for adjustment and management of vascular access device (principal); I10 Essential (primary) hypertension; E03.9 Hypothyroidism, unspecified; Z88.6 Allergy status to analgesic agent; Z88.1 Allergy status to other antibiotic agents; Z88.5 Allergy status to narcotic agent; Z88.8 Allergy status to other drugs, medicaments and biological substances | CPT/HCPCS: 96523 ==

== ENCOUNTER 2020-12-29 00:05 | Day surgery (SDC) | payer OTHER | END 2020-12-29 09:58 | disposition home or self-care (01) | LOC: ATC 00:05 | DX: Z45.2 Encounter for adjustment and management of vascular access device (principal); I10 Essential (primary) hypertension; E03.9 Hypothyroidism, unspecified | CPT/HCPCS: 96523; 99211 ==

== ENCOUNTER 2021-01-12 00:40 | Day surgery (SDC) | payer OTHER | END 2021-01-12 10:10 | disposition home or self-care (01) | LOC: ATC 00:40 | DX: Z45.2 Encounter for adjustment and management of vascular access device (principal); I10 Essential (primary) hypertension; E03.9 Hypothyroidism, unspecified | CPT/HCPCS: 96523 ==

== ENCOUNTER 2021-01-19 00:26 | Day surgery (SDC) | payer OTHER | END 2021-01-19 10:02 | disposition home or self-care (01) | LOC: ATC 00:26 | DX: Z45.2 Encounter for adjustment and management of vascular access device (principal); I10 Essential (primary) hypertension; E03.9 Hypothyroidism, unspecified; Z88.6 Allergy status to analgesic agent; Z88.1 Allergy status to other antibiotic agents; Z88.5 Allergy status to narcotic agent; Z88.8 Allergy status to other drugs, medicaments and biological substances | CPT/HCPCS: 96523 ==

== ENCOUNTER 2021-02-09 00:15 | Day surgery (SDC) | payer OTHER | END 2021-02-09 09:58 | disposition home or self-care (01) | LOC: ATC 00:15 | DX: Z45.2 Encounter for adjustment and management of vascular access device (principal); I10 Essential (primary) hypertension | CPT/HCPCS: 96523 ==

== ENCOUNTER 2021-02-16 00:06 | Day surgery (SDC) | payer OTHER | END 2021-02-16 10:15 | disposition home or self-care (01) | LOC: ATC 00:06 | DX: Z45.2 Encounter for adjustment and management of vascular access device (principal) | CPT/HCPCS: 99211 ==

== ENCOUNTER 2021-02-23 01:10 | Day surgery (SDC) | payer OTHER | END 2021-02-23 10:00 | disposition home or self-care (01) | LOC: ATC 01:10 | DX: Z45.2 Encounter for adjustment and management of vascular access device (principal); E03.9 Hypothyroidism, unspecified; I10 Essential (primary) hypertension | CPT/HCPCS: 96523 ==

== ENCOUNTER 2021-03-02 00:21 | Day surgery (SDC) | payer OTHER | END 2021-03-02 10:10 | disposition home or self-care (01) | LOC: ATC 00:21 | DX: Z45.2 Encounter for adjustment and management of vascular access device (principal); E03.9 Hypothyroidism, unspecified; I10 Essential (primary) hypertension | CPT/HCPCS: 96523 ==

== ENCOUNTER 2021-03-09 02:30 | Day surgery (SDC) | payer OTHER | END 2021-03-09 09:08 | disposition home or self-care (01) | LOC: ATC 02:30 | DX: Z45.2 Encounter for adjustment and management of vascular access device (principal); E03.9 Hypothyroidism, unspecified; G43.909 Migraine, unspecified, not intractable, without status migrainosus; I10 Essential (primary) hypertension; Z79.890 Hormone replacement therapy | CPT/HCPCS: 96523 ==

== ENCOUNTER 2021-03-16 00:10 | Day surgery (SDC) | payer OTHER | END 2021-03-16 16:14 | disposition home or self-care (01) | LOC: ATC 00:10 | DX: Z45.2 Encounter for adjustment and management of vascular access device (principal); I10 Essential (primary) hypertension; E03.9 Hypothyroidism, unspecified | CPT/HCPCS: 96523 ==

== ENCOUNTER 2021-03-30 02:29 | Day surgery (SDC) | payer OTHER | END 2021-03-30 10:15 | disposition home or self-care (01) | LOC: ATC 02:29 | DX: Z45.2 Encounter for adjustment and management of vascular access device (principal); E03.9 Hypothyroidism, unspecified; I10 Essential (primary) hypertension; G43.909 Migraine, unspecified, not intractable, without status migrainosus; Z79.890 Hormone replacement therapy | CPT/HCPCS: 96523 ==

== ENCOUNTER 2021-04-06 09:50 | Day surgery (SDC) | payer OTHER | END 2021-04-06 10:13 | disposition home or self-care (01) | LOC: ATC 09:50 | DX: Z45.2 Encounter for adjustment and management of vascular access device (principal); E03.9 Hypothyroidism, unspecified; I10 Essential (primary) hypertension; G43.909 Migraine, unspecified, not intractable, without status migrainosus | CPT/HCPCS: 96523 ==

== ENCOUNTER 2021-04-14 01:37 | Day surgery (SDC) | payer OTHER | END 2021-04-14 09:01 | disposition home or self-care (01) | LOC: ATC 01:37 | DX: Z45.2 Encounter for adjustment and management of vascular access device (principal); I10 Essential (primary) hypertension; E03.9 Hypothyroidism, unspecified | CPT/HCPCS: 96523 ==

== ENCOUNTER 2021-04-20 01:53 | Day surgery (SDC) | payer OTHER | END 2021-04-20 09:16 | disposition home or self-care (01) | LOC: ATC 01:53 | DX: Z45.2 Encounter for adjustment and management of vascular access device (principal); E03.9 Hypothyroidism, unspecified; I10 Essential (primary) hypertension; G43.909 Migraine, unspecified, not intractable, without status migrainosus | CPT/HCPCS: 96523 ==

== ENCOUNTER 2021-05-12 02:32 | Day surgery (SDC) | payer OTHER | END 2021-05-12 08:29 | disposition home or self-care (01) | LOC: ATC 02:32 | DX: Z45.2 Encounter for adjustment and management of vascular access device (principal); I10 Essential (primary) hypertension; E03.9 Hypothyroidism, unspecified | CPT/HCPCS: 96523 ==

== ENCOUNTER 2021-05-25 02:25 | Day surgery (SDC) | payer OTHER ==
[2021-05-25] MEDS ORDERED: IRON18 MG PO (11:04)
== END 2021-05-25 11:00 | disposition home or self-care (01) ==
LOC: ATC 02:25
DX: E03.9 Hypothyroidism, unspecified (principal); G43.909 Migraine, unspecified, not intractable, without status migrainosus; I10 Essential (primary) hypertension
CPT/HCPCS: 96523

== ENCOUNTER 2021-06-05 00:21 | Day surgery (SDC) | payer OTHER ==
[~2021-06-05 00:21] MED LIST changes: +IRON18 MG PO
== END 2021-06-05 09:04 | disposition home or self-care (01) ==
LOC: ATC 00:21
DX: Z45.2 Encounter for adjustment and management of vascular access device (principal); E03.9 Hypothyroidism, unspecified; I10 Essential (primary) hypertension
CPT/HCPCS: 96523

== ENCOUNTER 2021-07-09 10:26 | Day surgery (SDC) | payer MEDICARE, OTHER | END 2021-07-09 16:00 | disposition home or self-care (01) | LOC: ATC 10:26 | DX: E86.0 Dehydration (principal) | CPT/HCPCS: 96360; 96361; J1642; J7120 ==

== ENCOUNTER 2021-07-13 04:36 | Day surgery (SDC) | payer MEDICARE, OTHER | END 2021-07-13 16:14 | disposition home or self-care (01) | LOC: ATC 04:36 | DX: E86.0 Dehydration (principal) | CPT/HCPCS: 96360; 96361; J1642; J7120 ==

== ENCOUNTER 2021-07-17 04:26 | Day surgery (SDC) | payer MEDICARE, OTHER | END 2021-07-17 10:14 | disposition home or self-care (01) | LOC: ATC 04:26 | DX: E86.0 Dehydration (principal) | CPT/HCPCS: 96360; 96361; J1642; J7120 ==

== ENCOUNTER → 2021-07-21 | Outpatient (CLI) | payer MEDICARE, OTHER ==
[2021-07-22 10:19] LABS: Stool Occult Bld Immuno 1 Negative (NEGATIVE)
== END | disposition home or self-care (01) ==
LOC: LAB SHORT 14:37 → LAB 14:37
PROVIDERS: Internal Medicine Gastroenterology
DX: Z12.11 Encounter for screening for malignant neoplasm of colon (principal)
CPT/HCPCS: 82274

== ENCOUNTER 2021-07-23 03:37 | Day surgery (SDC) | payer MEDICARE, OTHER | END 2021-07-23 11:09 | disposition home or self-care (01) | LOC: ATC 03:37 | DX: E86.0 Dehydration (principal); E03.9 Hypothyroidism, unspecified; I10 Essential (primary) hypertension; G43.909 Migraine, unspecified, not intractable, without status migrainosus | CPT/HCPCS: 96360; 96361; J1642; J7120 ==

== ENCOUNTER → 2021-08-19 | Outpatient (CLI) | payer MEDICARE ==
[2021-08-20 09:50] LABS: Stool Occult Bld Immuno 1 Negative (NEGATIVE)
== END | disposition home or self-care (01) ==
LOC: LAB 12:56 → LAB SHORT 12:56
PROVIDERS: Internal Medicine Gastroenterology
DX: D50.9 Iron deficiency anemia, unspecified (principal)
CPT/HCPCS: 82274

== ENCOUNTER 2021-09-24 00:16 | Day surgery (SDC) | payer MEDICARE, OTHER | END 2021-09-24 11:19 | disposition home or self-care (01) | LOC: ATC 00:16 | DX: E86.0 Dehydration (principal) | CPT/HCPCS: 96360; 96361; J1642; J7120 ==

== ENCOUNTER 2022-01-05 01:20 | Day surgery (SDC) | payer MEDICARE, OTHER ==
[~2022-01-05 01:20] MED LIST changes: +VERA80 PO
== END 2022-01-05 09:00 | disposition home or self-care (01) ==
LOC: ATC 01:20
DX: Z45.2 Encounter for adjustment and management of vascular access device (principal); I10 Essential (primary) hypertension; K21.9 Gastro-esophageal reflux disease without esophagitis; M19.90 Unspecified osteoarthritis, unspecified site
CPT/HCPCS: J1642

== ENCOUNTER 2022-02-15 09:56 | Day surgery (SDC) | payer MEDICARE, OTHER ==
[2022-02-15] MEDS ORDERED: CYMBALTA20 M2 PO (10:23)
[2022-02-15] MEDS ORDERED: Estradiol0.5 MG PO (10:24)
== END 2022-02-15 12:26 | disposition home or self-care (01) ==
LOC: ATC 09:56
DX: E86.0 Dehydration (principal)
CPT/HCPCS: 96360; 96361; J1642; J7120

== ENCOUNTER 2022-02-19 00:46 | Day surgery (SDC) | payer MEDICARE, OTHER ==
[~2022-02-19 00:46] MED LIST changes: +CYMBALTA20 M2 PO; +Estradiol0.5 MG PO
== END 2022-02-19 11:36 | disposition home or self-care (01) ==
LOC: ATC 00:46
DX: E86.0 Dehydration (principal); I10 Essential (primary) hypertension; K21.9 Gastro-esophageal reflux disease without esophagitis
CPT/HCPCS: 96360; 96361; J1642; J7120

== ENCOUNTER 2022-02-24 00:46 | Day surgery (SDC) | payer MEDICARE, OTHER | END 2022-02-24 10:54 | disposition home or self-care (01) | LOC: ATC 00:46 | DX: E86.0 Dehydration (principal); I10 Essential (primary) hypertension; K21.9 Gastro-esophageal reflux disease without esophagitis | CPT/HCPCS: 96360; 96361; J1642; J7120 ==

== ENCOUNTER 2022-04-07 08:46 | Day surgery (SDC) | payer MEDICARE, OTHER | END 2022-04-07 11:17 | disposition home or self-care (01) | LOC: ATC 08:46 | DX: E86.0 Dehydration (principal); I10 Essential (primary) hypertension | CPT/HCPCS: 96360; 96361; J1642; J7120 ==

== ENCOUNTER 2022-04-10 12:46 | Day surgery (SDC) | payer MEDICARE, OTHER | END 2022-04-10 15:08 | disposition home or self-care (01) | LOC: ATC 12:46 | DX: E86.0 Dehydration (principal); K21.9 Gastro-esophageal reflux disease without esophagitis; I10 Essential (primary) hypertension; M19.90 Unspecified osteoarthritis, unspecified site | CPT/HCPCS: 96360; 96361; J1642; J7120 ==

== ENCOUNTER 2022-04-13 00:27 | Day surgery (SDC) | payer MEDICARE, OTHER | END 2022-04-13 15:37 | disposition home or self-care (01) | LOC: ATC 00:27 | DX: E86.0 Dehydration (principal); I10 Essential (primary) hypertension | CPT/HCPCS: J1642; J7120 ==

== ENCOUNTER 2022-04-16 01:32 | Day surgery (SDC) | payer MEDICARE, OTHER | END 2022-04-16 09:50 | disposition home or self-care (01) | LOC: ATC 01:32 | DX: E86.0 Dehydration (principal) | CPT/HCPCS: 96360; J1642; J7120 ==

== ENCOUNTER 2022-04-19 03:34 | Day surgery (SDC) | payer MEDICARE, OTHER | END 2022-04-19 11:04 | disposition home or self-care (01) | LOC: ATC 03:34 | DX: E86.0 Dehydration (principal); I10 Essential (primary) hypertension; K21.9 Gastro-esophageal reflux disease without esophagitis | CPT/HCPCS: 96360; 96361; J1642; J7120 ==

== ENCOUNTER 2022-04-21 01:36 | Day surgery (SDC) | payer MEDICARE, OTHER | END 2022-04-21 11:47 | disposition home or self-care (01) | LOC: ATC 01:36 | DX: E86.0 Dehydration (principal) | CPT/HCPCS: 96360; 96361; J1642; J7120 ==

== ENCOUNTER 2022-04-23 00:42 | Day surgery (SDC) | payer MEDICARE, OTHER | END 2022-04-23 10:58 | disposition home or self-care (01) | LOC: ATC 00:42 | DX: E86.0 Dehydration (principal) | CPT/HCPCS: J1642; J7120 ==

== ENCOUNTER 2022-05-07 09:58 | Day surgery (SDC) | payer MEDICARE, OTHER | END 2022-05-07 12:15 | disposition home or self-care (01) | LOC: ATC 09:58 | DX: Z45.2 Encounter for adjustment and management of vascular access device (principal); I10 Essential (primary) hypertension; K21.9 Gastro-esophageal reflux disease without esophagitis; M19.90 Unspecified osteoarthritis, unspecified site | CPT/HCPCS: 96360; 96361; J1642; J7120 ==

== ENCOUNTER 2022-05-19 07:26 | Day surgery (SDC) | payer MEDICARE, OTHER | END 2022-05-19 12:14 | disposition home or self-care (01) | LOC: ATC 07:26 | DX: Z45.2 Encounter for adjustment and management of vascular access device (principal); I10 Essential (primary) hypertension; K21.9 Gastro-esophageal reflux disease without esophagitis; M19.90 Unspecified osteoarthritis, unspecified site | CPT/HCPCS: 96360; 96361; J1642; J7120 ==

== ENCOUNTER 2022-06-11 02:57 | Day surgery (SDC) | payer MEDICARE, OTHER | END 2022-06-11 11:56 | disposition home or self-care (01) | LOC: ATC 02:57 | DX: E86.0 Dehydration (principal); I10 Essential (primary) hypertension | CPT/HCPCS: J1642; J7120 ==

== ENCOUNTER 2022-06-16 04:09 | Day surgery (SDC) | payer MEDICARE, OTHER | END 2022-06-16 11:33 | disposition home or self-care (01) | LOC: ATC 04:09 | DX: E86.0 Dehydration (principal); I10 Essential (primary) hypertension | CPT/HCPCS: J1642; J7120 ==

== ENCOUNTER 2022-06-18 03:27 | Day surgery (SDC) | payer MEDICARE, OTHER | END 2022-06-18 16:33 | disposition home or self-care (01) | LOC: ATC 03:27 | DX: E86.0 Dehydration (principal); I10 Essential (primary) hypertension; F32.A Depression, unspecified | CPT/HCPCS: J1642; J7120 ==

== ENCOUNTER 2022-06-21 02:49 | Day surgery (SDC) | payer MEDICARE, OTHER | END 2022-06-21 11:07 | disposition home or self-care (01) | LOC: ATC 02:49 | DX: E86.0 Dehydration (principal); I10 Essential (primary) hypertension | CPT/HCPCS: J1642; J7120 ==

== ENCOUNTER 2022-07-05 00:14 | Day surgery (SDC) | payer MEDICARE, OTHER | END 2022-07-05 11:39 | disposition home or self-care (01) | LOC: ATC 00:14 | DX: E86.0 Dehydration (principal); I10 Essential (primary) hypertension; F32.9 Major depressive disorder, single episode, unspecified | CPT/HCPCS: 96360; 96361; J1642; J7120 ==

== ENCOUNTER 2022-07-07 02:33 | Day surgery (SDC) | payer MEDICARE, OTHER ==
[2022-07-07] MEDS ORDERED: PROM25 (08:29)
== END 2022-07-07 10:27 | disposition home or self-care (01) ==
LOC: ATC 02:33
DX: E86.0 Dehydration (principal); I10 Essential (primary) hypertension
CPT/HCPCS: J1642; J7120

== ENCOUNTER 2022-07-09 01:29 | Day surgery (SDC) | payer MEDICARE, OTHER ==
[~2022-07-09 01:29] MED LIST changes: +PROM25
== END 2022-07-09 12:12 | disposition home or self-care (01) ==
LOC: ATC 01:29
DX: E86.0 Dehydration (principal); I10 Essential (primary) hypertension
CPT/HCPCS: 96360; 96361; J1642; J7120

== ENCOUNTER 2022-07-13 03:53 | Day surgery (SDC) | payer MEDICARE, OTHER | END 2022-07-13 11:45 | disposition home or self-care (01) | LOC: ATC 03:53 | DX: E86.0 Dehydration (principal); I10 Essential (primary) hypertension | CPT/HCPCS: J1642; J7120 ==

== ENCOUNTER 2022-07-16 09:11 | Day surgery (SDC) | payer MEDICARE, OTHER | END 2022-07-16 11:30 | disposition home or self-care (01) | LOC: ATC 09:11 | DX: E86.0 Dehydration (principal); I10 Essential (primary) hypertension | CPT/HCPCS: 96360; 96361; J1642; J7120 ==

== ENCOUNTER 2022-07-19 01:58 | Day surgery (SDC) | payer MEDICARE, OTHER | END 2022-07-19 11:38 | disposition home or self-care (01) | LOC: ATC 01:58 | DX: E86.0 Dehydration (principal); I10 Essential (primary) hypertension | CPT/HCPCS: 96360; 96361; J1642; J7120 ==

== ENCOUNTER 2022-07-21 00:33 | Day surgery (SDC) | payer MEDICARE, OTHER | END 2022-07-21 09:53 | disposition home or self-care (01) | LOC: ATC 00:33 | DX: E86.0 Dehydration (principal); I10 Essential (primary) hypertension; F32.A Depression, unspecified | CPT/HCPCS: 74177; 96360; 96361; J1642; J7120; Q9967 ==

== ENCOUNTER 2022-07-23 00:19 | Day surgery (SDC) | payer MEDICARE, OTHER | END 2022-07-23 11:35 | disposition home or self-care (01) | LOC: ATC 00:19 | DX: E86.0 Dehydration (principal); I10 Essential (primary) hypertension | CPT/HCPCS: 96360; 96361; J1642; J7120 ==

== ENCOUNTER 2022-07-26 01:28 | Day surgery (SDC) | payer MEDICARE, OTHER | END 2022-07-26 11:04 | disposition home or self-care (01) | LOC: ATC 01:28 | DX: E86.0 Dehydration (principal); I10 Essential (primary) hypertension | CPT/HCPCS: 96360; 96361; J1642; J7120 ==

== ENCOUNTER 2022-07-28 00:49 | Day surgery (SDC) | payer MEDICARE, OTHER | END 2022-07-28 11:09 | disposition home or self-care (01) | LOC: ATC 00:49 | DX: E86.0 Dehydration (principal); I10 Essential (primary) hypertension; M19.90 Unspecified osteoarthritis, unspecified site; F32.A Depression, unspecified | CPT/HCPCS: 96360; 96361; J1642; J7120 ==

== ENCOUNTER 2022-07-30 00:20 | Day surgery (SDC) | payer MEDICARE, OTHER | END 2022-07-30 09:44 | disposition home or self-care (01) | LOC: ATC 00:20 | DX: E86.0 Dehydration (principal); I10 Essential (primary) hypertension | CPT/HCPCS: J1642; J7120 ==

== ENCOUNTER 2022-08-02 01:03 | Day surgery (SDC) | payer MEDICARE, OTHER | END 2022-08-02 11:36 | disposition home or self-care (01) | DX: E86.0 Dehydration (principal); I10 Essential (primary) hypertension; F32.A Depression, unspecified ==

== ENCOUNTER 2022-08-04 02:03 | Day surgery (SDC) | payer MEDICARE, OTHER | END 2022-08-04 11:53 | disposition home or self-care (01) | LOC: ATC 02:03 | DX: E86.0 Dehydration (principal); I10 Essential (primary) hypertension; G43.909 Migraine, unspecified, not intractable, without status migrainosus; M19.90 Unspecified osteoarthritis, unspecified site; F32.A Depression, unspecified | CPT/HCPCS: 96360; 96361; J1642; J7120 ==

== ENCOUNTER 2022-08-06 01:55 | Day surgery (SDC) | payer MEDICARE, OTHER | END 2022-08-06 11:39 | disposition home or self-care (01) | LOC: ATC 01:55 | DX: E86.0 Dehydration (principal); I10 Essential (primary) hypertension; G43.909 Migraine, unspecified, not intractable, without status migrainosus; M19.90 Unspecified osteoarthritis, unspecified site | CPT/HCPCS: 96360; 96361; J1642; J7120 ==

== ENCOUNTER 2022-08-11 06:07 | Day surgery (SDC) | payer MEDICARE, OTHER | END 2022-08-11 10:50 | disposition home or self-care (01) | LOC: ATC 06:07 | DX: E86.0 Dehydration (principal); F32.A Depression, unspecified; I10 Essential (primary) hypertension | CPT/HCPCS: 96360; 96361; J1642; J7120 ==

== ENCOUNTER 2022-08-18 00:26 | Day surgery (SDC) | payer MEDICARE, OTHER | END 2022-08-18 09:59 | disposition home or self-care (01) | LOC: ATC 00:26 | DX: E86.0 Dehydration (principal); I10 Essential (primary) hypertension; M19.90 Unspecified osteoarthritis, unspecified site | CPT/HCPCS: 96360; 96361; J1642; J7120 ==

== ENCOUNTER 2022-08-23 00:50 | Day surgery (SDC) | payer MEDICARE, OTHER | END 2022-08-23 11:15 | disposition home or self-care (01) | LOC: ATC 00:50 | DX: E86.0 Dehydration (principal); I10 Essential (primary) hypertension; G43.909 Migraine, unspecified, not intractable, without status migrainosus; M19.90 Unspecified osteoarthritis, unspecified site | CPT/HCPCS: 96360; 96361; J1642; J7120 ==

== ENCOUNTER → 2022-08-24 | Outpatient (CLI) | payer MEDICARE, OTHER | LOC: LAB 12:00 → LAB SHORT 12:00 | PROVIDERS: Internal Medicine Gastroenterology | DX: R19.7 Diarrhea, unspecified (principal); R10.84 Generalized abdominal pain | CPT/HCPCS: 82710 ==

== ENCOUNTER 2022-08-25 00:40 | Day surgery (SDC) | payer MEDICARE, OTHER | END 2022-08-25 11:15 | disposition home or self-care (01) | LOC: ATC 00:40 | DX: E86.0 Dehydration (principal); I10 Essential (primary) hypertension; M19.90 Unspecified osteoarthritis, unspecified site; G43.909 Migraine, unspecified, not intractable, without status migrainosus | CPT/HCPCS: 96360; 96361; J1642; J7120 ==

== ENCOUNTER → 2022-08-25 | Outpatient (CLI) | payer MEDICARE, OTHER ==
[2022-09-03 11:09] LABS: CREATININE, URINE 96.5 mg/dL (Not Estab.)
== END ==
LOC: LAB SHORT 11:30 → LAB 11:30
PROVIDERS: Internal Medicine Gastroenterology
DX: R10.84 Generalized abdominal pain (principal)
CPT/HCPCS: 84110

== ENCOUNTER 2022-08-27 01:13 | Day surgery (SDC) | payer MEDICARE, OTHER | END 2022-08-27 11:08 | disposition home or self-care (01) | LOC: ATC 01:13 | DX: E86.0 Dehydration (principal); I10 Essential (primary) hypertension; G43.909 Migraine, unspecified, not intractable, without status migrainosus; M19.90 Unspecified osteoarthritis, unspecified site | CPT/HCPCS: 96360; 96361; J1642; J7120 ==

== ENCOUNTER 2022-08-30 02:06 | Day surgery (SDC) | payer MEDICARE, OTHER | END 2022-08-30 11:18 | disposition home or self-care (01) | LOC: ATC 02:06 | DX: E86.0 Dehydration (principal); I10 Essential (primary) hypertension; G43.909 Migraine, unspecified, not intractable, without status migrainosus; M19.90 Unspecified osteoarthritis, unspecified site | CPT/HCPCS: 96360; 96361; J1642; J7120 ==

== ENCOUNTER 2022-09-01 00:57 | Day surgery (SDC) | payer MEDICARE, OTHER | END 2022-09-01 10:59 | disposition home or self-care (01) | LOC: ATC 00:57 | DX: E86.0 Dehydration (principal); I10 Essential (primary) hypertension; G43.909 Migraine, unspecified, not intractable, without status migrainosus; M19.90 Unspecified osteoarthritis, unspecified site | CPT/HCPCS: 96360; 96361; J1642; J7120 ==

== ENCOUNTER 2022-09-03 00:13 | Day surgery (SDC) | payer MEDICARE, OTHER | END 2022-09-03 11:10 | disposition home or self-care (01) | LOC: ATC 00:13 | DX: E86.0 Dehydration (principal); I10 Essential (primary) hypertension | CPT/HCPCS: J1642; J7120 ==

== ENCOUNTER 2022-09-06 08:01 | Day surgery (SDC) | payer MEDICARE, OTHER | END 2022-09-06 12:16 | disposition home or self-care (01) | LOC: ATC 08:01 | DX: E86.0 Dehydration (principal); I10 Essential (primary) hypertension | CPT/HCPCS: 96360; 96361; J1642; J7120 ==

== ENCOUNTER 2022-09-08 01:22 | Day surgery (SDC) | payer MEDICARE, OTHER | END 2022-09-08 11:41 | disposition home or self-care (01) | LOC: ATC 01:22 | DX: E86.0 Dehydration (principal); I10 Essential (primary) hypertension; M19.90 Unspecified osteoarthritis, unspecified site; G43.909 Migraine, unspecified, not intractable, without status migrainosus | CPT/HCPCS: 96360; 96361; J1642; J7120 ==

== ENCOUNTER 2022-09-13 00:38 | Day surgery (SDC) | payer MEDICARE, OTHER | END 2022-09-13 12:00 | disposition home or self-care (01) | LOC: ATC 00:38 | DX: E86.0 Dehydration (principal); I10 Essential (primary) hypertension; G43.909 Migraine, unspecified, not intractable, without status migrainosus; M19.90 Unspecified osteoarthritis, unspecified site | CPT/HCPCS: 96360; 96361; J1642; J7120 ==

== ENCOUNTER 2022-09-15 03:00 | Day surgery (SDC) | payer MEDICARE, OTHER | END 2022-09-15 15:29 | disposition home or self-care (01) | LOC: ATC 03:00 | DX: E86.0 Dehydration (principal) | CPT/HCPCS: 96360; 96361; J1642; J7120 ==

== ENCOUNTER 2022-09-17 02:22 | Day surgery (SDC) | payer MEDICARE, OTHER | END 2022-09-17 11:59 | disposition home or self-care (01) | LOC: ATC 02:22 | DX: E86.0 Dehydration (principal); R55 Syncope and collapse; I10 Essential (primary) hypertension; F32.9 Major depressive disorder, single episode, unspecified; R19.7 Diarrhea, unspecified | CPT/HCPCS: J1642; J7120 ==

== ENCOUNTER 2022-09-20 02:00 | Day surgery (SDC) | payer MEDICARE, OTHER | END 2022-09-20 16:05 | disposition home or self-care (01) | LOC: ATC 02:00 | DX: R55 Syncope and collapse (principal); R19.7 Diarrhea, unspecified; I10 Essential (primary) hypertension; F32.A Depression, unspecified | CPT/HCPCS: J1642; J7120 ==

== ENCOUNTER 2022-09-22 04:41 | Day surgery (SDC) | payer MEDICARE, OTHER | END 2022-09-22 11:55 | disposition home or self-care (01) | LOC: ATC 04:41 | DX: E86.0 Dehydration (principal); I10 Essential (primary) hypertension; G43.909 Migraine, unspecified, not intractable, without status migrainosus | CPT/HCPCS: 96360; 96361; J1642; J7120 ==

== ENCOUNTER 2022-09-24 02:22 | Day surgery (SDC) | payer MEDICARE, OTHER | END 2022-09-24 12:05 | disposition home or self-care (01) | LOC: ATC 02:22 | DX: E86.0 Dehydration (principal) | CPT/HCPCS: J1642; J7120 ==

== ENCOUNTER 2022-09-29 01:25 | Day surgery (SDC) | payer MEDICARE, OTHER | END 2022-09-29 11:32 | disposition home or self-care (01) | LOC: ATC 01:25 | DX: E86.0 Dehydration (principal); I10 Essential (primary) hypertension | CPT/HCPCS: J1642; J7120 ==

== ENCOUNTER 2022-10-01 01:51 | Day surgery (SDC) | payer MEDICARE, OTHER | END 2022-10-01 11:25 | disposition home or self-care (01) | LOC: ATC 01:51 | DX: E86.0 Dehydration (principal); I10 Essential (primary) hypertension; G43.909 Migraine, unspecified, not intractable, without status migrainosus; M19.90 Unspecified osteoarthritis, unspecified site; R55 Syncope and collapse; F32.9 Major depressive disorder, single episode, unspecified; R19.7 Diarrhea, unspecified | CPT/HCPCS: J1642; J7120 ==

== ENCOUNTER 2022-10-08 01:28 | Day surgery (SDC) | payer MEDICARE, OTHER ==
[2022-10-08] MEDS ORDERED: AZIT500 PO (09:00)
== END 2022-10-08 11:05 | disposition home or self-care (01) ==
LOC: ATC 01:28
DX: E86.0 Dehydration (principal)
CPT/HCPCS: J1642; J7120

== ENCOUNTER 2022-10-13 00:27 | Day surgery (SDC) | payer MEDICARE, OTHER ==
[~2022-10-13 00:27] MED LIST changes: +AZIT500 PO
[2022-10-13 09:58] LABS: BASOPHILS ABSOLUTE AUTO 0.06 K/mm3 (0.00-0.23); BASOPHILS PERCENT AUTO 1 % (0-2); EOSINOPHILS ABSOLUTE AUTO 0.42 K/mm3 (0.00-0.68); EOSINOPHILS PERCENT AUTO 6 % (0-6); Hematocrit 41.5 % (33.0-51.0); Hemoglobin 13.8 g/dL (11.5-16.0); IMMATURE GRAN ABSOLUTE AUTO 0.01 K/mm3 (0.00-0.10); IMMATURE GRAN PERCENT AUTO 0 % (0-1); LYMPHOCYTES ABSOLUTE AUTO 2.25 K/mm3 (0.84-5.20); LYMPHOCYTES PERCENT AUTO 34 % (21-46); MONOCYTES ABSOLUTE AUTO 0.47 K/mm3 (0.16-1.47); MONOCYTES PERCENT AUTO 7 % (4-13); Mean Corpuscular HGB 30.2 pg (26.0-34.0); Mean Corpuscular HGB Conc 33.3 g/dL (31.5-36.5); Mean Corpuscular Volume 91 fL (80-100); NEUTROPHILS ABSOLUTE AUTO 3.45 K/mm3 (1.96-9.15); NEUTROPHILS PERCENT AUTO 52 % (41-73); Platelet Count 365 K/mm3 (150-400); RDW Coefficient Variation 13.2 % (11.7-14.2); RDW Standard Deviation 43.7 fL (35.1-46.3); Red Blood Cell Count 4.57 M/mm3 (3.80-5.20); White Blood Cell Count 6.66 K/mm3 (4.00-11.30)
[2022-10-13 10:01] LABS: International Normalized Ratio 1.11; Prothrombin Time Results 11.6 Sec (9.7-11.5)
[2022-10-13 10:32] LABS: Albumin, Blood 3.3 g/dL (3.4-5.0); Albumin/Globulin Ratio 0.9 (0.8-1.8); Bilirubin, Total 0.5 mg/dL (0.1-1.0); Bun/Creatinine Ratio 16.5 (12.0-20.0); Calcium, Blood 8.4 mg/dL (8.5-10.1); Creatinine, Blood 0.91 mg/dL (0.40-1.00); Globulin, Blood 3.5 g/dL (2.2-4.0); Potassium, Blood 3.8 mmol/L (3.5-5.5); Total Protein, Blood 6.8 g/dL (6.4-8.2)
== END 2022-10-13 11:15 | disposition home or self-care (01) ==
LOC: ATC 00:27
PROVIDERS: Internal Medicine Gastroenterology
DX: R94.5 Abnormal results of liver function studies (principal)
CPT/HCPCS: 80053; 85025; 85610; J1642; J7120

== ENCOUNTER 2022-10-15 00:31 | Day surgery (SDC) | payer MEDICARE, OTHER | END 2022-10-15 11:02 | disposition home or self-care (01) | LOC: ATC 00:31 | DX: R94.5 Abnormal results of liver function studies (principal) | CPT/HCPCS: J1642; J7120 ==

== ENCOUNTER 2022-10-17 00:29 | Day surgery (SDC) | payer MEDICARE, OTHER | END 2022-10-17 11:00 | disposition home or self-care (01) | LOC: ATC 00:29 | DX: R94.5 Abnormal results of liver function studies (principal) | CPT/HCPCS: J1642; J7120 ==

== ENCOUNTER 2022-10-22 00:20 | Day surgery (SDC) | payer MEDICARE, OTHER | END 2022-10-22 10:56 | disposition home or self-care (01) | LOC: ATC 00:20 | DX: R94.5 Abnormal results of liver function studies (principal) | CPT/HCPCS: J1642; J7120 ==

== ENCOUNTER 2022-10-25 00:07 | Day surgery (SDC) | payer MEDICARE, OTHER ==
--- NOTE | 2022-10-25 11:35 | NUR ---
2nd L IVF NOT COMPLETED DUE TO PT NEEDING TO LEAVE DUE TO AN APPOINTMENT.
== END 2022-10-25 11:35 | disposition home or self-care (01) ==
LOC: ATC 00:07
DX: R94.5 Abnormal results of liver function studies (principal); F32.A Depression, unspecified; Z98.84 Bariatric surgery status
CPT/HCPCS: J1642; J7120

== ENCOUNTER 2022-10-27 00:42 | Day surgery (SDC) | payer MEDICARE, OTHER | END 2022-10-27 10:35 | disposition home or self-care (01) | LOC: ATC 00:42 | DX: R94.5 Abnormal results of liver function studies (principal); Z98.84 Bariatric surgery status | CPT/HCPCS: J1642; J7120 ==

== ENCOUNTER 2022-11-01 01:08 | Day surgery (SDC) | payer MEDICARE, OTHER ==
[2022-11-01] MEDS ORDERED: CEFD300 PO (12:04)
[2022-11-01] MEDS ORDERED: Doxycycline Mo100 M1 (12:04)
== END 2022-11-01 12:12 | disposition home or self-care (01) ==
LOC: ATC 01:08
DX: R94.5 Abnormal results of liver function studies (principal); Z98.84 Bariatric surgery status
CPT/HCPCS: 96360; 96361; J1642; J7120

== ENCOUNTER 2022-11-03 00:31 | Day surgery (SDC) | payer MEDICARE, OTHER ==
[~2022-11-03 00:31] MED LIST changes: +CEFD300 PO; +Doxycycline Mo100 M1
== END 2022-11-03 12:00 | disposition home or self-care (01) ==
LOC: ATC 00:31
DX: R94.5 Abnormal results of liver function studies (principal); Z98.84 Bariatric surgery status; F32.A Depression, unspecified
CPT/HCPCS: 96360; 96361; J1642; J7120

== ENCOUNTER 2022-11-15 07:34 | Day surgery (SDC) | payer MEDICARE, OTHER | END 2022-11-15 11:51 | disposition home or self-care (01) | LOC: ATC 07:34 | DX: E86.0 Dehydration (principal); F32.9 Major depressive disorder, single episode, unspecified | CPT/HCPCS: 96360; 96361; J1642; J7120 ==

== ENCOUNTER 2022-11-19 01:34 | Day surgery (SDC) | payer MEDICARE, OTHER | END 2022-11-19 12:00 | disposition home or self-care (01) | LOC: ATC 01:34 | DX: E86.0 Dehydration (principal); K52.9 Noninfective gastroenteritis and colitis, unspecified; F32.A Depression, unspecified | CPT/HCPCS: 96360; 96361; J1642; J7120 ==

== ENCOUNTER 2022-11-23 01:51 | Day surgery (SDC) | payer MEDICARE, OTHER ==
[2022-11-23] MEDS ORDERED: DOXE10 PO (09:52)
== END 2022-11-23 11:16 | disposition home or self-care (01) ==
LOC: ATC 01:51
DX: E86.0 Dehydration (principal); Z98.84 Bariatric surgery status
CPT/HCPCS: 96360; 96361; J1642; J7120

== ENCOUNTER 2022-11-26 02:35 | Day surgery (SDC) | payer MEDICARE, OTHER ==
[~2022-11-26 02:35] MED LIST changes: +DOXE10 PO
== END 2022-11-26 11:05 | disposition home or self-care (01) ==
LOC: ATC 02:35
DX: E86.0 Dehydration (principal); F32.A Depression, unspecified
CPT/HCPCS: 96360; 96361; J1642; J7120

== ENCOUNTER 2022-11-29 00:20 | Day surgery (SDC) | payer MEDICARE, OTHER | END 2022-11-29 11:07 | disposition home or self-care (01) | LOC: ATC 00:20 | DX: E86.0 Dehydration (principal); Z98.84 Bariatric surgery status | CPT/HCPCS: J1642; J7120 ==

== ENCOUNTER 2022-12-03 01:43 | Day surgery (SDC) | payer MEDICARE, OTHER | END 2022-12-03 11:41 | disposition home or self-care (01) | LOC: ATC 01:43 | DX: E86.0 Dehydration (principal) | CPT/HCPCS: 96360; 96361; J1642; J7120 ==

== ENCOUNTER 2022-12-08 02:28 | Day surgery (SDC) | payer MEDICARE, OTHER | END 2022-12-08 09:48 | disposition home or self-care (01) | LOC: ATC 02:28 | DX: E86.0 Dehydration (principal); F32.A Depression, unspecified | CPT/HCPCS: 96360; 96361; J1642; J7120 ==

== ENCOUNTER 2022-12-19 00:04 | Day surgery (SDC) | payer MEDICARE, OTHER ==
[2022-12-19 09:00] VITALS: BP 127/61
== END 2022-12-19 11:05 | disposition home or self-care (01) ==
LOC: ATC 00:04
DX: E86.0 Dehydration (principal)
CPT/HCPCS: 96360; 96361; J1642; J7120

== ENCOUNTER 2022-12-22 01:23 | Day surgery (SDC) | payer MEDICARE, OTHER ==
[2022-12-22 09:30] VITALS: BP 149/68
== END 2022-12-22 11:38 | disposition home or self-care (01) ==
LOC: ATC 01:23
DX: E86.0 Dehydration (principal); F32.A Depression, unspecified
CPT/HCPCS: 96360; 96361; J1642; J7120

== ENCOUNTER 2022-12-24 00:36 | Day surgery (SDC) | payer MEDICARE, OTHER ==
[2022-12-24 15:09] LABS: Free Thyroxine 0.96 ng/dL (0.70-1.60); Thyroid Stimulating Hormone 2.18 uIU/mL (0.360-4.800); Triiodothyronine, Free 2.54 pg/mL (2.18-3.98)
== END 2022-12-24 16:27 | disposition home or self-care (01) ==
LOC: ATC 00:36
PROVIDERS: Internal Medicine Endocrinology, Diabetes & Metabolism
DX: E86.0 Dehydration (principal); I10 Essential (primary) hypertension; K21.9 Gastro-esophageal reflux disease without esophagitis; E03.9 Hypothyroidism, unspecified
CPT/HCPCS: 84439; 84443; 84481; 96360; 96361; J1642; J7120

== ENCOUNTER 2022-12-29 02:39 | Day surgery (SDC) | payer MEDICARE, OTHER ==
[2022-12-29 15:00] VITALS: BP 122/90
== END 2022-12-29 17:38 | disposition home or self-care (01) ==
LOC: ATC 02:39
DX: E86.0 Dehydration (principal)
CPT/HCPCS: 96360; 96361; J1642; J7120

== ENCOUNTER 2022-12-31 03:42 | Day surgery (SDC) | payer MEDICARE, OTHER ==
[2022-12-31 08:52] VITALS: BP 135/80
== END 2022-12-31 10:55 | disposition home or self-care (01) ==
LOC: ATC 03:42
DX: E86.0 Dehydration (principal); I10 Essential (primary) hypertension; K21.9 Gastro-esophageal reflux disease without esophagitis; E03.9 Hypothyroidism, unspecified; G43.909 Migraine, unspecified, not intractable, without status migrainosus
CPT/HCPCS: 96360; 96361; J1642; J7120

== ENCOUNTER 2023-01-02 04:09 | Day surgery (SDC) | payer MEDICARE, OTHER ==
[2023-01-02 09:11] VITALS: BP 135/66
== END 2023-01-02 11:13 | disposition home or self-care (01) ==
LOC: ATC 04:09
DX: E86.0 Dehydration (principal); I10 Essential (primary) hypertension; K21.9 Gastro-esophageal reflux disease without esophagitis; E03.9 Hypothyroidism, unspecified; G43.909 Migraine, unspecified, not intractable, without status migrainosus
CPT/HCPCS: 96360; 96361; J1642; J7120

== ENCOUNTER 2023-01-21 03:32 | Day surgery (SDC) | payer MEDICARE, OTHER ==
[2023-01-21 09:43] VITALS: BP 141/71
== END 2023-01-21 11:44 | disposition home or self-care (01) ==
LOC: ATC 03:32
DX: E86.0 Dehydration (principal)
CPT/HCPCS: J1642; J7120

== ENCOUNTER 2023-01-24 00:58 | Day surgery (SDC) | payer MEDICARE, OTHER ==
[2023-01-24 09:24] VITALS: BP 138/63
== END 2023-01-24 11:26 | disposition home or self-care (01) ==
LOC: ATC 00:58
DX: E86.0 Dehydration (principal); F32.A Depression, unspecified; K21.9 Gastro-esophageal reflux disease without esophagitis; I10 Essential (primary) hypertension; M19.90 Unspecified osteoarthritis, unspecified site
CPT/HCPCS: 96360; 96361; J1642; J7120

== ENCOUNTER 2023-01-26 00:31 | Day surgery (SDC) | payer MEDICARE, OTHER ==
[2023-01-26 14:09] VITALS: BP 164/74
== END 2023-01-26 16:15 | disposition home or self-care (01) ==
LOC: ATC 00:31
DX: E86.0 Dehydration (principal); I10 Essential (primary) hypertension
CPT/HCPCS: J1642; J7120

== ENCOUNTER 2023-01-28 02:31 | Day surgery (SDC) | payer MEDICARE, OTHER ==
[2023-01-28 08:55] VITALS: BP 130/62
== END 2023-01-28 11:00 | disposition home or self-care (01) ==
LOC: ATC 02:31
DX: E86.0 Dehydration (principal); I10 Essential (primary) hypertension
CPT/HCPCS: 96360; 96361; J1642; J7120

== ENCOUNTER 2023-01-30 01:43 | Day surgery (SDC) | payer MEDICARE, OTHER ==
[2023-01-30 08:35] VITALS: BP 119/67
== END 2023-01-30 10:48 | disposition home or self-care (01) ==
LOC: ATC 01:43
DX: E86.0 Dehydration (principal); I10 Essential (primary) hypertension; K21.9 Gastro-esophageal reflux disease without esophagitis; E03.9 Hypothyroidism, unspecified; Z90.710 Acquired absence of both cervix and uterus
CPT/HCPCS: J1642; J7120

== ENCOUNTER 2023-02-02 03:27 | Day surgery (SDC) | payer MEDICARE, OTHER ==
[2023-02-02 09:50] VITALS: BP 136/65
== END 2023-02-02 11:58 | disposition home or self-care (01) ==
LOC: ATC 03:27
DX: E86.0 Dehydration (principal); I10 Essential (primary) hypertension; K21.9 Gastro-esophageal reflux disease without esophagitis; E03.9 Hypothyroidism, unspecified
CPT/HCPCS: 96360; 96361; J1642; J7120

== ENCOUNTER 2023-02-04 04:02 | Day surgery (SDC) | payer MEDICARE, OTHER ==
[2023-02-04 09:14] VITALS: BP 159/63
== END 2023-02-04 11:23 | disposition home or self-care (01) ==
LOC: ATC 04:02
DX: E86.0 Dehydration (principal); F32.A Depression, unspecified
CPT/HCPCS: 96360; 96361; J1642; J7120

== ENCOUNTER 2023-02-07 03:25 | Day surgery (SDC) | payer MEDICARE, OTHER ==
[2023-02-07 10:29] VITALS: BP 160/84
== END 2023-02-07 09:29 | disposition home or self-care (01) ==
LOC: ATC 03:25
DX: E86.0 Dehydration (principal); I10 Essential (primary) hypertension
CPT/HCPCS: J1642; J7120

== ENCOUNTER 2023-02-09 04:03 | Day surgery (SDC) | payer MEDICARE, OTHER ==
[2023-02-09 08:56] VITALS: BP 151/74
== END 2023-02-09 10:59 | disposition home or self-care (01) ==
LOC: ATC 04:03
DX: E86.0 Dehydration (principal); I10 Essential (primary) hypertension; K21.9 Gastro-esophageal reflux disease without esophagitis; E03.9 Hypothyroidism, unspecified
CPT/HCPCS: 96360; 96361; J1642; J7120

== ENCOUNTER 2023-02-11 02:49 | Day surgery (SDC) | payer MEDICARE, OTHER ==
[2023-02-11 13:26] VITALS: BP 173/76
== END 2023-02-11 15:31 | disposition home or self-care (01) ==
LOC: ATC 02:49
DX: E86.0 Dehydration (principal); I10 Essential (primary) hypertension
CPT/HCPCS: 96360; 96361; J1642; J7120

== ENCOUNTER 2023-02-14 03:15 | Day surgery (SDC) | payer MEDICARE, OTHER ==
[2023-02-14 09:36] VITALS: BP 128/67
== END 2023-02-14 11:45 | disposition home or self-care (01) ==
LOC: ATC 03:15
DX: E86.0 Dehydration (principal); I10 Essential (primary) hypertension
CPT/HCPCS: 96360; 96361; J1642; J7120

== ENCOUNTER 2023-03-07 01:16 | Day surgery (SDC) | payer MEDICARE, OTHER ==
[2023-03-07 10:33] VITALS: BP 126/67
== END 2023-03-07 10:15 | disposition home or self-care (01) ==
LOC: ATC 01:16
DX: E86.0 Dehydration (principal); I10 Essential (primary) hypertension; K21.9 Gastro-esophageal reflux disease without esophagitis; E03.9 Hypothyroidism, unspecified
CPT/HCPCS: 96360; 96361; J1642; J7120

== ENCOUNTER 2023-03-09 04:45 | Day surgery (SDC) | payer MEDICARE, OTHER ==
[2023-03-09 07:49] VITALS: BP 130/71
== END 2023-03-09 09:53 | disposition home or self-care (01) ==
LOC: ATC 04:45
DX: E86.0 Dehydration (principal)
CPT/HCPCS: 96360; 96361; J1642; J7120

== ENCOUNTER 2023-03-13 03:35 | Day surgery (SDC) | payer MEDICARE, OTHER ==
[2023-03-13 07:40] VITALS: BP 153/72
== END 2023-03-13 09:50 | disposition home or self-care (01) ==
LOC: ATC 03:35
DX: E86.0 Dehydration (principal); F32.A Depression, unspecified
CPT/HCPCS: 96360; 96361; J1642; J7120

== ENCOUNTER 2023-03-15 03:02 | Day surgery (SDC) | payer MEDICARE, OTHER ==
[2023-03-15 07:32] VITALS: BP 171/80
== END 2023-03-15 09:41 | disposition home or self-care (01) ==
LOC: ATC 03:02
DX: E86.0 Dehydration (principal); F32.A Depression, unspecified
CPT/HCPCS: 96360; 96361; J1642; J7120

== ENCOUNTER 2023-03-17 01:03 | Day surgery (SDC) | payer MEDICARE, OTHER ==
[2023-03-17 09:55] VITALS: BP 131/63
== END 2023-03-17 12:00 | disposition home or self-care (01) ==
LOC: ATC 01:03
DX: E86.0 Dehydration (principal); I10 Essential (primary) hypertension; K21.9 Gastro-esophageal reflux disease without esophagitis; E03.9 Hypothyroidism, unspecified
CPT/HCPCS: 96360; 96361; J1642; J7120

== ENCOUNTER 2023-03-21 00:15 | Day surgery (SDC) | payer MEDICARE, OTHER ==
[2023-03-21 07:35] VITALS: BP 130/75
== END 2023-03-21 09:20 | disposition home or self-care (01) ==
LOC: ATC 00:15
DX: E86.0 Dehydration (principal)
CPT/HCPCS: J1642; J7120

== ENCOUNTER 2023-03-30 01:36 | Day surgery (SDC) | payer MEDICARE, OTHER ==
[2023-03-30 07:35] VITALS: BP 179/73
== END 2023-03-30 09:40 | disposition home or self-care (01) ==
LOC: ATC 01:36
DX: E86.0 Dehydration (principal); I10 Essential (primary) hypertension; K21.9 Gastro-esophageal reflux disease without esophagitis; E03.9 Hypothyroidism, unspecified
CPT/HCPCS: 96360; 96361; J1642; J7120

== ENCOUNTER 2023-04-01 03:23 | Day surgery (SDC) | payer MEDICARE, OTHER ==
[2023-04-01 07:41] VITALS: BP 159/71
== END 2023-04-01 09:42 | disposition home or self-care (01) ==
LOC: ATC 03:23
DX: E86.0 Dehydration (principal); E16.2 Hypoglycemia, unspecified; F32.9 Major depressive disorder, single episode, unspecified; E03.9 Hypothyroidism, unspecified; G43.909 Migraine, unspecified, not intractable, without status migrainosus; I10 Essential (primary) hypertension; K21.9 Gastro-esophageal reflux disease without esophagitis; M19.90 Unspecified osteoarthritis, unspecified site; Z98.84 Bariatric surgery status
CPT/HCPCS: 96360; 96361; J1642; J7120

== ENCOUNTER 2023-04-06 02:00 | Day surgery (SDC) | payer MEDICARE, OTHER ==
[2023-04-06 07:44] VITALS: BP 133/71
== END 2023-04-06 09:55 | disposition home or self-care (01) ==
LOC: ATC 02:00
DX: E86.0 Dehydration (principal); I10 Essential (primary) hypertension; K21.9 Gastro-esophageal reflux disease without esophagitis; E03.9 Hypothyroidism, unspecified; G43.909 Migraine, unspecified, not intractable, without status migrainosus
CPT/HCPCS: 96360; 96361; J1642; J7120

== ENCOUNTER 2023-04-09 00:49 | Day surgery (SDC) | payer MEDICARE, OTHER ==
[2023-04-09 08:07] VITALS: BP 135/67
== END 2023-04-09 10:10 | disposition home or self-care (01) ==
LOC: ATC 00:49
DX: E86.0 Dehydration (principal); I10 Essential (primary) hypertension; K21.9 Gastro-esophageal reflux disease without esophagitis; E03.9 Hypothyroidism, unspecified; G43.909 Migraine, unspecified, not intractable, without status migrainosus
CPT/HCPCS: 96360; 96361; J1642; J7120

== ENCOUNTER 2023-04-13 02:32 | Day surgery (SDC) | payer MEDICARE, OTHER ==
[2023-04-13 08:52] VITALS: BP 130/59
== END 2023-04-13 10:58 | disposition home or self-care (01) ==
LOC: ATC 02:32
DX: E86.0 Dehydration (principal); F32.A Depression, unspecified; K21.9 Gastro-esophageal reflux disease without esophagitis; I10 Essential (primary) hypertension; M19.90 Unspecified osteoarthritis, unspecified site
CPT/HCPCS: 96360; 96361; J1642; J7120

== ENCOUNTER 2023-04-15 01:02 | Day surgery (SDC) | payer MEDICARE, OTHER ==
[2023-04-15 09:07] VITALS: BP 130/73
== END 2023-04-15 11:10 | disposition home or self-care (01) ==
LOC: ATC 01:02
DX: E86.0 Dehydration (principal); K52.9 Noninfective gastroenteritis and colitis, unspecified; K91.1 Postgastric surgery syndromes; K21.9 Gastro-esophageal reflux disease without esophagitis; F32.9 Major depressive disorder, single episode, unspecified; E16.2 Hypoglycemia, unspecified; I10 Essential (primary) hypertension; M19.90 Unspecified osteoarthritis, unspecified site; E03.9 Hypothyroidism, unspecified; G43.909 Migraine, unspecified, not intractable, without status migrainosus; Z98.84 Bariatric surgery status
CPT/HCPCS: 96360; 96361; J1642; J7120

== ENCOUNTER 2023-04-18 02:26 | Day surgery (SDC) | payer MEDICARE, OTHER ==
[2023-04-18 10:13] VITALS: BP 121/71
== END 2023-04-18 12:38 | disposition home or self-care (01) ==
LOC: ATC 02:26
DX: E86.0 Dehydration (principal); F32.A Depression, unspecified
CPT/HCPCS: 96360; 96361; J1642; J7120

== ENCOUNTER 2023-04-20 05:45 | Day surgery (SDC) | payer MEDICARE, OTHER ==
[2023-04-20 09:30] VITALS: BP 141/74
--- NOTE | 2023-04-20 11:53 | NUR ---
PT UNDRESSED HER MEDIPORT SITE WHILE HER HEPARIN WAS BEING SCANNED INTO [employer]. RN FLUSHED MEDIPORT PER PROTOCOL, WHILE RN GOT BAND-AID, PT REMOVED HER OWN PABON NEEDLE WITHOUT USING THE SAFE-STEP MECHANISM. PT REPORTED THAT SHE LIKES IT BETTER THAT WAY INSTEAD OF THE RN REMOVING THE PABON NEEDLE.
== END 2023-04-20 11:37 | disposition home or self-care (01) ==
LOC: ATC 05:45
DX: E86.0 Dehydration (principal); F32.A Depression, unspecified
CPT/HCPCS: 96360; 96361; J1642; J7120

== ENCOUNTER 2023-04-25 00:34 | Day surgery (SDC) | payer MEDICARE, OTHER ==
[2023-04-25 09:38] VITALS: BP 141/73
[2023-04-25 11:22] LABS: Free Thyroxine 0.78 ng/dL (0.70-1.60); Thyroid Stimulating Hormone 1.78 uIU/mL (0.360-4.800); Triiodothyronine, Free 1.98 pg/mL (2.18-3.98)
== END 2023-04-25 11:48 | disposition home or self-care (01) ==
LOC: ATC 00:34
PROVIDERS: Internal Medicine Endocrinology, Diabetes & Metabolism
DX: E86.0 Dehydration (principal); F32.A Depression, unspecified
CPT/HCPCS: 84439; 84443; 84481; 96360; 96361; J1642; J7120

== ENCOUNTER → 2023-04-26 | Outpatient (CLI) | payer MEDICARE, OTHER | LOC: LAB SHORT 12:45 → LAB 12:45 | DX: R10.9 Unspecified abdominal pain (principal); G89.29 Other chronic pain; K52.9 Noninfective gastroenteritis and colitis, unspecified | CPT/HCPCS: 82653 ==

== ENCOUNTER 2023-04-27 02:32 | Day surgery (SDC) | payer MEDICARE, OTHER ==
[2023-04-27 13:22] VITALS: BP 159/79
== END 2023-04-27 15:31 | disposition home or self-care (01) ==
LOC: ATC 02:32
DX: E86.0 Dehydration (principal); F32.A Depression, unspecified
CPT/HCPCS: 96360; 96361; J1642; J7120

== ENCOUNTER 2023-04-29 00:15 | Day surgery (SDC) | payer MEDICARE, OTHER ==
[2023-04-29 10:03] VITALS: BP 136/70
== END 2023-04-29 12:09 | disposition home or self-care (01) ==
LOC: ATC 00:15
DX: E86.0 Dehydration (principal); F32.A Depression, unspecified
CPT/HCPCS: 96360; 96361; J1642; J7120

== ENCOUNTER 2023-05-02 01:23 | Day surgery (SDC) | payer MEDICARE, OTHER ==
[2023-05-02 08:56] VITALS: BP 132/59
== END 2023-05-02 11:01 | disposition home or self-care (01) ==
LOC: ATC 01:23
DX: E86.0 Dehydration (principal); I10 Essential (primary) hypertension; K21.9 Gastro-esophageal reflux disease without esophagitis; E03.9 Hypothyroidism, unspecified
CPT/HCPCS: 96360; 96361; J1642; J7120

== ENCOUNTER 2023-05-04 01:22 | Day surgery (SDC) | payer MEDICARE, OTHER ==
[2023-05-04 08:56] VITALS: BP 130/69
== END 2023-05-04 11:00 | disposition home or self-care (01) ==
LOC: ATC 01:22
DX: E86.0 Dehydration (principal); F32.A Depression, unspecified
CPT/HCPCS: 83690; 96360; 96361; J1642; J7120

== ENCOUNTER 2023-05-06 00:41 | Day surgery (SDC) | payer MEDICARE, OTHER ==
[2023-05-06 10:00] VITALS: BP 146/71
== END 2023-05-06 12:07 | disposition home or self-care (01) ==
LOC: ATC 00:41
DX: E86.0 Dehydration (principal); K52.9 Noninfective gastroenteritis and colitis, unspecified; K91.1 Postgastric surgery syndromes; F32.A Depression, unspecified; I10 Essential (primary) hypertension; K21.9 Gastro-esophageal reflux disease without esophagitis; M19.90 Unspecified osteoarthritis, unspecified site; E03.9 Hypothyroidism, unspecified; G43.909 Migraine, unspecified, not intractable, without status migrainosus; Z98.84 Bariatric surgery status
CPT/HCPCS: 96360; 96361; J1642; J7120

== ENCOUNTER 2023-05-10 08:23 | Day surgery (SDC) | payer MEDICARE, OTHER ==
[2023-05-10 09:05] VITALS: BP 124/71
[2023-05-10] MEDS ORDERED: SODIUM CHLORIDE IV (09:16)
== END 2023-05-10 11:05 | disposition home or self-care (01) ==
LOC: ATC 08:23
DX: E86.0 Dehydration (principal); F32.A Depression, unspecified
CPT/HCPCS: 96360; 96361; J1642; J7120

== ENCOUNTER 2023-05-11 00:43 | Day surgery (SDC) | payer MEDICARE, OTHER ==
[~2023-05-11 00:43] MED LIST changes: +SODIUM CHLORIDE IV
[2023-05-11 08:51] VITALS: BP 157/64
== END 2023-05-11 11:10 | disposition home or self-care (01) ==
LOC: ATC 00:43
DX: E86.0 Dehydration (principal); F32.A Depression, unspecified
CPT/HCPCS: 96360; 96361; J1642; J7120

== ENCOUNTER 2023-05-13 01:52 | Day surgery (SDC) | payer MEDICARE, OTHER ==
[2023-05-13 09:21] VITALS: BP 141/65
== END 2023-05-13 11:29 | disposition home or self-care (01) ==
LOC: ATC 01:52
DX: E86.0 Dehydration (principal); F32.9 Major depressive disorder, single episode, unspecified; I10 Essential (primary) hypertension; K21.9 Gastro-esophageal reflux disease without esophagitis; M19.90 Unspecified osteoarthritis, unspecified site; Z98.84 Bariatric surgery status; E03.9 Hypothyroidism, unspecified; G43.909 Migraine, unspecified, not intractable, without status migrainosus
CPT/HCPCS: 96360; 96361; J1642; J7120

== ENCOUNTER 2023-05-16 00:57 | Day surgery (SDC) | payer MEDICARE, OTHER ==
[2023-05-16 09:55] VITALS: BP 137/82
== END 2023-05-16 12:03 | disposition home or self-care (01) ==
LOC: ATC 00:57
DX: E86.0 Dehydration (principal); I10 Essential (primary) hypertension; K21.9 Gastro-esophageal reflux disease without esophagitis; E03.9 Hypothyroidism, unspecified
CPT/HCPCS: 96360; 96361; J1642; J7120

== ENCOUNTER 2023-05-18 04:27 | Day surgery (SDC) | payer MEDICARE, OTHER ==
[2023-05-18 09:15] VITALS: BP 141/73
== END 2023-05-18 11:15 | disposition home or self-care (01) ==
LOC: ATC 04:27
DX: E86.0 Dehydration (principal); I10 Essential (primary) hypertension; K21.9 Gastro-esophageal reflux disease without esophagitis; E03.9 Hypothyroidism, unspecified
CPT/HCPCS: 96360; 96361; J1642; J7120

== ENCOUNTER 2023-05-20 00:21 | Day surgery (SDC) | payer MEDICARE, OTHER ==
[2023-05-20 08:51] VITALS: BP 141/67
== END 2023-05-20 11:00 | disposition home or self-care (01) ==
LOC: ATC 00:21
DX: E86.0 Dehydration (principal); F32.A Depression, unspecified
CPT/HCPCS: 96360; 96361; J1642; J7120

== ENCOUNTER 2023-06-20 02:07 | Day surgery (SDC) | payer MEDICARE, OTHER ==
[~2023-06-20 02:07] MED LIST changes: +ZENPEP DR 10,01 EACH PO; +ZENPEP DR 40,01 EACH PO
[2023-06-20 09:32] VITALS: BP 127/61
== END 2023-06-20 11:40 | disposition home or self-care (01) ==
LOC: ATC 02:07
DX: E86.0 Dehydration (principal); F32.A Depression, unspecified
CPT/HCPCS: 96360; 96361; J1642; J7120

== ENCOUNTER 2023-06-22 05:23 | Day surgery (SDC) | payer MEDICARE, OTHER ==
[2023-06-22 09:20] VITALS: BP 148/68
== END 2023-06-22 11:28 | disposition home or self-care (01) ==
LOC: ATC 05:23
DX: E86.0 Dehydration (principal); F32.A Depression, unspecified
CPT/HCPCS: 96360; 96361; J1642; J7120

== ENCOUNTER 2023-06-24 05:03 | Day surgery (SDC) | payer MEDICARE, OTHER ==
[2023-06-24 09:27] VITALS: BP 143/63
== END 2023-06-24 11:28 | disposition home or self-care (01) ==
LOC: ATC 05:03
DX: E86.0 Dehydration (principal); Z98.84 Bariatric surgery status; F32.9 Major depressive disorder, single episode, unspecified; K21.9 Gastro-esophageal reflux disease without esophagitis; M19.90 Unspecified osteoarthritis, unspecified site; I10 Essential (primary) hypertension; E03.9 Hypothyroidism, unspecified; G43.909 Migraine, unspecified, not intractable, without status migrainosus
CPT/HCPCS: 96360; 96361; J1642; J7120

== ENCOUNTER 2023-06-27 03:08 | Day surgery (SDC) | payer MEDICARE, OTHER ==
[2023-06-27 14:42] VITALS: BP 153/75
== END 2023-06-28 23:02 | disposition home or self-care (01) ==
LOC: ATC 03:08
DX: E86.0 Dehydration (principal); I10 Essential (primary) hypertension; K21.9 Gastro-esophageal reflux disease without esophagitis; E03.9 Hypothyroidism, unspecified
CPT/HCPCS: 96360; 96361; J1642; J7120

== ENCOUNTER 2023-06-29 02:21 | Day surgery (SDC) | payer MEDICARE, OTHER ==
[2023-06-29 13:56] VITALS: BP 144/65
[2023-06-29 17:03] LABS: BASOPHILS ABSOLUTE AUTO 0.04 K/mm3 (0.00-0.23); BASOPHILS PERCENT AUTO 1 % (0-2); EOSINOPHILS ABSOLUTE AUTO 0.77 K/mm3 (0.00-0.68); EOSINOPHILS PERCENT AUTO 10 % (0-6); Hematocrit 34.9 % (33.0-51.0); Hemoglobin 11.5 g/dL (11.5-16.0); IMMATURE GRAN ABSOLUTE AUTO 0.02 K/mm3 (0.00-0.10); IMMATURE GRAN PERCENT AUTO 0 % (0-1); LYMPHOCYTES ABSOLUTE AUTO 2.03 K/mm3 (0.84-5.20); LYMPHOCYTES PERCENT AUTO 27 % (21-46); MONOCYTES ABSOLUTE AUTO 0.69 K/mm3 (0.16-1.47); MONOCYTES PERCENT AUTO 9 % (4-13); Mean Corpuscular HGB 29.9 pg (26.0-34.0); Mean Corpuscular Volume 91 fL (80-100); Mean Platelet Volume 10.3 fL (9.1-12.4); NEUTROPHILS ABSOLUTE AUTO 3.91 K/mm3 (1.96-9.15); NEUTROPHILS PERCENT AUTO 53 % (41-73); Platelet Count 187 K/mm3 (150-400); RDW Coefficient Variation 13.4 % (11.7-14.2); RDW Standard Deviation 44.2 fL (35.1-46.3); Red Blood Cell Count 3.85 M/mm3 (3.80-5.20); White Blood Cell Count 7.46 K/mm3 (4.00-11.30)
[2023-06-29 17:36] LABS: Albumin, Blood 2.9 g/dL (3.4-5.0); Albumin/Globulin Ratio 0.9 (0.8-1.8); Bilirubin, Total 0.2 mg/dL (0.1-1.0); Bun/Creatinine Ratio 7.2 (12.0-20.0); Calcium, Blood 7.2 mg/dL (8.5-10.1); Creatinine, Blood 0.7 mg/dL (0.40-1.00); Globulin, Blood 3.3 g/dL (2.2-4.0); Potassium, Blood 3.6 mmol/L (3.5-5.5); Total Protein, Blood 6.2 g/dL (6.4-8.2)
== END 2023-06-29 16:10 | disposition home or self-care (01) ==
LOC: ATC 02:21
PROVIDERS: Internal Medicine Gastroenterology
DX: E86.0 Dehydration (principal); R79.89 Other specified abnormal findings of blood chemistry; K91.1 Postgastric surgery syndromes; F32.A Depression, unspecified; I10 Essential (primary) hypertension; K21.9 Gastro-esophageal reflux disease without esophagitis; M19.90 Unspecified osteoarthritis, unspecified site; E03.9 Hypothyroidism, unspecified; Z98.84 Bariatric surgery status
CPT/HCPCS: 80053; 82105; 85025; 96360; 96361; J1642; J7120

== ENCOUNTER 2023-07-01 02:49 | Day surgery (SDC) | payer MEDICARE, OTHER ==
[2023-07-01 09:39] VITALS: BP 146/70
== END 2023-07-01 23:42 | disposition home or self-care (01) ==
LOC: ATC 02:49
DX: E86.0 Dehydration (principal); F32.A Depression, unspecified; I10 Essential (primary) hypertension; K21.9 Gastro-esophageal reflux disease without esophagitis; M19.90 Unspecified osteoarthritis, unspecified site; E03.9 Hypothyroidism, unspecified; Z98.84 Bariatric surgery status
CPT/HCPCS: 96360; 96361; J1642; J7120

== ENCOUNTER 2023-07-04 02:08 | Day surgery (SDC) | payer MEDICARE, OTHER ==
[2023-07-04 09:33] VITALS: BP 137/73
== END 2023-07-04 11:40 | disposition home or self-care (01) ==
LOC: ATC 02:08
DX: E86.0 Dehydration (principal); I10 Essential (primary) hypertension; K21.9 Gastro-esophageal reflux disease without esophagitis; E03.9 Hypothyroidism, unspecified
CPT/HCPCS: 96360; 96361; J1642; J7120

== ENCOUNTER 2023-07-08 04:44 | Day surgery (SDC) | payer MEDICARE, OTHER ==
[2023-07-08 09:24] VITALS: BP 120/67
== END 2023-07-08 11:36 | disposition home or self-care (01) ==
LOC: ATC 04:44
DX: E86.0 Dehydration (principal); I10 Essential (primary) hypertension; K21.9 Gastro-esophageal reflux disease without esophagitis; E03.9 Hypothyroidism, unspecified
CPT/HCPCS: 96360; 96361; J1642; J7120

== ENCOUNTER 2023-07-11 02:22 | Day surgery (SDC) | payer MEDICARE, OTHER ==
[2023-07-11 09:24] VITALS: BP 110/63
== END 2023-07-11 11:40 | disposition home or self-care (01) ==
LOC: ATC 02:22
DX: E86.0 Dehydration (principal); F32.A Depression, unspecified
CPT/HCPCS: 96360; 96361; J1642; J7120

== ENCOUNTER 2023-07-13 01:49 | Day surgery (SDC) | payer MEDICARE, OTHER ==
[2023-07-13 09:20] VITALS: BP 108/67
== END 2023-07-13 11:27 | disposition home or self-care (01) ==
LOC: ATC 01:49
DX: E86.0 Dehydration (principal); I10 Essential (primary) hypertension; K21.9 Gastro-esophageal reflux disease without esophagitis; E03.9 Hypothyroidism, unspecified
CPT/HCPCS: 96360; 96361; J1642; J7120

== ENCOUNTER 2023-07-15 01:48 | Day surgery (SDC) | payer MEDICARE, OTHER ==
[2023-07-15 10:21] VITALS: BP 152/86
== END 2023-07-15 12:20 | disposition home or self-care (01) ==
LOC: ATC 01:48
DX: E86.0 Dehydration (principal); F32.A Depression, unspecified
CPT/HCPCS: 96360; 96361; J1642; J7120

== ENCOUNTER 2023-07-18 00:30 | Day surgery (SDC) | payer MEDICARE, OTHER ==
[2023-07-18 09:54] VITALS: BP 137/76
== END 2023-07-18 12:05 | disposition home or self-care (01) ==
LOC: ATC 00:30
DX: E86.0 Dehydration (principal); K91.1 Postgastric surgery syndromes; F32.A Depression, unspecified; I10 Essential (primary) hypertension; K21.9 Gastro-esophageal reflux disease without esophagitis; M19.90 Unspecified osteoarthritis, unspecified site; E03.9 Hypothyroidism, unspecified; G43.909 Migraine, unspecified, not intractable, without status migrainosus; Z98.84 Bariatric surgery status
CPT/HCPCS: 96360; 96361; J1642; J7120

== ENCOUNTER 2023-07-20 06:02 | Day surgery (SDC) | payer MEDICARE, OTHER ==
[2023-07-20 10:10] VITALS: BP 142/61
== END 2023-07-20 12:12 | disposition home or self-care (01) ==
LOC: ATC 06:02
DX: E86.0 Dehydration (principal); F32.A Depression, unspecified
CPT/HCPCS: 96360; 96361; J1642; J7120

== ENCOUNTER 2023-07-22 02:31 | Day surgery (SDC) | payer MEDICARE, OTHER ==
[2023-07-22 09:47] VITALS: BP 166/89
== END 2023-07-22 11:55 | disposition home or self-care (01) ==
LOC: ATC 02:31
DX: E86.0 Dehydration (principal); F32.A Depression, unspecified
CPT/HCPCS: 96360; 96361; J1642; J7120

== ENCOUNTER 2023-07-25 01:57 | Day surgery (SDC) | payer MEDICARE, OTHER ==
[2023-07-25 09:56] VITALS: BP 130/77
== END 2023-07-25 12:05 | disposition home or self-care (01) ==
LOC: ATC 01:57
DX: E86.0 Dehydration (principal); F32.A Depression, unspecified
CPT/HCPCS: 96360; 96361; J1642; J7120

== ENCOUNTER 2023-07-27 02:17 | Day surgery (SDC) | payer MEDICARE, OTHER ==
[2023-07-27 10:06] VITALS: BP 148/81
== END 2023-07-27 12:17 | disposition home or self-care (01) ==
LOC: ATC 02:17
DX: E86.0 Dehydration (principal); K91.1 Postgastric surgery syndromes; I10 Essential (primary) hypertension; K21.9 Gastro-esophageal reflux disease without esophagitis; M19.90 Unspecified osteoarthritis, unspecified site; E03.9 Hypothyroidism, unspecified; G43.909 Migraine, unspecified, not intractable, without status migrainosus; Z98.84 Bariatric surgery status
CPT/HCPCS: 96360; 96361; J1642; J7120

== ENCOUNTER 2023-07-29 08:20 | Day surgery (SDC) | payer MEDICARE, OTHER ==
[2023-07-29 09:00] VITALS: BP 149/109
== END 2023-07-29 11:09 | disposition home or self-care (01) ==
LOC: ATC 08:20
DX: E86.0 Dehydration (principal); I10 Essential (primary) hypertension; K21.9 Gastro-esophageal reflux disease without esophagitis; M19.90 Unspecified osteoarthritis, unspecified site; E03.9 Hypothyroidism, unspecified
CPT/HCPCS: 96360; 96361; J1642; J7120

== ENCOUNTER 2023-08-01 02:56 | Day surgery (SDC) | payer MEDICARE, OTHER ==
[2023-08-01 14:44] VITALS: BP 148/73
== END 2023-08-01 16:55 | disposition home or self-care (01) ==
LOC: ATC 02:56
DX: E86.0 Dehydration (principal); F32.A Depression, unspecified; K21.9 Gastro-esophageal reflux disease without esophagitis; M19.90 Unspecified osteoarthritis, unspecified site
CPT/HCPCS: 96360; 96361; J1642; J7120

== ENCOUNTER 2023-08-03 02:03 | Day surgery (SDC) | payer MEDICARE, OTHER ==
[2023-08-03 08:32] VITALS: BP 146/75
== END 2023-08-03 10:45 | disposition home or self-care (01) ==
LOC: ATC 02:03
DX: E86.0 Dehydration (principal); K91.1 Postgastric surgery syndromes; F32.A Depression, unspecified; I10 Essential (primary) hypertension; K21.9 Gastro-esophageal reflux disease without esophagitis; E03.9 Hypothyroidism, unspecified; G43.909 Migraine, unspecified, not intractable, without status migrainosus; Z98.84 Bariatric surgery status
CPT/HCPCS: 96360; 96361; J1642; J7120

== ENCOUNTER 2023-08-05 03:59 | Day surgery (SDC) | payer MEDICARE, OTHER ==
[2023-08-05 09:00] VITALS: BP 156/74
--- NOTE | 2023-08-05 09:24 | NUR ---
PT REQUESTS TO HAVE LABS DRAWN CLOSER TO HER MD APPOINTMENT ON 09/08/23. PT STATES TO DRAW LABS ON 08/26/23.
== END 2023-08-05 11:06 | disposition home or self-care (01) ==
LOC: ATC 03:59
DX: E86.0 Dehydration (principal); I10 Essential (primary) hypertension; K21.9 Gastro-esophageal reflux disease without esophagitis; M19.90 Unspecified osteoarthritis, unspecified site; E03.9 Hypothyroidism, unspecified; Z98.84 Bariatric surgery status
CPT/HCPCS: 96360; 96361; J1642; J7120

== ENCOUNTER 2023-08-08 03:46 | Day surgery (SDC) | payer MEDICARE, OTHER ==
[2023-08-08 14:58] VITALS: BP 150/64
== END 2023-08-08 17:07 | disposition home or self-care (01) ==
LOC: ATC 03:46
DX: E86.0 Dehydration (principal); I10 Essential (primary) hypertension; K21.9 Gastro-esophageal reflux disease without esophagitis; M19.90 Unspecified osteoarthritis, unspecified site; E03.9 Hypothyroidism, unspecified; K91.1 Postgastric surgery syndromes; Z98.84 Bariatric surgery status
CPT/HCPCS: 96360; 96361; J1642; J7120

== ENCOUNTER 2023-08-10 02:00 | Day surgery (SDC) | payer MEDICARE, OTHER ==
[2023-08-10 15:08] VITALS: BP 151/78
== END 2023-08-10 17:10 | disposition home or self-care (01) ==
LOC: ATC 02:00
DX: E86.0 Dehydration (principal); I10 Essential (primary) hypertension; K21.9 Gastro-esophageal reflux disease without esophagitis; E03.8 Other specified hypothyroidism; Z79.899 Other long term (current) drug therapy
CPT/HCPCS: 96360; 96361; J1642; J7120

== ENCOUNTER 2023-08-12 03:10 | Day surgery (SDC) | payer MEDICARE, OTHER ==
[2023-08-12 10:57] VITALS: BP 169/84
== END 2023-08-12 10:58 | disposition home or self-care (01) ==
LOC: ATC 03:10
DX: E86.0 Dehydration (principal); E03.9 Hypothyroidism, unspecified; I10 Essential (primary) hypertension; K21.9 Gastro-esophageal reflux disease without esophagitis; K91.1 Postgastric surgery syndromes; Z98.84 Bariatric surgery status
CPT/HCPCS: 96360; 96361; J1642; J7120

== ENCOUNTER 2023-08-15 03:33 | Day surgery (SDC) | payer MEDICARE, OTHER ==
[2023-08-15 14:14] VITALS: BP 134/68
== END 2023-08-15 16:20 | disposition home or self-care (01) ==
LOC: ATC 03:33
DX: E86.0 Dehydration (principal); E03.9 Hypothyroidism, unspecified; I10 Essential (primary) hypertension; K21.9 Gastro-esophageal reflux disease without esophagitis; M19.90 Unspecified osteoarthritis, unspecified site; Z98.84 Bariatric surgery status
CPT/HCPCS: 96360; 96361; J1642; J7120

== ENCOUNTER 2023-08-16 04:19 | Day surgery (SDC) | payer MEDICARE, OTHER ==
[2023-08-16 15:34] VITALS: BP 144/71
== END 2023-08-16 17:40 | disposition home or self-care (01) ==
LOC: ATC 04:19
DX: E86.0 Dehydration (principal); E03.9 Hypothyroidism, unspecified; I10 Essential (primary) hypertension; K21.9 Gastro-esophageal reflux disease without esophagitis; K91.1 Postgastric surgery syndromes; Z98.84 Bariatric surgery status
CPT/HCPCS: 96360; 96361; J1642; J7120

== ENCOUNTER 2023-08-24 00:50 | Day surgery (SDC) | payer MEDICARE, OTHER ==
[2023-08-24 14:25] VITALS: BP 162/57
== END 2023-08-24 16:25 | disposition home or self-care (01) ==
LOC: ATC 00:50
DX: E86.0 Dehydration (principal); E03.9 Hypothyroidism, unspecified; K21.9 Gastro-esophageal reflux disease without esophagitis; I10 Essential (primary) hypertension; Z98.84 Bariatric surgery status
CPT/HCPCS: 96360; 96361; J1642; J7120

== ENCOUNTER 2023-08-26 03:05 | Day surgery (SDC) | payer MEDICARE, OTHER ==
[2023-08-26 08:56] VITALS: BP 126/64
[2023-08-26 09:59] LABS: Free Thyroxine 1.23 ng/dL (0.70-1.60)
[2023-08-26 10:03] LABS: Thyroid Stimulating Hormone 0.211 uIU/mL (0.360-4.800); Triiodothyronine, Free 2.46 pg/mL (2.18-3.98)
[2023-08-28 00:56] LABS: ESTRADIOL BY IMMUNOASSAY <20 pg/mL
== END 2023-08-26 11:08 | disposition home or self-care (01) ==
LOC: ATC 03:05
PROVIDERS: Internal Medicine Endocrinology, Diabetes & Metabolism
DX: E86.0 Dehydration (principal); E03.9 Hypothyroidism, unspecified; K21.9 Gastro-esophageal reflux disease without esophagitis
CPT/HCPCS: 82670; 84439; 84443; 84481; 96360; 96361; J1642; J7120

== ENCOUNTER 2023-08-28 04:47 | Day surgery (SDC) | payer MEDICARE, OTHER ==
[2023-08-28 09:02] VITALS: BP 145/67
== END 2023-08-28 11:05 | disposition home or self-care (01) ==
LOC: ATC 04:47
DX: E86.0 Dehydration (principal); I10 Essential (primary) hypertension; K21.9 Gastro-esophageal reflux disease without esophagitis; E03.8 Other specified hypothyroidism; K52.9 Noninfective gastroenteritis and colitis, unspecified; Z79.890 Hormone replacement therapy; Z79.899 Other long term (current) drug therapy
CPT/HCPCS: 96360; 96361; J1642; J7120

== ENCOUNTER 2023-08-31 04:48 | Day surgery (SDC) | payer MEDICARE, OTHER ==
[2023-08-31 09:11] VITALS: BP 130/62
== END 2023-08-31 11:20 | disposition home or self-care (01) ==
LOC: ATC 04:48
DX: E86.0 Dehydration (principal); I10 Essential (primary) hypertension; K21.9 Gastro-esophageal reflux disease without esophagitis; E03.9 Hypothyroidism, unspecified
CPT/HCPCS: 96360; 96361; J1642; J7120

== ENCOUNTER 2023-09-02 01:00 | Day surgery (SDC) | payer MEDICARE, OTHER ==
[2023-09-02 08:45] VITALS: BP 145/81
[2023-09-02 08:53] VITALS: BP 145/81
== END 2023-09-02 10:59 | disposition home or self-care (01) ==
LOC: ATC 01:00
DX: E86.0 Dehydration (principal); I10 Essential (primary) hypertension; K21.9 Gastro-esophageal reflux disease without esophagitis; E03.9 Hypothyroidism, unspecified; K91.1 Postgastric surgery syndromes; Z98.84 Bariatric surgery status
CPT/HCPCS: 96360; 96361; J1642; J7120

== ENCOUNTER 2023-09-07 03:35 | Day surgery (SDC) | payer MEDICARE, OTHER ==
[2023-09-07 10:00] VITALS: BP 149/69
== END 2023-09-07 12:02 | disposition home or self-care (01) ==
LOC: ATC 03:35
DX: E86.0 Dehydration (principal); E03.9 Hypothyroidism, unspecified; I10 Essential (primary) hypertension; K21.9 Gastro-esophageal reflux disease without esophagitis; Z98.84 Bariatric surgery status
CPT/HCPCS: 96360; 96361; J1642; J7120

== ENCOUNTER 2023-09-09 03:12 | Day surgery (SDC) | payer MEDICARE, OTHER ==
[2023-09-09 14:50] VITALS: BP 162/85
== END 2023-09-09 16:57 | disposition home or self-care (01) ==
LOC: ATC 03:12
DX: E86.0 Dehydration (principal); E03.9 Hypothyroidism, unspecified; I10 Essential (primary) hypertension; K21.9 Gastro-esophageal reflux disease without esophagitis; M19.90 Unspecified osteoarthritis, unspecified site; K91.1 Postgastric surgery syndromes; Z98.84 Bariatric surgery status
CPT/HCPCS: 96360; 96361; J1642; J7120

== ENCOUNTER 2023-09-12 04:26 | Day surgery (SDC) | payer MEDICARE, OTHER ==
[2023-09-12 10:15] VITALS: BP 141/72
== END 2023-09-12 12:18 | disposition home or self-care (01) ==
LOC: ATC 04:26
DX: E86.0 Dehydration (principal); I10 Essential (primary) hypertension; K21.9 Gastro-esophageal reflux disease without esophagitis; E03.9 Hypothyroidism, unspecified
CPT/HCPCS: 96360; 96361; J1642; J7120

== ENCOUNTER 2023-09-14 01:04 | Day surgery (SDC) | payer MEDICARE, OTHER ==
[2023-09-14 08:00] VITALS: BP 157/75
== END 2023-09-14 10:18 | disposition home or self-care (01) ==
LOC: ATC 01:04
DX: E86.0 Dehydration (principal); E03.9 Hypothyroidism, unspecified; I10 Essential (primary) hypertension; K21.9 Gastro-esophageal reflux disease without esophagitis; M19.90 Unspecified osteoarthritis, unspecified site; K31.89 Other diseases of stomach and duodenum; Z98.84 Bariatric surgery status
CPT/HCPCS: 96360; 96361; J1642; J7120

== ENCOUNTER 2023-09-16 02:15 | Day surgery (SDC) | payer MEDICARE, OTHER ==
[2023-09-16 10:20] VITALS: BP 137/60
== END 2023-09-16 12:24 | disposition home or self-care (01) ==
LOC: ATC 02:15
DX: E86.0 Dehydration (principal); K21.9 Gastro-esophageal reflux disease without esophagitis; I10 Essential (primary) hypertension
CPT/HCPCS: 96360; 96361; J1642; J7120

== ENCOUNTER 2023-09-19 03:19 | Day surgery (SDC) | payer MEDICARE, OTHER ==
[2023-09-19 15:02] VITALS: BP 131/72
== END 2023-09-19 17:05 | disposition home or self-care (01) ==
LOC: ATC 03:19
DX: E86.0 Dehydration (principal); I10 Essential (primary) hypertension; K21.9 Gastro-esophageal reflux disease without esophagitis; E03.9 Hypothyroidism, unspecified; Z79.890 Hormone replacement therapy; Z79.899 Other long term (current) drug therapy
CPT/HCPCS: 96360; 96361; J1642; J7120

== ENCOUNTER 2023-09-21 02:36 | Day surgery (SDC) | payer MEDICARE, OTHER ==
[2023-09-21 09:01] VITALS: BP 136/72
== END 2023-09-21 10:52 | disposition home or self-care (01) ==
LOC: ATC 02:36
DX: E86.0 Dehydration (principal); I10 Essential (primary) hypertension; K21.9 Gastro-esophageal reflux disease without esophagitis; E03.9 Hypothyroidism, unspecified
CPT/HCPCS: 36591; 82607; 82746; 96360; 96361; J1642; J7120

== ENCOUNTER 2023-09-23 01:08 | Day surgery (SDC) | payer MEDICARE, OTHER ==
[2023-09-23 09:22] VITALS: BP 139/76
== END 2023-09-23 11:23 | disposition home or self-care (01) ==
LOC: ATC 01:08
DX: E86.0 Dehydration (principal); I10 Essential (primary) hypertension; K21.9 Gastro-esophageal reflux disease without esophagitis; E03.9 Hypothyroidism, unspecified; M19.90 Unspecified osteoarthritis, unspecified site; K52.9 Noninfective gastroenteritis and colitis, unspecified
CPT/HCPCS: 96360; 96361; J1642; J7120

== ENCOUNTER 2023-09-26 00:57 | Day surgery (SDC) | payer MEDICARE, OTHER ==
[2023-09-26 10:06] VITALS: BP 128/66
[2023-09-30] MEDS ORDERED: TRAZ50 PO (08:55)
[2023-09-30] MEDS ORDERED: CREON DR 6,0001 EACH PO (08:56)
== END 2023-09-26 12:17 | disposition home or self-care (01) ==
LOC: ATC 00:57
DX: E86.0 Dehydration (principal); E03.9 Hypothyroidism, unspecified; I10 Essential (primary) hypertension; K21.9 Gastro-esophageal reflux disease without esophagitis; M19.90 Unspecified osteoarthritis, unspecified site; K52.9 Noninfective gastroenteritis and colitis, unspecified; K91.1 Postgastric surgery syndromes; Z98.84 Bariatric surgery status
CPT/HCPCS: 96360; 96361; J1642; J7120

== ENCOUNTER 2023-09-28 02:46 | Day surgery (SDC) | payer MEDICARE, OTHER ==
[2023-09-28 09:03] VITALS: BP 147/77
[2023-09-30] MEDS ORDERED: TRAZ50 PO (08:55)
[2023-09-30] MEDS ORDERED: CREON DR 6,0001 EACH PO (08:56)
== END 2023-09-28 11:10 | disposition home or self-care (01) ==
LOC: ATC 02:46
DX: E86.0 Dehydration (principal); K52.9 Noninfective gastroenteritis and colitis, unspecified; I10 Essential (primary) hypertension; K21.9 Gastro-esophageal reflux disease without esophagitis; E03.8 Other specified hypothyroidism; Z79.890 Hormone replacement therapy; Z79.899 Other long term (current) drug therapy
CPT/HCPCS: 96360; 96361; J1642; J7120

== ENCOUNTER 2023-10-03 02:45 | Day surgery (SDC) | payer MEDICARE, OTHER ==
[~2023-10-03 02:45] MED LIST changes: +CREON DR 6,0001 EACH PO; +TRAZ50 PO
[2023-10-03 08:50] VITALS: BP 117/71
== END 2023-10-03 11:03 | disposition home or self-care (01) ==
LOC: ATC 02:45
DX: E86.0 Dehydration (principal); I10 Essential (primary) hypertension; K21.9 Gastro-esophageal reflux disease without esophagitis; M19.90 Unspecified osteoarthritis, unspecified site; E03.9 Hypothyroidism, unspecified; K52.9 Noninfective gastroenteritis and colitis, unspecified
CPT/HCPCS: 96360; 96361; J1642; J7120

== ENCOUNTER 2023-10-05 02:44 | Day surgery (SDC) | payer MEDICARE, OTHER ==
[2023-10-05 09:45] VITALS: BP 157/73
== END 2023-10-05 11:58 | disposition home or self-care (01) ==
LOC: ATC 02:44
DX: E86.0 Dehydration (principal); E03.9 Hypothyroidism, unspecified; I10 Essential (primary) hypertension; K21.9 Gastro-esophageal reflux disease without esophagitis; M19.90 Unspecified osteoarthritis, unspecified site; K91.1 Postgastric surgery syndromes; Z98.84 Bariatric surgery status
CPT/HCPCS: 96360; 96361; J1642; J7120

== ENCOUNTER 2023-10-07 01:36 | Day surgery (SDC) | payer MEDICARE, OTHER ==
[2023-10-07 15:08] VITALS: BP 162/91
== END 2023-10-07 22:54 | disposition home or self-care (01) ==
LOC: ATC 01:36
DX: E86.0 Dehydration (principal); I10 Essential (primary) hypertension; K21.9 Gastro-esophageal reflux disease without esophagitis; E03.9 Hypothyroidism, unspecified; Z98.84 Bariatric surgery status
CPT/HCPCS: 96360; 96361; J1642; J7120

== ENCOUNTER 2023-10-10 01:55 | Day surgery (SDC) | payer MEDICARE, OTHER ==
[2023-10-10] MEDS ORDERED: Lactated Ringer's 1,000 ML IV SCH ×2 (07:00→08:55)
[2023-10-10 09:00] VITALS: BP 160/74
== END 2023-10-10 11:08 | disposition home or self-care (01) ==
LOC: ATC 01:55
DX: E86.0 Dehydration (principal); I10 Essential (primary) hypertension; K21.9 Gastro-esophageal reflux disease without esophagitis; E03.9 Hypothyroidism, unspecified; M19.90 Unspecified osteoarthritis, unspecified site; K52.9 Noninfective gastroenteritis and colitis, unspecified
CPT/HCPCS: 96360; 96361; J1642; J7120

== ENCOUNTER 2023-10-14 00:44 | Day surgery (SDC) | payer MEDICARE, OTHER ==
[2023-10-14] MEDS ORDERED: Lactated Ringer's 2,000 ML IV SCH (06:55)
[2023-10-14 14:02] VITALS: BP 158/77
== END 2023-10-14 16:11 | disposition home or self-care (01) ==
LOC: ATC 00:44
DX: E86.0 Dehydration (principal); I10 Essential (primary) hypertension; K21.9 Gastro-esophageal reflux disease without esophagitis; E03.9 Hypothyroidism, unspecified; K52.9 Noninfective gastroenteritis and colitis, unspecified; Z98.84 Bariatric surgery status
CPT/HCPCS: 96360; 96361; J1642; J7120

== ENCOUNTER 2023-10-17 00:32 | Day surgery (SDC) | payer MEDICARE, OTHER ==
[2023-10-17] MEDS ORDERED: Lactated Ringer's 1,000 ML IV SCH (07:10)
[2023-10-17 08:59] VITALS: BP 144/84
== END 2023-10-17 11:08 | disposition home or self-care (01) ==
LOC: ATC 00:32
DX: E86.0 Dehydration (principal); I10 Essential (primary) hypertension; K21.9 Gastro-esophageal reflux disease without esophagitis; M19.90 Unspecified osteoarthritis, unspecified site; E03.9 Hypothyroidism, unspecified; K52.9 Noninfective gastroenteritis and colitis, unspecified; Z98.84 Bariatric surgery status
CPT/HCPCS: 96360; 96361; J1642; J7120

== ENCOUNTER 2023-10-19 00:04 | Day surgery (SDC) | payer MEDICARE, OTHER ==
[2023-10-19] MEDS ORDERED: Lactated Ringer's 2,000 ML IV SCH (07:00)
[2023-10-19 14:03] VITALS: BP 144/92
== END 2023-10-19 16:08 | disposition home or self-care (01) ==
LOC: ATC 00:04
DX: E86.0 Dehydration (principal); I10 Essential (primary) hypertension; K21.9 Gastro-esophageal reflux disease without esophagitis; E03.9 Hypothyroidism, unspecified; Z98.84 Bariatric surgery status
CPT/HCPCS: 96360; 96361; J1642; J7120

== ENCOUNTER 2023-10-21 00:58 | Day surgery (SDC) | payer MEDICARE, OTHER ==
[2023-10-21] MEDS ORDERED: Lactated Ringer's 1,000 ML IV SCH ×2 (07:05→13:00)
[2023-10-21 14:52] VITALS: BP 109/49
== END 2023-10-21 16:55 | disposition home or self-care (01) ==
LOC: ATC 00:58
DX: E86.0 Dehydration (principal); K21.9 Gastro-esophageal reflux disease without esophagitis; E03.9 Hypothyroidism, unspecified; K52.9 Noninfective gastroenteritis and colitis, unspecified; I10 Essential (primary) hypertension
CPT/HCPCS: 96360; 96361; J1642; J7120

== ENCOUNTER 2023-10-24 07:40 | Day surgery (SDC) | payer MEDICARE, OTHER ==
[~2023-10-24 07:40] MED LIST changes: +Lactated Ringer's 1,000 ML IV SCH
[2023-10-24 08:55] VITALS: BP 118/67
== END 2023-10-24 11:02 | disposition home or self-care (01) ==
LOC: ATC 07:40
DX: E86.0 Dehydration (principal); E03.9 Hypothyroidism, unspecified; I10 Essential (primary) hypertension; K21.9 Gastro-esophageal reflux disease without esophagitis; M19.90 Unspecified osteoarthritis, unspecified site; K52.9 Noninfective gastroenteritis and colitis, unspecified; Z98.84 Bariatric surgery status
CPT/HCPCS: 96360; 96361; J1642; J7120

== ENCOUNTER 2023-10-25 03:22 | Day surgery (SDC) | payer MEDICARE, OTHER ==
[~2023-10-25 03:22] MED LIST changes: -Lactated Ringer's 1,000 ML IV SCH
[2023-10-25] MEDS ORDERED: Lactated Ringer's 1,000 ML IV SCH (07:15)
[2023-10-25 14:37] VITALS: BP 150/76
== END 2023-10-25 16:45 | disposition home or self-care (01) ==
LOC: ATC 03:22
DX: E86.0 Dehydration (principal); E03.9 Hypothyroidism, unspecified; I10 Essential (primary) hypertension; K21.9 Gastro-esophageal reflux disease without esophagitis; M19.90 Unspecified osteoarthritis, unspecified site; K52.9 Noninfective gastroenteritis and colitis, unspecified; E16.2 Hypoglycemia, unspecified; Z98.84 Bariatric surgery status
CPT/HCPCS: 96360; 96361; J1642; J7120

== ENCOUNTER 2023-12-23 04:03 | Day surgery (SDC) | payer MEDICARE, OTHER ==
[2023-12-23] MEDS ORDERED: Lactated Ringer's 1,000 ML IV SCH (07:05)
[2023-12-23 08:52] VITALS: BP 117/63
[2024-01-06] MEDS ORDERED: DEXLANSOPRAZOLE30 MG PO (08:59)
== END 2023-12-23 11:01 | disposition home or self-care (01) ==
LOC: ATC 04:03
DX: E86.0 Dehydration (principal); I10 Essential (primary) hypertension; K21.9 Gastro-esophageal reflux disease without esophagitis; E03.9 Hypothyroidism, unspecified; Z98.84 Bariatric surgery status
CPT/HCPCS: 96360; 96361; J1642; J7120

== ENCOUNTER 2023-12-26 05:05 | Day surgery (SDC) | payer MEDICARE, OTHER ==
[2023-12-26] MEDS ORDERED: Lactated Ringer's 1,000 ML IV SCH (07:20)
[2023-12-26 08:50] VITALS: BP 135/71
[2024-01-06] MEDS ORDERED: DEXLANSOPRAZOLE30 MG PO (08:59)
== END 2023-12-26 11:04 | disposition home or self-care (01) ==
LOC: ATC 05:05
DX: E86.0 Dehydration (principal); I10 Essential (primary) hypertension; E03.9 Hypothyroidism, unspecified; Z98.84 Bariatric surgery status
CPT/HCPCS: 96360; 96361; J1642; J7120

== ENCOUNTER 2023-12-28 03:29 | Day surgery (SDC) | payer MEDICARE, OTHER ==
[2023-12-28] MEDS ORDERED: Lactated Ringer's 1,000 ML IV SCH (07:15)
[2023-12-28 09:10] VITALS: BP 136/68
[2024-01-06] MEDS ORDERED: DEXLANSOPRAZOLE30 MG PO (08:59)
== END 2023-12-28 11:19 | disposition home or self-care (01) ==
LOC: ATC 03:29
DX: E86.0 Dehydration (principal); I10 Essential (primary) hypertension; E03.8 Other specified hypothyroidism; Z98.84 Bariatric surgery status; Z79.899 Other long term (current) drug therapy
CPT/HCPCS: 96360; 96361; J1642; J7120

== ENCOUNTER 2023-12-30 01:45 | Day surgery (SDC) | payer MEDICARE, OTHER ==
[2023-12-30] MEDS ORDERED: Lactated Ringer's 2,000 ML IV SCH (06:40)
[2023-12-30 09:00] VITALS: BP 133/65
== END 2023-12-30 11:01 | disposition home or self-care (01) ==
LOC: ATC 01:45
DX: E86.0 Dehydration (principal); I10 Essential (primary) hypertension; K21.9 Gastro-esophageal reflux disease without esophagitis; M19.90 Unspecified osteoarthritis, unspecified site; E03.9 Hypothyroidism, unspecified; Z98.84 Bariatric surgery status
CPT/HCPCS: 96360; 96361; J1642; J7120

== ENCOUNTER 2024-01-02 04:44 | Day surgery (SDC) | payer MEDICARE, OTHER ==
[2024-01-02] MEDS ORDERED: Lactated Ringer's 1,000 ML IV SCH (07:05)
[2024-01-02 09:01] VITALS: BP 110/64
== END 2024-01-02 11:06 | disposition home or self-care (01) ==
LOC: ATC 04:44
DX: E86.0 Dehydration (principal); I10 Essential (primary) hypertension; E03.8 Other specified hypothyroidism; Z98.84 Bariatric surgery status
CPT/HCPCS: 96360; 96361; J1642; J7120

== ENCOUNTER 2024-01-04 03:16 | Day surgery (SDC) | payer MEDICARE, OTHER ==
[2024-01-04] MEDS ORDERED: Lactated Ringer's 1,000 ML IV SCH (07:10)
[2024-01-04 09:26] VITALS: BP 147/67
[2024-01-06] MEDS ORDERED: DEXLANSOPRAZOLE30 MG PO (08:59)
== END 2024-01-04 11:20 | disposition home or self-care (01) ==
LOC: ATC 03:16
DX: E86.0 Dehydration (principal); E03.9 Hypothyroidism, unspecified; I10 Essential (primary) hypertension; K21.9 Gastro-esophageal reflux disease without esophagitis
CPT/HCPCS: 96360; 96361; J1642; J7120

== ENCOUNTER 2024-01-09 00:16 | Day surgery (SDC) | payer MEDICARE, OTHER ==
[2024-01-09 11:25] VITALS: BP 171/84
== END 2024-01-09 11:26 | disposition home or self-care (01) ==
LOC: ATC 00:16
DX: E86.0 Dehydration (principal); Z98.84 Bariatric surgery status; I10 Essential (primary) hypertension; E03.8 Other specified hypothyroidism; Z79.890 Hormone replacement therapy; Z79.899 Other long term (current) drug therapy

== ENCOUNTER 2024-01-11 04:34 | Day surgery (SDC) | payer MEDICARE, OTHER ==
[2024-01-11 09:27] VITALS: BP 143/73
== END 2024-01-11 11:20 | disposition home or self-care (01) ==
LOC: ATC 04:34
DX: E86.0 Dehydration (principal); I10 Essential (primary) hypertension; K21.9 Gastro-esophageal reflux disease without esophagitis; E03.9 Hypothyroidism, unspecified; Z98.84 Bariatric surgery status

== ENCOUNTER 2024-01-13 05:05 | Day surgery (SDC) | payer MEDICARE, OTHER ==
[2024-01-13 08:55] VITALS: BP 146/75
== END 2024-01-13 11:03 | disposition home or self-care (01) ==
LOC: ATC 05:05
DX: E86.0 Dehydration (principal); E03.8 Other specified hypothyroidism; I10 Essential (primary) hypertension; K21.9 Gastro-esophageal reflux disease without esophagitis; E03.9 Hypothyroidism, unspecified; Z79.899 Other long term (current) drug therapy

== ENCOUNTER 2024-01-16 03:50 | Day surgery (SDC) | payer MEDICARE, OTHER ==
[2024-01-16 09:03] VITALS: BP 142/70
== END 2024-01-16 11:28 | disposition home or self-care (01) ==
LOC: ATC 03:50
DX: E86.0 Dehydration (principal); E03.9 Hypothyroidism, unspecified; I10 Essential (primary) hypertension; K21.9 Gastro-esophageal reflux disease without esophagitis; Z98.84 Bariatric surgery status

== ENCOUNTER 2024-02-13 04:00 | Day surgery (SDC) | payer MEDICARE, OTHER ==
[~2024-02-13 04:00] MED LIST changes: +DEXLANSOPRAZOLE30 MG PO
[2024-02-13] MEDS ORDERED: Lactated Ringer's 1,000 ML IV SCH (07:30)
[2024-02-13 09:01] VITALS: BP 153/64
== END 2024-02-13 11:14 | disposition home or self-care (01) ==
LOC: ATC 04:00
DX: E86.0 Dehydration (principal); I10 Essential (primary) hypertension; K21.9 Gastro-esophageal reflux disease without esophagitis; M19.90 Unspecified osteoarthritis, unspecified site; E03.9 Hypothyroidism, unspecified; Z98.84 Bariatric surgery status
CPT/HCPCS: 96360; 96361; J1642; J7120

== ENCOUNTER 2024-02-15 02:55 | Day surgery (SDC) | payer MEDICARE, OTHER ==
[~2024-02-15 02:55] MED LIST changes: -Zithromax Tri-500 MG PO
[2024-02-15] MEDS ORDERED: Lactated Ringer's 1,000 ML IV SCH (07:05)
[2024-02-15 09:10] VITALS: BP 145/62
== END 2024-02-15 11:07 | disposition home or self-care (01) ==
LOC: ATC 02:55
DX: E86.0 Dehydration (principal); I10 Essential (primary) hypertension; E03.9 Hypothyroidism, unspecified; Z98.84 Bariatric surgery status
CPT/HCPCS: 96360; 96361; J1642; J7120

== ENCOUNTER → 2024-02-15 | Outpatient (CLI) | payer MEDICARE, OTHER ==
[~2024-02-15] MED LIST changes: +Zithromax Tri-500 MG PO
[2024-02-15 13:19] LABS: BASOPHILS ABSOLUTE AUTO 0.03 K/mm3 (0.00-0.23); BASOPHILS PERCENT AUTO 0 % (0-2); EOSINOPHILS ABSOLUTE AUTO 0.13 K/mm3 (0.00-0.68); EOSINOPHILS PERCENT AUTO 1 % (0-6); Hematocrit 41.7 % (33.0-51.0); Hemoglobin 13.6 g/dL (11.5-16.0); IMMATURE GRAN ABSOLUTE AUTO 0.03 K/mm3 (0.00-0.10); IMMATURE GRAN PERCENT AUTO 0 % (0-1); LYMPHOCYTES PERCENT AUTO 14 % (21-46); MONOCYTES ABSOLUTE AUTO 0.91 K/mm3 (0.16-1.47); MONOCYTES PERCENT AUTO 10 % (4-13); Mean Corpuscular HGB Conc 32.6 g/dL (31.5-36.5); Mean Corpuscular Volume 92 fL (80-100); Mean Platelet Volume 9.6 fL (9.1-12.4); NEUTROPHILS PERCENT AUTO 74 % (41-73); Platelet Count 219 K/mm3 (150-400); RDW Coefficient Variation 13.6 % (11.7-14.2); Red Blood Cell Count 4.54 M/mm3 (3.80-5.20)
[2024-02-15 13:32] LABS: Albumin, Blood 3.4 g/dL (3.4-5.0); Albumin/Globulin Ratio 0.9 (0.8-1.8); Bilirubin, Total 0.9 mg/dL (0.1-1.0); Bun/Creatinine Ratio 6.4 (12.0-20.0); Calcium, Blood 8.8 mg/dL (8.5-10.1); Creatinine, Blood 0.78 mg/dL (0.40-1.00); Potassium, Blood 3.9 mmol/L (3.5-5.5); Total Protein, Blood 7.4 g/dL (6.4-8.2)
== END ==
LOC: LAB 13:13 → LAB SHORT 13:13
PROVIDERS: Chiropractor
DX: N39.0 Urinary tract infection, site not specified (principal); R07.9 Chest pain, unspecified
CPT/HCPCS: 80053; 84484; 85025; 87077; 87086; 87186

== ENCOUNTER 2024-02-17 06:23 | Day surgery (SDC) | payer MEDICARE, OTHER ==
[2024-02-17] MEDS ORDERED: Lactated Ringer's 2,000 ML IV SCH (06:55)
[2024-02-17 09:04] VITALS: BP 133/71
[2024-02-17] MEDS ORDERED: Zithromax Tri-500 MG PO (09:06)
== END 2024-02-17 11:09 | disposition home or self-care (01) ==
LOC: ATC 06:23
DX: E86.0 Dehydration (principal); R10.9 Unspecified abdominal pain; K52.9 Noninfective gastroenteritis and colitis, unspecified; I10 Essential (primary) hypertension; E16.2 Hypoglycemia, unspecified; E03.9 Hypothyroidism, unspecified; N39.0 Urinary tract infection, site not specified; K91.1 Postgastric surgery syndromes; Z79.890 Hormone replacement therapy; Z79.899 Other long term (current) drug therapy
CPT/HCPCS: 96360; 96361; J1642; J7120

== ENCOUNTER 2024-02-20 02:11 | Day surgery (SDC) | payer MEDICARE, OTHER ==
[~2024-02-20 02:11] MED LIST changes: +Zithromax Tri-500 MG PO
[2024-02-20] MEDS ORDERED: Lactated Ringer's 1,000 ML IV SCH (07:05)
[2024-02-20 08:54] VITALS: BP 116/47
== END 2024-02-20 11:05 | disposition home or self-care (01) ==
LOC: ATC 02:11
DX: E86.0 Dehydration (principal); I10 Essential (primary) hypertension; K21.9 Gastro-esophageal reflux disease without esophagitis; M19.90 Unspecified osteoarthritis, unspecified site; E03.9 Hypothyroidism, unspecified; Z98.84 Bariatric surgery status
CPT/HCPCS: 96360; 96361; J1642; J7120

== ENCOUNTER 2024-02-22 03:19 | Day surgery (SDC) | payer MEDICARE, OTHER ==
[2024-02-22] MEDS ORDERED: Lactated Ringer's 1,000 ML IV SCH (07:05)
[2024-02-22 09:10] VITALS: BP 129/75
== END 2024-02-22 11:20 | disposition home or self-care (01) ==
LOC: ATC 03:19
DX: E86.0 Dehydration (principal); R10.9 Unspecified abdominal pain; K52.9 Noninfective gastroenteritis and colitis, unspecified; I10 Essential (primary) hypertension; E03.8 Other specified hypothyroidism
CPT/HCPCS: 96360; 96361; J1642; J7120

== ENCOUNTER → 2024-02-23 | Outpatient (CLI) | payer MEDICARE, OTHER ==
[~2024-02-23] MED LIST changes: +MACRODANTIN PO
== END ==
LOC: LAB SHORT 17:10 → LAB 17:10
DX: R35.0 Frequency of micturition (principal)
CPT/HCPCS: 87086

== ENCOUNTER 2024-02-24 02:09 | Day surgery (SDC) | payer MEDICARE, OTHER ==
[~2024-02-24 02:09] MED LIST changes: -MACRODANTIN PO
[2024-02-24] MEDS ORDERED: Lactated Ringer's 2,000 ML IV SCH (07:10)
[2024-02-24 09:22] VITALS: BP 123/73
== END 2024-02-24 11:12 | disposition home or self-care (01) ==
LOC: ATC 02:09
DX: E86.0 Dehydration (principal); I10 Essential (primary) hypertension; K21.9 Gastro-esophageal reflux disease without esophagitis; M19.90 Unspecified osteoarthritis, unspecified site; E03.9 Hypothyroidism, unspecified; Z98.84 Bariatric surgery status
CPT/HCPCS: 96360; 96361; J1642; J7120

== ENCOUNTER 2024-02-27 04:02 | Day surgery (SDC) | payer MEDICARE, OTHER ==
[2024-02-27] MEDS ORDERED: Lactated Ringer's 1,000 ML IV SCH (08:25)
[2024-02-27 09:06] VITALS: BP 144/70
[2024-02-27] MEDS ORDERED: MACRODANTIN PO (09:11)
== END 2024-02-27 11:18 | disposition home or self-care (01) ==
LOC: ATC 04:02
DX: E86.0 Dehydration (principal); E03.9 Hypothyroidism, unspecified; I10 Essential (primary) hypertension; K21.9 Gastro-esophageal reflux disease without esophagitis; M19.90 Unspecified osteoarthritis, unspecified site; Z98.84 Bariatric surgery status
CPT/HCPCS: 96360; 96361; J1642; J7120

== ENCOUNTER 2024-02-29 02:56 | Day surgery (SDC) | payer MEDICARE, OTHER ==
[~2024-02-29 02:56] MED LIST changes: +MACRODANTIN PO
[2024-02-29] MEDS ORDERED: Lactated Ringer's 2,000 ML IV SCH (06:40)
[2024-02-29 09:05] VITALS: BP 144/77
--- NOTE | 2024-02-29 09:24 | NUR ---
NEW ORDER RECIEVED FOR 1 LITER LR OVER 2 HOURS DAILY, MON-FRI.
--- NOTE | 2024-02-29 11:18 | NUR ---
STOOP TIME: [id number]
== END 2024-02-29 11:16 | disposition home or self-care (01) ==
LOC: ATC 02:56
DX: E86.0 Dehydration (principal); I10 Essential (primary) hypertension; E78.5 Hyperlipidemia, unspecified; G43.819 Other migraine, intractable, without status migrainosus
CPT/HCPCS: 96360; 96361; J1642; J7120

== ENCOUNTER 2024-03-01 03:04 | Day surgery (SDC) | payer MEDICARE, OTHER ==
[2024-03-01] MEDS ORDERED: Lactated Ringer's 1,000 ML IV SCH (06:55)
[2024-03-01 07:52] VITALS: BP 103/64
== END 2024-03-01 10:00 | disposition home or self-care (01) ==
LOC: ATC 03:04
DX: E86.0 Dehydration (principal); I10 Essential (primary) hypertension; E78.5 Hyperlipidemia, unspecified; G43.819 Other migraine, intractable, without status migrainosus; G47.30 Sleep apnea, unspecified; K21.9 Gastro-esophageal reflux disease without esophagitis; Z79.899 Other long term (current) drug therapy
CPT/HCPCS: 96360; 96361; J1642; J7120

== ENCOUNTER 2024-03-02 03:23 | Day surgery (SDC) | payer MEDICARE, OTHER ==
[2024-03-02] MEDS ORDERED: Lactated Ringer's 1,000 ML IV SCH (07:15)
[2024-03-02 08:50] VITALS: BP 133/67
== END 2024-03-02 11:02 | disposition home or self-care (01) ==
LOC: ATC 03:23
DX: E86.0 Dehydration (principal); I10 Essential (primary) hypertension; G43.819 Other migraine, intractable, without status migrainosus; E78.5 Hyperlipidemia, unspecified
CPT/HCPCS: 96360; 96361; J1642; J7120

== ENCOUNTER 2024-03-05 02:37 | Day surgery (SDC) | payer MEDICARE, OTHER ==
[2024-03-05] MEDS ORDERED: Lactated Ringer's 1,000 ML IV SCH (07:10)
[2024-03-05 08:54] VITALS: BP 134/84
== END 2024-03-05 11:07 | disposition home or self-care (01) ==
LOC: ATC 02:37
DX: E86.0 Dehydration (principal); E78.5 Hyperlipidemia, unspecified; G43.819 Other migraine, intractable, without status migrainosus; I10 Essential (primary) hypertension
CPT/HCPCS: 96360; 96361; J1642; J7120

== ENCOUNTER 2024-03-06 00:52 | Day surgery (SDC) | payer MEDICARE, OTHER ==
[2024-03-06] MEDS ORDERED: Lactated Ringer's 1,000 ML IV SCH (07:00)
[2024-03-06 13:32] VITALS: BP 131/74
== END 2024-03-06 15:44 | disposition home or self-care (01) ==
LOC: ATC 00:52
DX: E86.0 Dehydration (principal); I10 Essential (primary) hypertension; E78.5 Hyperlipidemia, unspecified; E03.8 Other specified hypothyroidism; K21.9 Gastro-esophageal reflux disease without esophagitis; Z79.890 Hormone replacement therapy; Z79.899 Other long term (current) drug therapy
CPT/HCPCS: 96360; 96361; J1642; J7120

== ENCOUNTER 2024-03-07 03:28 | Day surgery (SDC) | payer MEDICARE, OTHER ==
[2024-03-07] MEDS ORDERED: Lactated Ringer's 1,000 ML IV SCH (06:55)
[2024-03-07 08:45] VITALS: BP 149/69
== END 2024-03-07 10:57 | disposition home or self-care (01) ==
LOC: ATC 03:28
DX: E86.0 Dehydration (principal); I10 Essential (primary) hypertension; E78.5 Hyperlipidemia, unspecified; G47.30 Sleep apnea, unspecified; K21.9 Gastro-esophageal reflux disease without esophagitis; Z79.899 Other long term (current) drug therapy
CPT/HCPCS: 96360; 96361; J1642; J7120

== ENCOUNTER 2024-03-09 02:47 | Day surgery (SDC) | payer MEDICARE, OTHER ==
[2024-03-09] MEDS ORDERED: Lactated Ringer's 1,000 ML IV SCH (07:00)
[2024-03-09 08:51] VITALS: BP 135/64
== END 2024-03-09 10:58 | disposition home or self-care (01) ==
LOC: ATC 02:47
DX: E86.0 Dehydration (principal); I10 Essential (primary) hypertension; E78.5 Hyperlipidemia, unspecified; Z79.899 Other long term (current) drug therapy
CPT/HCPCS: 96360; 96361; J1642; J7120

== ENCOUNTER 2024-03-12 02:52 | Day surgery (SDC) | payer MEDICARE, OTHER ==
[2024-03-12] MEDS ORDERED: Lactated Ringer's 1,000 ML IV SCH (06:55)
[2024-03-12 09:08] VITALS: BP 112/67
== END 2024-03-12 11:18 | disposition home or self-care (01) ==
LOC: ATC 02:52
DX: E86.0 Dehydration (principal); I10 Essential (primary) hypertension; E78.5 Hyperlipidemia, unspecified; Z79.899 Other long term (current) drug therapy
CPT/HCPCS: 96360; 96361; J1642; J7120

== ENCOUNTER 2024-03-13 09:27 | Day surgery (SDC) | payer MEDICARE, OTHER ==
[~2024-03-13 09:27] MED LIST changes: +Lactated Ringer's 1,000 ML IV SCH
[2024-03-13 14:58] VITALS: BP 148/76
== END 2024-03-13 17:06 | disposition home or self-care (01) ==
LOC: ATC 09:27
DX: E86.0 Dehydration (principal); I10 Essential (primary) hypertension; E78.5 Hyperlipidemia, unspecified; G43.819 Other migraine, intractable, without status migrainosus; Z79.899 Other long term (current) drug therapy
CPT/HCPCS: 96360; 96361; J1642; J7120

== ENCOUNTER 2024-03-14 02:34 | Day surgery (SDC) | payer MEDICARE, OTHER ==
[~2024-03-14 02:34] MED LIST changes: -Lactated Ringer's 1,000 ML IV SCH
[2024-03-14] MEDS ORDERED: Lactated Ringer's 1,000 ML IV SCH (07:00)
[2024-03-14 08:59] VITALS: BP 124/69
== END 2024-03-14 11:04 | disposition home or self-care (01) ==
LOC: ATC 02:34
DX: E86.0 Dehydration (principal); I10 Essential (primary) hypertension; E78.5 Hyperlipidemia, unspecified; G43.819 Other migraine, intractable, without status migrainosus; Z79.899 Other long term (current) drug therapy; Z88.5 Allergy status to narcotic agent; Z88.8 Allergy status to other drugs, medicaments and biological substances
CPT/HCPCS: 96360; 96361; J1642; J7120

== ENCOUNTER 2024-03-15 02:50 | Day surgery (SDC) | payer MEDICARE, OTHER ==
[2024-03-15] MEDS ORDERED: Lactated Ringer's 1,000 ML IV SCH (06:40)
[2024-03-15 08:01] VITALS: BP 135/62
== END 2024-03-15 10:05 | disposition home or self-care (01) ==
LOC: ATC 02:50
DX: E86.0 Dehydration (principal); I10 Essential (primary) hypertension; G47.30 Sleep apnea, unspecified; E78.5 Hyperlipidemia, unspecified; E03.9 Hypothyroidism, unspecified; K21.9 Gastro-esophageal reflux disease without esophagitis; Z88.1 Allergy status to other antibiotic agents; Z88.5 Allergy status to narcotic agent; Z88.6 Allergy status to analgesic agent; Z88.8 Allergy status to other drugs, medicaments and biological substances; Z79.899 Other long term (current) drug therapy
CPT/HCPCS: 96360; 96361; J1642; J7120

== ENCOUNTER 2024-03-19 03:35 | Day surgery (SDC) | payer MEDICARE, OTHER ==
[2024-03-19] MEDS ORDERED: Lactated Ringer's 1,000 ML IV SCH (07:00)
[2024-03-19 08:50] VITALS: BP 127/73
== END 2024-03-19 11:06 | disposition home or self-care (01) ==
LOC: ATC 03:35
DX: E86.0 Dehydration (principal); I10 Essential (primary) hypertension; E78.5 Hyperlipidemia, unspecified; G43.819 Other migraine, intractable, without status migrainosus
CPT/HCPCS: 96360; 96361; J1642; J7120

== ENCOUNTER 2024-03-20 02:49 | Day surgery (SDC) | payer MEDICARE, OTHER ==
[2024-03-20] MEDS ORDERED: Lactated Ringer's 1,000 ML IV SCH ×2 (07:25→11:00)
[2024-03-20 15:03] VITALS: BP 155/62
== END 2024-03-20 16:15 | disposition home or self-care (01) ==
LOC: ATC 02:49
DX: E86.0 Dehydration (principal); I10 Essential (primary) hypertension; G43.819 Other migraine, intractable, without status migrainosus; E78.5 Hyperlipidemia, unspecified; Z79.899 Other long term (current) drug therapy
CPT/HCPCS: 96360; J1642; J7120

== ENCOUNTER 2024-03-21 03:28 | Day surgery (SDC) | payer MEDICARE, OTHER ==
[2024-03-21] MEDS ORDERED: Lactated Ringer's 1,000 ML IV SCH (06:55)
[2024-03-21 08:58] VITALS: BP 138/74
== END 2024-03-21 10:01 | disposition home or self-care (01) ==
LOC: ATC 03:28
DX: E86.0 Dehydration (principal); I10 Essential (primary) hypertension; E78.5 Hyperlipidemia, unspecified
CPT/HCPCS: 96360; 96361; J1642; J7120

== ENCOUNTER 2024-03-22 01:53 | Day surgery (SDC) | payer MEDICARE, OTHER ==
[2024-03-22] MEDS ORDERED: Lactated Ringer's 1,000 ML IV SCH (06:40)
[2024-03-22 08:57] VITALS: BP 155/76
== END 2024-03-22 11:05 | disposition home or self-care (01) ==
LOC: ATC 01:53
DX: E86.0 Dehydration (principal); G47.30 Sleep apnea, unspecified; I10 Essential (primary) hypertension; E78.5 Hyperlipidemia, unspecified; G43.819 Other migraine, intractable, without status migrainosus
CPT/HCPCS: 96360; 96361; J1642; J7120

== ENCOUNTER 2024-03-25 07:42 | Day surgery (SDC) | payer MEDICARE, OTHER ==
[~2024-03-25 07:42] MED LIST changes: +Lactated Ringer's 1,000 ML IV SCH
[2024-03-25 07:58] VITALS: BP 121/63
== END 2024-03-25 10:01 | disposition home or self-care (01) ==
LOC: ATC 07:42
DX: E86.0 Dehydration (principal); I10 Essential (primary) hypertension; E78.5 Hyperlipidemia, unspecified; G43.819 Other migraine, intractable, without status migrainosus; E03.8 Other specified hypothyroidism; G47.30 Sleep apnea, unspecified; K21.9 Gastro-esophageal reflux disease without esophagitis; Z79.890 Hormone replacement therapy; Z79.899 Other long term (current) drug therapy
CPT/HCPCS: 96360; 96361; J1642; J7120

== ENCOUNTER 2024-03-26 08:47 | Day surgery (SDC) | payer MEDICARE, OTHER ==
[2024-03-26 08:58] VITALS: BP 144/77
== END 2024-03-26 11:07 | disposition home or self-care (01) ==
LOC: ATC 08:47
DX: E86.0 Dehydration (principal); I10 Essential (primary) hypertension; E78.5 Hyperlipidemia, unspecified; G43.819 Other migraine, intractable, without status migrainosus
CPT/HCPCS: 96360; 96361; J1642; J7120

== ENCOUNTER 2024-03-27 03:27 | Day surgery (SDC) | payer MEDICARE, OTHER ==
[~2024-03-27 03:27] MED LIST changes: -Lactated Ringer's 1,000 ML IV SCH
[2024-03-27] MEDS ORDERED: Lactated Ringer's 500 ML IV SCH (07:00)
[2024-03-27 15:50] VITALS: BP 136/78
== END 2024-03-27 22:48 | disposition home or self-care (01) ==
LOC: ATC 03:27
DX: E86.0 Dehydration (principal); I10 Essential (primary) hypertension; E78.5 Hyperlipidemia, unspecified; Z79.899 Other long term (current) drug therapy
CPT/HCPCS: 96360; 96361; J1642; J7120

== ENCOUNTER 2024-04-03 01:43 | Day surgery (SDC) | payer MEDICARE, OTHER ==
[2024-04-03] MEDS ORDERED: Lactated Ringer's 1,000 ML IV SCH (07:00)
[2024-04-03 13:36] VITALS: BP 143/75
== END 2024-04-03 15:44 | disposition home or self-care (01) ==
LOC: ATC 01:43
DX: E86.0 Dehydration (principal); I10 Essential (primary) hypertension; G43.819 Other migraine, intractable, without status migrainosus; E78.5 Hyperlipidemia, unspecified; Z79.899 Other long term (current) drug therapy
CPT/HCPCS: 96360; 96361; J1642; J7120

== ENCOUNTER 2024-04-05 02:50 | Day surgery (SDC) | payer MEDICARE, OTHER ==
[2024-04-05] MEDS ORDERED: Lactated Ringer's 1,000 ML IV SCH (06:45)
[2024-04-05 08:55] VITALS: BP 141/72
== END 2024-04-05 11:00 | disposition home or self-care (01) ==
LOC: ATC 02:50
DX: E86.0 Dehydration (principal); I10 Essential (primary) hypertension; E78.5 Hyperlipidemia, unspecified; G43.819 Other migraine, intractable, without status migrainosus
CPT/HCPCS: 96360; 96361; J1642; J7120

== ENCOUNTER 2024-04-24 03:32 | Day surgery (SDC) | payer MEDICARE, OTHER ==
[2024-04-24] MEDS ORDERED: Lactated Ringer's 1,000 ML IV SCH ×2 (07:15→16:05)
[2024-04-24 16:10] VITALS: BP 145/80
== END 2024-04-24 18:21 | disposition home or self-care (01) ==
LOC: ATC 03:32
DX: E86.0 Dehydration (principal); I10 Essential (primary) hypertension; G43.819 Other migraine, intractable, without status migrainosus; E78.5 Hyperlipidemia, unspecified; Z79.899 Other long term (current) drug therapy
CPT/HCPCS: 96360; 96361; J1642; J7120

== ENCOUNTER 2024-04-25 05:54 | Day surgery (SDC) | payer MEDICARE, OTHER ==
[2024-04-25] MEDS ORDERED: Lactated Ringer's 1,000 ML IV SCH (07:00)
[2024-04-25 08:50] VITALS: BP 144/71
== END 2024-04-25 11:14 | disposition home or self-care (01) ==
LOC: ATC 05:54
DX: E86.0 Dehydration (principal); I10 Essential (primary) hypertension; G43.819 Other migraine, intractable, without status migrainosus; E78.5 Hyperlipidemia, unspecified; Z79.899 Other long term (current) drug therapy; R42 Dizziness and giddiness
CPT/HCPCS: 70551; 96360; 96361; J1642; J7120

== ENCOUNTER 2024-04-26 02:42 | Day surgery (SDC) | payer MEDICARE, OTHER ==
[2024-04-26] MEDS ORDERED: Lactated Ringer's 1,000 ML IV SCH (08:00)
[2024-04-26 08:50] VITALS: BP 147/77
== END 2024-04-26 11:06 | disposition home or self-care (01) ==
LOC: ATC 02:42
DX: E86.0 Dehydration (principal); I10 Essential (primary) hypertension; G43.819 Other migraine, intractable, without status migrainosus; E78.5 Hyperlipidemia, unspecified; E03.8 Other specified hypothyroidism; G47.30 Sleep apnea, unspecified; K21.9 Gastro-esophageal reflux disease without esophagitis; Z79.890 Hormone replacement therapy; Z79.899 Other long term (current) drug therapy
CPT/HCPCS: 96360; 96361; J1642; J7120

== ENCOUNTER 2024-04-27 03:18 | Day surgery (SDC) | payer MEDICARE, OTHER ==
[2024-04-27] MEDS ORDERED: Lactated Ringer's 1,000 ML IV SCH (07:20)
[2024-04-27 08:57] VITALS: BP 155/65
== END 2024-04-27 11:04 | disposition home or self-care (01) ==
LOC: ATC 03:18
DX: E86.0 Dehydration (principal); I10 Essential (primary) hypertension; G43.819 Other migraine, intractable, without status migrainosus; E78.5 Hyperlipidemia, unspecified
CPT/HCPCS: 96360; 96361; J1642; J7120

== ENCOUNTER 2024-04-30 00:37 | Day surgery (SDC) | payer MEDICARE, OTHER ==
[2024-04-30] MEDS ORDERED: Lactated Ringer's 1,000 ML IV SCH (07:15)
[2024-04-30 08:58] VITALS: BP 132/74
== END 2024-04-30 11:22 | disposition home or self-care (01) ==
LOC: ATC 00:37
DX: E86.0 Dehydration (principal); I10 Essential (primary) hypertension; E78.5 Hyperlipidemia, unspecified; G43.819 Other migraine, intractable, without status migrainosus
CPT/HCPCS: 96360; 96361; J1642; J7120

== ENCOUNTER 2024-05-01 02:09 | Day surgery (SDC) | payer MEDICARE, OTHER ==
[2024-05-01] MEDS ORDERED: Lactated Ringer's 1,000 ML IV SCH (07:10)
[2024-05-01 09:04] VITALS: BP 132/63
== END 2024-05-01 11:15 | disposition home or self-care (01) ==
LOC: ATC 02:09
DX: E86.0 Dehydration (principal); I10 Essential (primary) hypertension; E78.5 Hyperlipidemia, unspecified; G43.819 Other migraine, intractable, without status migrainosus
CPT/HCPCS: 96360; 96361; J1642; J7120

== ENCOUNTER 2024-05-02 00:38 | Day surgery (SDC) | payer MEDICARE, OTHER ==
[2024-05-02] MEDS ORDERED: Lactated Ringer's 1,000 ML IV SCH (07:10)
[2024-05-02 08:51] VITALS: BP 121/64
--- NOTE | 2024-05-02 10:51 | NUR ---
Pt got up to use the restroom and has some swelling around her port site. She denies pain around the site. Stopped infusion. Mediport draws back blood easily and flushes without pain. Discussed with pt the need to have her mediport evaluated to see if it is leaking. Pt reports she will contact MD who placed the mediport to have it checked out. Pt cancelled the rest of her appoitments for IV fluids this week. Discussed options for peripheral IV site vs. powerglide for IV fluids while mediport is being evaluated. Pt to contact [facility] once she has had her mediport evaluated.
== END 2024-05-02 10:51 | disposition home or self-care (01) ==
LOC: ATC 00:38
DX: E86.0 Dehydration (principal); I10 Essential (primary) hypertension; G43.819 Other migraine, intractable, without status migrainosus; E78.5 Hyperlipidemia, unspecified; Z79.899 Other long term (current) drug therapy
CPT/HCPCS: 96360; 96361; J1642; J7120

== ENCOUNTER 2024-05-04 01:23 | Day surgery (SDC) | payer MEDICARE, OTHER ==
[2024-05-04] MEDS ORDERED: Lactated Ringer's 1,000 ML IV SCH (07:10)
[2024-05-04 09:01] VITALS: BP 137/62
--- NOTE | 2024-05-04 12:16 | NUR ---
Contacted Dr. Cahdwick's office in [place]. Staff state that because the port is several years old that they will need a new referral to evaluate current port and possiblly replace it. Called Dr. Manriquez's office, got a message that states the office is closed for the long holiday weekend. Called pt and told her that we are unable to get a referral until next week. Pt canceled her Tuesday appointment. Will attempt to get a referral next week to have her port investigated.
== END 2024-05-04 11:22 | disposition home or self-care (01) ==
LOC: ATC 01:23
DX: E86.0 Dehydration (principal); I10 Essential (primary) hypertension; G43.819 Other migraine, intractable, without status migrainosus; E78.5 Hyperlipidemia, unspecified; Z79.899 Other long term (current) drug therapy
CPT/HCPCS: 96360; 96361; J1642; J7120

== ENCOUNTER 2024-05-08 00:45 | Day surgery (SDC) | payer MEDICARE, OTHER ==
[2024-05-08] MEDS ORDERED: Lactated Ringer's 1,000 ML IV SCH (07:05)
--- NOTE | 2024-05-08 08:02 | NUR ---
Called and spoke with office staff at Dr. Vargas's office. Staff will let Dr. Vargas know that Gail's port is not working appropriately. Requested to get a referral to Dr. Chadwick's office to have port investigated and/or possibly replaced. Dr. Jesus Manuel Chadwick in [place] is who placed Gail's current port several years ago.
[2024-05-08 13:50] VITALS: BP 147/65
== END 2024-05-08 16:19 | disposition home or self-care (01) ==
LOC: ATC 00:45
DX: E86.0 Dehydration (principal); I10 Essential (primary) hypertension; G43.819 Other migraine, intractable, without status migrainosus; E78.5 Hyperlipidemia, unspecified; Z79.899 Other long term (current) drug therapy
CPT/HCPCS: 96360; 96361; J7120

== ENCOUNTER 2024-05-09 03:49 | Day surgery (SDC) | payer MEDICARE, OTHER ==
[2024-05-09] MEDS ORDERED: Lactated Ringer's 1,000 ML IV SCH (07:05)
[2024-05-09] MEDS ORDERED: Lactated Ringer's 500 ML IV SCH (07:05)
[2024-05-09 08:53] VITALS: BP 119/72
== END 2024-05-09 11:08 | disposition home or self-care (01) ==
LOC: ATC 03:49
DX: E86.0 Dehydration (principal); I10 Essential (primary) hypertension; G43.819 Other migraine, intractable, without status migrainosus; E78.5 Hyperlipidemia, unspecified; Z79.899 Other long term (current) drug therapy
CPT/HCPCS: 96360; 96361; J7120

== ENCOUNTER 2024-05-10 01:06 | Day surgery (SDC) | payer MEDICARE, OTHER ==
[2024-05-10] MEDS ORDERED: Lactated Ringer's 1,000 ML IV SCH (07:00)
[2024-05-10 08:49] VITALS: BP 121/63
== END 2024-05-10 11:01 | disposition home or self-care (01) ==
LOC: ATC 01:06
DX: E86.0 Dehydration (principal); I10 Essential (primary) hypertension; G47.30 Sleep apnea, unspecified; G43.819 Other migraine, intractable, without status migrainosus; E78.5 Hyperlipidemia, unspecified
CPT/HCPCS: 96360; 96361; J7120

== ENCOUNTER 2024-05-17 01:12 | Day surgery (SDC) | payer MEDICARE, OTHER ==
[2024-05-17] MEDS ORDERED: Lactated Ringer's 1,000 ML IV SCH (06:40)
[2024-05-17 08:54] VITALS: BP 133/79
== END 2024-05-17 11:03 | disposition home or self-care (01) ==
LOC: ATC 01:12
DX: E86.0 Dehydration (principal); I10 Essential (primary) hypertension; E78.5 Hyperlipidemia, unspecified; G43.819 Other migraine, intractable, without status migrainosus; E03.8 Other specified hypothyroidism; G47.30 Sleep apnea, unspecified; K21.9 Gastro-esophageal reflux disease without esophagitis; Z79.890 Hormone replacement therapy; Z79.899 Other long term (current) drug therapy
CPT/HCPCS: 96360; 96361; J7120

== ENCOUNTER 2024-05-21 03:12 | Day surgery (SDC) | payer MEDICARE, OTHER ==
[2024-05-21] MEDS ORDERED: Lactated Ringer's 1,000 ML IV SCH (07:05)
[2024-05-21 08:51] VITALS: BP 116/79
== END 2024-05-21 11:20 | disposition home or self-care (01) ==
LOC: ATC 03:12
DX: E86.0 Dehydration (principal); I10 Essential (primary) hypertension; G43.819 Other migraine, intractable, without status migrainosus; E78.5 Hyperlipidemia, unspecified
CPT/HCPCS: 96360; 96361; J7120

== ENCOUNTER 2024-05-22 03:05 | Day surgery (SDC) | payer MEDICARE, OTHER ==
[2024-05-22] MEDS ORDERED: Lactated Ringer's 1,000 ML IV SCH (07:30)
[2024-05-22 14:01] VITALS: BP 135/71
== END 2024-05-22 16:05 | disposition home or self-care (01) ==
LOC: ATC 03:05
DX: E86.0 Dehydration (principal); I10 Essential (primary) hypertension; G47.30 Sleep apnea, unspecified; G43.819 Other migraine, intractable, without status migrainosus
CPT/HCPCS: 96360; 96361; J7120

== ENCOUNTER 2024-05-23 01:31 | Day surgery (SDC) | payer MEDICARE, OTHER ==
[2024-05-23] MEDS ORDERED: Lactated Ringer's 1,000 ML IV SCH (07:15)
[2024-05-23 09:08] VITALS: BP 141/68
== END 2024-05-23 11:16 | disposition home or self-care (01) ==
LOC: ATC 01:31
DX: E86.0 Dehydration (principal); E78.5 Hyperlipidemia, unspecified; I10 Essential (primary) hypertension; G43.819 Other migraine, intractable, without status migrainosus; Z79.899 Other long term (current) drug therapy
CPT/HCPCS: 96360; 96361; J7120

== ENCOUNTER 2024-05-24 02:29 | Day surgery (SDC) | payer MEDICARE, OTHER ==
[2024-05-24] MEDS ORDERED: Lactated Ringer's 500 ML IV SCH (07:05)
[2024-05-24 09:07] VITALS: BP 152/64
== END 2024-05-24 11:10 | disposition home or self-care (01) ==
LOC: ATC 02:29
DX: E86.0 Dehydration (principal); I10 Essential (primary) hypertension; E78.5 Hyperlipidemia, unspecified; K21.9 Gastro-esophageal reflux disease without esophagitis
CPT/HCPCS: 96360; 96361; J7120

== ENCOUNTER 2024-05-25 04:28 | Day surgery (SDC) | payer MEDICARE, OTHER ==
[2024-05-25] MEDS ORDERED: Lactated Ringer's 500 ML IV SCH (07:15)
[2024-05-25] MEDS ORDERED: Lactated Ringer's 1,000 ML IV SCH (07:25)
[2024-05-25 08:50] VITALS: BP 159/66
== END 2024-05-25 11:03 | disposition home or self-care (01) ==
LOC: ATC 04:28
DX: E86.0 Dehydration (principal); I10 Essential (primary) hypertension; E78.5 Hyperlipidemia, unspecified; G43.819 Other migraine, intractable, without status migrainosus; Z79.899 Other long term (current) drug therapy; Z88.5 Allergy status to narcotic agent; Z88.6 Allergy status to analgesic agent; Z88.0 Allergy status to penicillin
CPT/HCPCS: 96360; 96361; J7120

== ENCOUNTER 2024-05-28 04:13 | Day surgery (SDC) | payer MEDICARE, OTHER ==
[2024-05-28] MEDS ORDERED: Lactated Ringer's 1,000 ML IV SCH (07:05)
[2024-05-28 08:50] VITALS: BP 127/72
== END 2024-05-28 11:17 | disposition home or self-care (01) ==
LOC: ATC 04:13
DX: E86.0 Dehydration (principal); I10 Essential (primary) hypertension; G43.819 Other migraine, intractable, without status migrainosus; E78.5 Hyperlipidemia, unspecified; M19.90 Unspecified osteoarthritis, unspecified site; G47.30 Sleep apnea, unspecified; Z79.899 Other long term (current) drug therapy; Z88.0 Allergy status to penicillin; Z88.6 Allergy status to analgesic agent; Z88.5 Allergy status to narcotic agent; Z88.8 Allergy status to other drugs, medicaments and biological substances
CPT/HCPCS: 96360; 96361; J7120

== ENCOUNTER 2024-05-31 02:47 | Day surgery (SDC) | payer MEDICARE, OTHER ==
[2024-05-31] MEDS ORDERED: Lactated Ringer's 1,000 ML IV SCH (06:50)
[2024-05-31 08:56] VITALS: BP 147/66
== END 2024-05-31 11:08 | disposition home or self-care (01) ==
LOC: ATC 02:47
DX: E86.0 Dehydration (principal); I10 Essential (primary) hypertension; E78.5 Hyperlipidemia, unspecified; G43.819 Other migraine, intractable, without status migrainosus; K21.9 Gastro-esophageal reflux disease without esophagitis; G47.30 Sleep apnea, unspecified; E03.8 Other specified hypothyroidism; Z79.899 Other long term (current) drug therapy
CPT/HCPCS: 96360; 96361; J7120

== ENCOUNTER 2024-06-01 01:22 | Day surgery (SDC) | payer MEDICARE, OTHER ==
[2024-06-01] MEDS ORDERED: Lactated Ringer's 1,000 ML IV SCH (06:45)
[2024-06-01 08:50] VITALS: BP 152/73
== END 2024-06-01 11:12 | disposition home or self-care (01) ==
LOC: ATC 01:22
DX: E86.0 Dehydration (principal); E78.5 Hyperlipidemia, unspecified; I10 Essential (primary) hypertension; G43.819 Other migraine, intractable, without status migrainosus; Z79.899 Other long term (current) drug therapy
CPT/HCPCS: 96360; 96361; J7120

== ENCOUNTER 2024-06-05 02:16 | Day surgery (SDC) | payer MEDICARE, OTHER ==
[2024-06-05] MEDS ORDERED: Lactated Ringer's 500 ML IV SCH (06:55)
[2024-06-05 14:00] VITALS: BP 139/84
== END 2024-06-05 16:08 | disposition home or self-care (01) ==
LOC: ATC 02:16
DX: E86.0 Dehydration (principal); I10 Essential (primary) hypertension; E03.9 Hypothyroidism, unspecified; E78.5 Hyperlipidemia, unspecified; G43.819 Other migraine, intractable, without status migrainosus; G47.30 Sleep apnea, unspecified; K21.9 Gastro-esophageal reflux disease without esophagitis; Z79.899 Other long term (current) drug therapy
CPT/HCPCS: 96360; 96361; J7120

== ENCOUNTER 2024-06-06 02:30 | Day surgery (SDC) | payer MEDICARE, OTHER ==
[2024-06-06] MEDS ORDERED: Lactated Ringer's 1,000 ML IV SCH (06:55)
[2024-06-06 08:52] VITALS: BP 137/77
== END 2024-06-06 11:08 | disposition home or self-care (01) ==
LOC: ATC 02:30
DX: E86.0 Dehydration (principal); I10 Essential (primary) hypertension; E78.5 Hyperlipidemia, unspecified; G43.819 Other migraine, intractable, without status migrainosus; K21.9 Gastro-esophageal reflux disease without esophagitis; Z79.899 Other long term (current) drug therapy
CPT/HCPCS: 96360; 96361; J7120

== ENCOUNTER 2024-06-07 02:34 | Day surgery (SDC) | payer MEDICARE, OTHER ==
[2024-06-07] MEDS ORDERED: Lactated Ringer's 1,000 ML IV SCH (06:50)
[2024-06-07 08:59] VITALS: BP 149/77
== END 2024-06-07 11:07 | disposition home or self-care (01) ==
LOC: ATC 02:34
DX: E86.0 Dehydration (principal); E78.5 Hyperlipidemia, unspecified; I10 Essential (primary) hypertension; G43.819 Other migraine, intractable, without status migrainosus; Z79.899 Other long term (current) drug therapy
CPT/HCPCS: 96360; 96361; J7120

== ENCOUNTER 2024-06-08 10:05 | Day surgery (SDC) | payer MEDICARE, OTHER ==
[2024-06-08 09:03] VITALS: BP 150/75
[~2024-06-08 10:05] MED LIST changes: +Lactated Ringer's 1,000 ML IV SCH
== END 2024-06-08 11:16 | disposition home or self-care (01) ==
LOC: ATC 10:05
DX: E86.0 Dehydration (principal); I10 Essential (primary) hypertension; G47.30 Sleep apnea, unspecified; M19.90 Unspecified osteoarthritis, unspecified site; G43.819 Other migraine, intractable, without status migrainosus; E78.5 Hyperlipidemia, unspecified; Z79.84 Long term (current) use of oral hypoglycemic drugs; Z79.890 Hormone replacement therapy; Z79.899 Other long term (current) drug therapy; Z88.0 Allergy status to penicillin; Z88.5 Allergy status to narcotic agent; Z88.6 Allergy status to analgesic agent; Z88.8 Allergy status to other drugs, medicaments and biological substances
CPT/HCPCS: 96360; 96361; J7120

== ENCOUNTER 2024-06-11 01:27 | Day surgery (SDC) | payer MEDICARE, OTHER ==
[~2024-06-11 01:27] MED LIST changes: -Lactated Ringer's 1,000 ML IV SCH
[2024-06-11] MEDS ORDERED: Lactated Ringer's 1,000 ML IV SCH (07:05)
[2024-06-11 09:17] VITALS: BP 130/74
--- NOTE | 2024-06-11 09:18 | NUR ---
PUBLIC RELATIONS ACCOUNT EXECUTIVE DOCUMENTATION This professor of nursing obtained verbal consent to participate in care.
== END 2024-06-11 11:18 | disposition home or self-care (01) ==
LOC: ATC 01:27
DX: E86.0 Dehydration (principal); I10 Essential (primary) hypertension; G43.819 Other migraine, intractable, without status migrainosus; G47.30 Sleep apnea, unspecified; M19.90 Unspecified osteoarthritis, unspecified site; E78.5 Hyperlipidemia, unspecified; Z79.899 Other long term (current) drug therapy; Z88.5 Allergy status to narcotic agent; Z88.6 Allergy status to analgesic agent; Z88.0 Allergy status to penicillin
CPT/HCPCS: 96360; 96361; J7120

== ENCOUNTER 2024-06-12 03:34 | Day surgery (SDC) | payer MEDICARE, OTHER ==
[2024-06-12] MEDS ORDERED: Lactated Ringer's 500 ML IV SCH (07:05)
[2024-06-12 13:59] VITALS: BP 171/95
== END 2024-06-12 16:19 | disposition home or self-care (01) ==
LOC: ATC 03:34
DX: E86.0 Dehydration (principal); I10 Essential (primary) hypertension; E78.5 Hyperlipidemia, unspecified; G43.819 Other migraine, intractable, without status migrainosus; Z79.899 Other long term (current) drug therapy
CPT/HCPCS: 96360; 96361; J7120

== ENCOUNTER 2024-06-13 04:43 | Day surgery (SDC) | payer MEDICARE, OTHER ==
[2024-06-13] MEDS ORDERED: Lactated Ringer's 1,000 ML IV SCH (07:20)
[2024-06-13 08:57] VITALS: BP 146/71
== END 2024-06-13 10:58 | disposition home or self-care (01) ==
LOC: ATC 04:43
DX: E86.0 Dehydration (principal); I10 Essential (primary) hypertension; G43.819 Other migraine, intractable, without status migrainosus; E78.5 Hyperlipidemia, unspecified; Z88.5 Allergy status to narcotic agent; Z88.8 Allergy status to other drugs, medicaments and biological substances; Z79.899 Other long term (current) drug therapy
CPT/HCPCS: 96360; 96361; J7120

== ENCOUNTER 2024-06-14 02:49 | Day surgery (SDC) | payer MEDICARE, OTHER ==
[2024-06-14] MEDS ORDERED: Lactated Ringer's 1,000 ML IV SCH (06:40)
[2024-06-14 08:53] VITALS: BP 178/86
== END 2024-06-14 11:05 | disposition home or self-care (01) ==
LOC: ATC 02:49
DX: E86.0 Dehydration (principal)
CPT/HCPCS: 96360; 96361; J7120

== ENCOUNTER 2024-06-28 03:19 | Day surgery (SDC) | payer MEDICARE, OTHER ==
[2024-06-28] MEDS ORDERED: Lactated Ringer's 1,000 ML IV SCH (06:40)
[2024-06-28 09:01] VITALS: BP 152/82
== END 2024-06-28 11:04 | disposition home or self-care (01) ==
LOC: ATC 03:19
DX: E86.0 Dehydration (principal); I10 Essential (primary) hypertension; E78.5 Hyperlipidemia, unspecified; G43.819 Other migraine, intractable, without status migrainosus; Z79.899 Other long term (current) drug therapy; Z88.0 Allergy status to penicillin; Z88.6 Allergy status to analgesic agent; Z88.5 Allergy status to narcotic agent
CPT/HCPCS: 96360; J1642; J7120

== ENCOUNTER 2024-07-02 01:43 | Day surgery (SDC) | payer MEDICARE, OTHER ==
[2024-07-02] MEDS ORDERED: Lactated Ringer's 1,000 ML IV SCH (07:05)
[2024-07-02 09:00] VITALS: BP 135/81
== END 2024-07-02 11:15 | disposition home or self-care (01) ==
LOC: ATC 01:43
DX: E86.0 Dehydration (principal); I10 Essential (primary) hypertension; E78.5 Hyperlipidemia, unspecified; G43.819 Other migraine, intractable, without status migrainosus; Z79.899 Other long term (current) drug therapy
CPT/HCPCS: 96360; 96361; J1642; J7120

== ENCOUNTER 2024-07-03 01:51 | Day surgery (SDC) | payer MEDICARE, OTHER ==
[2024-07-03] MEDS ORDERED: Lactated Ringer's 1,000 ML IV SCH (07:00)
[2024-07-03 09:50] VITALS: BP 144/68
== END 2024-07-03 12:06 | disposition home or self-care (01) ==
LOC: ATC 01:51
DX: E86.0 Dehydration (principal); I10 Essential (primary) hypertension; G43.819 Other migraine, intractable, without status migrainosus; E78.5 Hyperlipidemia, unspecified; Z79.899 Other long term (current) drug therapy
CPT/HCPCS: 96360; 96361; J1642; J7120

== ENCOUNTER 2024-07-05 01:56 | Day surgery (SDC) | payer MEDICARE, OTHER ==
[2024-07-05] MEDS ORDERED: Lactated Ringer's 1,000 ML IV SCH (06:50)
[2024-07-05 08:55] VITALS: BP 126/68
== END 2024-07-05 10:14 | disposition home or self-care (01) ==
LOC: ATC 01:56
DX: E86.0 Dehydration (principal); I10 Essential (primary) hypertension; G43.819 Other migraine, intractable, without status migrainosus; E03.9 Hypothyroidism, unspecified; E78.5 Hyperlipidemia, unspecified; Z79.890 Hormone replacement therapy; Z79.899 Other long term (current) drug therapy; Z88.5 Allergy status to narcotic agent; Z88.6 Allergy status to analgesic agent; Z88.0 Allergy status to penicillin
CPT/HCPCS: 96360; 96361; 96523; J1642

== ENCOUNTER 2024-07-06 04:32 | Day surgery (SDC) | payer MEDICARE, OTHER ==
[2024-07-06] MEDS ORDERED: Lactated Ringer's 1,000 ML IV SCH (07:10)
[2024-07-06 08:48] VITALS: BP 137/76
== END 2024-07-06 11:04 | disposition home or self-care (01) ==
LOC: ATC 04:32
DX: E86.0 Dehydration (principal); I10 Essential (primary) hypertension; G43.819 Other migraine, intractable, without status migrainosus; E78.5 Hyperlipidemia, unspecified; M19.90 Unspecified osteoarthritis, unspecified site; Z79.899 Other long term (current) drug therapy
CPT/HCPCS: 96360; 96361; J1642; J7120

== ENCOUNTER 2024-07-09 00:45 | Day surgery (SDC) | payer MEDICARE, OTHER ==
[2024-07-09] MEDS ORDERED: Lactated Ringer's 1,000 ML IV SCH (07:15)
[2024-07-09 09:22] VITALS: BP 122/61
== END 2024-07-09 11:23 | disposition home or self-care (01) ==
LOC: ATC 00:45
DX: E86.0 Dehydration (principal); I10 Essential (primary) hypertension; G47.30 Sleep apnea, unspecified; G43.819 Other migraine, intractable, without status migrainosus; M19.90 Unspecified osteoarthritis, unspecified site; E03.9 Hypothyroidism, unspecified; E78.5 Hyperlipidemia, unspecified; Z79.890 Hormone replacement therapy; Z79.899 Other long term (current) drug therapy; Z88.0 Allergy status to penicillin; Z88.5 Allergy status to narcotic agent; Z88.6 Allergy status to analgesic agent
CPT/HCPCS: 96360; 96361; J1642; J7120

== ENCOUNTER 2024-07-10 02:41 | Day surgery (SDC) | payer MEDICARE, OTHER ==
[2024-07-10] MEDS ORDERED: Lactated Ringer's 1,000 ML IV ONE (09:52)
[2024-07-10 10:01] VITALS: BP 121/69
--- NOTE | 2024-07-10 11:45 | NUR ---
PT CAME TO APPT. WITH DRESSING OFF OF MEDIPORT SITE. CONTINUES TO BE ACCESSED WITH BIOPATCH AND STERI-STRIPS INTACK. STATES THE DRESSING WAS ITCHING AND VERY RED, SO TOOK OFF LAST NIGHT. PT WISHES TO BE DEACCESSED TODAAY.
[2024-07-11] MEDS ORDERED: Lactated Ringer's 1,000 ML IV SCH (06:50)
== END 2024-07-10 12:08 | disposition home or self-care (01) ==
LOC: ATC 02:41
DX: E86.0 Dehydration (principal); R07.89 Other chest pain; I10 Essential (primary) hypertension; G43.819 Other migraine, intractable, without status migrainosus; E78.5 Hyperlipidemia, unspecified; Z79.899 Other long term (current) drug therapy
CPT/HCPCS: 96360; 96361; J1642; J7120

== ENCOUNTER 2024-07-11 03:56 | Day surgery (SDC) | payer MEDICARE, OTHER ==
[2024-07-11] MEDS ORDERED: Lactated Ringer's 1,000 ML IV SCH (07:20)
[2024-07-11 09:17] VITALS: BP 134/68
== END 2024-07-11 11:22 | disposition home or self-care (01) ==
LOC: ATC 03:56
DX: E86.0 Dehydration (principal); I10 Essential (primary) hypertension; G43.819 Other migraine, intractable, without status migrainosus; G47.30 Sleep apnea, unspecified; E78.5 Hyperlipidemia, unspecified; Z79.899 Other long term (current) drug therapy; Z88.6 Allergy status to analgesic agent; Z88.5 Allergy status to narcotic agent; Z88.0 Allergy status to penicillin
CPT/HCPCS: 96360; 96361; J1642; J7120

== ENCOUNTER 2024-07-12 05:26 | Day surgery (SDC) | payer MEDICARE, OTHER ==
[2024-07-12] MEDS ORDERED: Lactated Ringer's 1,000 ML IV SCH (06:45)
[2024-07-12 08:53] VITALS: BP 128/67
== END 2024-07-12 13:31 | disposition home or self-care (01) ==
LOC: ATC 05:26
DX: E86.0 Dehydration (principal); R07.89 Other chest pain; I10 Essential (primary) hypertension; G43.819 Other migraine, intractable, without status migrainosus; E78.5 Hyperlipidemia, unspecified; Z79.899 Other long term (current) drug therapy
CPT/HCPCS: 96360; 96361; J7120

== ENCOUNTER 2024-07-13 03:36 | Day surgery (SDC) | payer MEDICARE, OTHER ==
[2024-07-13] MEDS ORDERED: Lactated Ringer's 1,000 ML IV SCH (06:45)
[2024-07-13 08:55] VITALS: BP 129/64
== END 2024-07-13 11:05 | disposition home or self-care (01) ==
LOC: ATC 03:36
DX: E86.0 Dehydration (principal); R07.89 Other chest pain; I10 Essential (primary) hypertension; G43.819 Other migraine, intractable, without status migrainosus; E78.5 Hyperlipidemia, unspecified; Z79.899 Other long term (current) drug therapy
CPT/HCPCS: 96360; 96361; J1642; J7120

== ENCOUNTER 2024-07-16 03:23 | Day surgery (SDC) | payer MEDICARE, OTHER ==
[2024-07-16] MEDS ORDERED: Lactated Ringer's 1,000 ML IV SCH (07:05)
[2024-07-16 09:17] VITALS: BP 132/57
== END 2024-07-16 11:20 | disposition home or self-care (01) ==
LOC: ATC 03:23
DX: E86.0 Dehydration (principal); I10 Essential (primary) hypertension; G47.30 Sleep apnea, unspecified; G43.819 Other migraine, intractable, without status migrainosus; M19.90 Unspecified osteoarthritis, unspecified site; E78.5 Hyperlipidemia, unspecified; Z79.899 Other long term (current) drug therapy; Z88.5 Allergy status to narcotic agent; Z88.0 Allergy status to penicillin; Z88.6 Allergy status to analgesic agent
CPT/HCPCS: J1642; J7120

== ENCOUNTER 2024-07-19 05:10 | Day surgery (SDC) | payer MEDICARE, OTHER ==
[2024-07-19] MEDS ORDERED: Lactated Ringer's 1,000 ML IV SCH (06:50)
[2024-07-19 08:52] VITALS: BP 155/75
== END 2024-07-19 11:00 | disposition home or self-care (01) ==
LOC: ATC 05:10
DX: E86.0 Dehydration (principal); I10 Essential (primary) hypertension; G43.819 Other migraine, intractable, without status migrainosus; E78.5 Hyperlipidemia, unspecified; Z79.899 Other long term (current) drug therapy; Z88.1 Allergy status to other antibiotic agents; Z88.5 Allergy status to narcotic agent; Z88.8 Allergy status to other drugs, medicaments and biological substances
CPT/HCPCS: 96360; 96361; J1642; J7120

== ENCOUNTER 2024-07-27 00:42 | Day surgery (SDC) | payer MEDICARE, OTHER ==
[2024-07-27] MEDS ORDERED: Lactated Ringer's 1,000 ML IV SCH (07:00)
[2024-07-27 08:58] VITALS: BP 167/67
== END 2024-07-27 11:08 | disposition home or self-care (01) ==
LOC: ATC 00:42
DX: E86.0 Dehydration (principal); I10 Essential (primary) hypertension; G43.819 Other migraine, intractable, without status migrainosus; E78.5 Hyperlipidemia, unspecified; Z79.899 Other long term (current) drug therapy; Z88.0 Allergy status to penicillin; Z88.6 Allergy status to analgesic agent; Z88.5 Allergy status to narcotic agent
CPT/HCPCS: 96360; 96361; J7120

== ENCOUNTER 2024-07-30 02:23 | Day surgery (SDC) | payer MEDICARE, OTHER ==
[2024-07-30] MEDS ORDERED: Lactated Ringer's 1,000 ML IV SCH (06:50)
[2024-07-30 09:02] VITALS: BP 133/84
== END 2024-07-30 11:19 | disposition home or self-care (01) ==
LOC: ATC 02:23
DX: E86.0 Dehydration (principal); I10 Essential (primary) hypertension; G43.819 Other migraine, intractable, without status migrainosus; E78.5 Hyperlipidemia, unspecified; G47.30 Sleep apnea, unspecified; Z88.0 Allergy status to penicillin; Z88.6 Allergy status to analgesic agent; Z88.5 Allergy status to narcotic agent
CPT/HCPCS: 96360; 96361; J7120

== ENCOUNTER 2024-07-31 00:56 | Day surgery (SDC) | payer MEDICARE, OTHER ==
[2024-07-31] MEDS ORDERED: Lactated Ringer's 1,000 ML IV SCH (06:50)
[2024-07-31 09:00] VITALS: BP 132/75
== END 2024-07-31 11:02 | disposition home or self-care (01) ==
LOC: ATC 00:56
DX: E86.0 Dehydration (principal); I10 Essential (primary) hypertension; G43.819 Other migraine, intractable, without status migrainosus; E78.5 Hyperlipidemia, unspecified; Z79.899 Other long term (current) drug therapy
CPT/HCPCS: 96360; 96361; J7120

== ENCOUNTER 2024-08-01 00:49 | Day surgery (SDC) | payer MEDICARE, OTHER ==
[2024-08-01] MEDS ORDERED: Lactated Ringer's 1,000 ML IV SCH (07:00)
[2024-08-01 08:54] VITALS: BP 156/65
== END 2024-08-01 10:50 | disposition home or self-care (01) ==
LOC: ATC 00:49
DX: E86.0 Dehydration (principal); I10 Essential (primary) hypertension; E78.5 Hyperlipidemia, unspecified; G43.819 Other migraine, intractable, without status migrainosus; E03.9 Hypothyroidism, unspecified; Z79.899 Other long term (current) drug therapy
CPT/HCPCS: 96360; 96361; J7120

== ENCOUNTER 2024-08-13 04:16 | Day surgery (SDC) | payer MEDICARE, OTHER ==
[2024-08-13] MEDS ORDERED: Lactated Ringer's 1,000 ML IV SCH (07:00)
[2024-08-13 08:53] VITALS: BP 135/83
[2024-08-13] MEDS ORDERED: PRED20 PO (12:05)
[2024-08-13] MEDS ORDERED: ALBU90OI INH (12:06)
[2024-08-13] MEDS ORDERED: BENZ100A PO (12:07)
== END 2024-08-13 11:17 | disposition home or self-care (01) ==
LOC: ATC 04:16
DX: E86.0 Dehydration (principal); I10 Essential (primary) hypertension; G43.819 Other migraine, intractable, without status migrainosus; E78.5 Hyperlipidemia, unspecified; Z79.899 Other long term (current) drug therapy; Z88.0 Allergy status to penicillin; Z88.5 Allergy status to narcotic agent; Z88.6 Allergy status to analgesic agent
CPT/HCPCS: 96360; 96361; J7120

== ENCOUNTER 2024-08-14 03:21 | Day surgery (SDC) | payer MEDICARE, OTHER ==
[~2024-08-14 03:21] MED LIST changes: +ALBU90OI INH; +BENZ100A PO; +PRED20 PO
[2024-08-14] MEDS ORDERED: Lactated Ringer's 1,000 ML IV SCH ×2 (07:00→12:50)
[2024-08-14 13:52] VITALS: BP 129/58
== END 2024-08-14 16:07 | disposition home or self-care (01) ==
LOC: ATC 03:21
DX: E86.0 Dehydration (principal); K52.9 Noninfective gastroenteritis and colitis, unspecified; Z79.899 Other long term (current) drug therapy; Z88.0 Allergy status to penicillin; Z88.5 Allergy status to narcotic agent; Z88.6 Allergy status to analgesic agent
CPT/HCPCS: 96360; 96361; J7120

== ENCOUNTER 2024-08-15 03:37 | Day surgery (SDC) | payer MEDICARE, OTHER ==
[2024-08-15] MEDS ORDERED: Lactated Ringer's 1,000 ML IV SCH (07:05)
[2024-08-15 08:50] VITALS: BP 153/79
== END 2024-08-15 11:10 | disposition home or self-care (01) ==
LOC: ATC 03:37
DX: E86.0 Dehydration (principal); K52.9 Noninfective gastroenteritis and colitis, unspecified; M25.551 Pain in right hip; E03.9 Hypothyroidism, unspecified; E78.5 Hyperlipidemia, unspecified; Z79.899 Other long term (current) drug therapy
CPT/HCPCS: 96360; J7120

== ENCOUNTER 2024-08-16 02:41 | Day surgery (SDC) | payer MEDICARE, OTHER ==
[2024-08-16] MEDS ORDERED: Lactated Ringer's 1,000 ML IV SCH (07:10)
[2024-08-16 08:54] VITALS: BP 176/64
== END 2024-08-16 10:59 | disposition home or self-care (01) ==
LOC: ATC 02:41
DX: E86.0 Dehydration (principal); E03.9 Hypothyroidism, unspecified; E78.5 Hyperlipidemia, unspecified; G43.819 Other migraine, intractable, without status migrainosus; G89.29 Other chronic pain; I10 Essential (primary) hypertension; G47.30 Sleep apnea, unspecified; K21.9 Gastro-esophageal reflux disease without esophagitis; Z79.899 Other long term (current) drug therapy
CPT/HCPCS: 96360; 96361; J7120

== ENCOUNTER 2024-08-18 06:45 | Day surgery (SDC) | payer MEDICARE, OTHER ==
[2024-08-18] MEDS ORDERED: Lactated Ringer's 1,000 ML IV SCH (06:50)
[2024-08-18 09:05] VITALS: BP 142/70
== END 2024-08-18 11:16 | disposition home or self-care (01) ==
LOC: ATC 06:45
DX: E86.0 Dehydration (principal); K52.9 Noninfective gastroenteritis and colitis, unspecified; Z88.8 Allergy status to other drugs, medicaments and biological substances; Z88.5 Allergy status to narcotic agent
CPT/HCPCS: 96360; 96361; J1642; J7120

== ENCOUNTER 2024-08-28 04:00 | Day surgery (SDC) | payer MEDICARE, OTHER ==
[2024-08-28] MEDS ORDERED: Lactated Ringer's 1,000 ML IV SCH (06:55)
[2024-08-28 09:17] VITALS: BP 128/68
== END 2024-08-28 11:26 | disposition home or self-care (01) ==
LOC: ATC 04:00
DX: E86.0 Dehydration (principal); Z79.899 Other long term (current) drug therapy
CPT/HCPCS: 96360; 96361; J1642; J7120

== ENCOUNTER 2024-08-30 00:52 | Day surgery (SDC) | payer MEDICARE, OTHER ==
[2024-08-30] MEDS ORDERED: Lactated Ringer's 1,000 ML IV SCH (06:50)
[2024-08-30 08:56] VITALS: BP 128/77
== END 2024-08-30 11:18 | disposition home or self-care (01) ==
LOC: ATC 00:52
DX: E86.0 Dehydration (principal); K52.9 Noninfective gastroenteritis and colitis, unspecified; G89.29 Other chronic pain; R10.9 Unspecified abdominal pain; E03.9 Hypothyroidism, unspecified; E78.5 Hyperlipidemia, unspecified; Z79.890 Hormone replacement therapy; Z79.1 Long term (current) use of non-steroidal anti-inflammatories (NSAID); Z79.899 Other long term (current) drug therapy
CPT/HCPCS: 96360; 96361; J1642; J7120

== ENCOUNTER 2024-08-31 06:54 | Day surgery (SDC) | payer MEDICARE, OTHER ==
[~2024-08-31 06:54] MED LIST changes: +Lactated Ringer's 1,000 ML IV SCH
[2024-08-31 08:55] VITALS: BP 135/70
== END 2024-08-31 11:06 | disposition home or self-care (01) ==
LOC: ATC 06:54
DX: E86.0 Dehydration (principal); K52.9 Noninfective gastroenteritis and colitis, unspecified; M25.551 Pain in right hip; E78.5 Hyperlipidemia, unspecified; K21.9 Gastro-esophageal reflux disease without esophagitis; Z79.899 Other long term (current) drug therapy; Z88.0 Allergy status to penicillin; Z88.6 Allergy status to analgesic agent; Z88.5 Allergy status to narcotic agent; Z88.8 Allergy status to other drugs, medicaments and biological substances
CPT/HCPCS: 96360; 96361; J1642; J7120

== ENCOUNTER 2024-09-03 03:57 | Day surgery (SDC) | payer MEDICARE, OTHER ==
[~2024-09-03 03:57] MED LIST changes: -Lactated Ringer's 1,000 ML IV SCH
[2024-09-03] MEDS ORDERED: Lactated Ringer's 1,000 ML IV SCH (07:05)
[2024-09-03 08:54] VITALS: BP 120/66
== END 2024-09-03 11:14 | disposition home or self-care (01) ==
LOC: ATC 03:57
DX: E86.0 Dehydration (principal); E03.9 Hypothyroidism, unspecified; E78.5 Hyperlipidemia, unspecified; G47.30 Sleep apnea, unspecified; K21.9 Gastro-esophageal reflux disease without esophagitis; Z79.899 Other long term (current) drug therapy
CPT/HCPCS: 96360; 96361; J1642; J7120

== ENCOUNTER 2024-09-04 01:05 | Day surgery (SDC) | payer MEDICARE, OTHER ==
[2024-09-04] MEDS ORDERED: Lactated Ringer's 1,000 ML IV SCH (06:50)
[2024-09-04 13:51] VITALS: BP 152/75
== END 2024-09-04 16:06 | disposition home or self-care (01) ==
LOC: ATC 01:05
DX: E86.0 Dehydration (principal); G89.29 Other chronic pain; R10.9 Unspecified abdominal pain; K52.9 Noninfective gastroenteritis and colitis, unspecified; I10 Essential (primary) hypertension; E78.5 Hyperlipidemia, unspecified; Z79.899 Other long term (current) drug therapy; Z88.5 Allergy status to narcotic agent; Z88.6 Allergy status to analgesic agent; Z88.0 Allergy status to penicillin
CPT/HCPCS: 96360; 96361; J1642; J7120

== ENCOUNTER 2024-09-06 04:10 | Day surgery (SDC) | payer MEDICARE, OTHER ==
[2024-09-06] MEDS ORDERED: Lactated Ringer's 1,000 ML IV SCH (06:50)
[2024-09-06 09:24] VITALS: BP 128/60
== END 2024-09-06 11:46 | disposition home or self-care (01) ==
LOC: ATC 04:10
DX: E86.0 Dehydration (principal); K52.9 Noninfective gastroenteritis and colitis, unspecified; E78.5 Hyperlipidemia, unspecified; G89.29 Other chronic pain; R10.9 Unspecified abdominal pain; Z79.899 Other long term (current) drug therapy; Z88.0 Allergy status to penicillin; Z88.5 Allergy status to narcotic agent; Z88.6 Allergy status to analgesic agent; Z88.8 Allergy status to other drugs, medicaments and biological substances
CPT/HCPCS: 96360; 96361; J7120

== ENCOUNTER 2024-09-07 05:11 | Day surgery (SDC) | payer MEDICARE, OTHER ==
[2024-09-07] MEDS ORDERED: Lactated Ringer's 1,000 ML IV SCH (06:35)
[2024-09-07 08:32] VITALS: BP 149/82
== END 2024-09-07 10:40 | disposition home or self-care (01) ==
LOC: ATC 05:11
DX: E86.0 Dehydration (principal); K52.9 Noninfective gastroenteritis and colitis, unspecified; G89.29 Other chronic pain; R10.9 Unspecified abdominal pain; E78.5 Hyperlipidemia, unspecified; Z79.899 Other long term (current) drug therapy; Z88.0 Allergy status to penicillin; Z88.5 Allergy status to narcotic agent; Z88.6 Allergy status to analgesic agent
CPT/HCPCS: 96360; J7120

== ENCOUNTER 2024-09-10 03:50 | Day surgery (SDC) | payer MEDICARE, OTHER ==
[2024-09-10] MEDS ORDERED: Lactated Ringer's 1,000 ML IV SCH (06:55)
[2024-09-10 08:54] VITALS: BP 123/71
== END 2024-09-10 11:06 | disposition home or self-care (01) ==
LOC: ATC 03:50
DX: E86.0 Dehydration (principal); Z79.899 Other long term (current) drug therapy
CPT/HCPCS: 96360; 96361; J1642; J7120

== ENCOUNTER 2024-09-11 07:27 | Day surgery (SDC) | payer MEDICARE, OTHER ==
[~2024-09-11 07:27] MED LIST changes: +Lactated Ringer's 1,000 ML IV SCH
[2024-09-11 08:55] VITALS: BP 160/73
== END 2024-09-11 11:03 | disposition home or self-care (01) ==
LOC: ATC 07:27
DX: E86.0 Dehydration (principal); K52.9 Noninfective gastroenteritis and colitis, unspecified; G89.29 Other chronic pain; R10.9 Unspecified abdominal pain; E78.5 Hyperlipidemia, unspecified; Z79.899 Other long term (current) drug therapy; Z88.0 Allergy status to penicillin; Z88.5 Allergy status to narcotic agent; Z88.6 Allergy status to analgesic agent; Z88.8 Allergy status to other drugs, medicaments and biological substances
CPT/HCPCS: 96360; J1642; J7120

== ENCOUNTER 2024-09-12 03:37 | Day surgery (SDC) | payer MEDICARE, OTHER ==
[~2024-09-12 03:37] MED LIST changes: -Lactated Ringer's 1,000 ML IV SCH
[2024-09-12] MEDS ORDERED: Lactated Ringer's 1,000 ML IV SCH (07:10)
[2024-09-12 09:05] VITALS: BP 141/77
== END 2024-09-12 11:55 | disposition home or self-care (01) ==
LOC: ATC 03:37
DX: E86.0 Dehydration (principal); K52.9 Noninfective gastroenteritis and colitis, unspecified; G89.29 Other chronic pain; R10.9 Unspecified abdominal pain; E78.5 Hyperlipidemia, unspecified; Z79.899 Other long term (current) drug therapy; Z88.0 Allergy status to penicillin; Z88.5 Allergy status to narcotic agent; Z88.6 Allergy status to analgesic agent; Z88.8 Allergy status to other drugs, medicaments and biological substances
CPT/HCPCS: 96360; 96361; J7120

== ENCOUNTER 2024-09-13 01:37 | Day surgery (SDC) | payer MEDICARE, OTHER ==
[2024-09-13] MEDS ORDERED: Lactated Ringer's 1,000 ML IV SCH (06:55)
[2024-09-13 08:56] VITALS: BP 149/75
== END 2024-09-13 11:08 | disposition home or self-care (01) ==
LOC: ATC 01:37
DX: E86.0 Dehydration (principal); E03.9 Hypothyroidism, unspecified; E78.5 Hyperlipidemia, unspecified; I10 Essential (primary) hypertension; G47.30 Sleep apnea, unspecified; M19.90 Unspecified osteoarthritis, unspecified site; K21.9 Gastro-esophageal reflux disease without esophagitis; Z88.1 Allergy status to other antibiotic agents; Z88.6 Allergy status to analgesic agent; Z88.5 Allergy status to narcotic agent; Z88.8 Allergy status to other drugs, medicaments and biological substances; Z79.890 Hormone replacement therapy; Z79.899 Other long term (current) drug therapy
CPT/HCPCS: 96360; 96361; J7120

== ENCOUNTER 2024-09-14 07:22 | Day surgery (SDC) | payer MEDICARE, OTHER ==
[~2024-09-14 07:22] MED LIST changes: +Lactated Ringer's 1,000 ML IV SCH
[2024-09-14 08:57] VITALS: BP 143/87
--- NOTE | 2024-09-14 08:57 | NUR ---
Pt states she removed her own peripheral IV at home last night.
== END 2024-09-14 11:13 | disposition home or self-care (01) ==
LOC: ATC 07:22
DX: E86.0 Dehydration (principal); G89.29 Other chronic pain; R10.9 Unspecified abdominal pain; Z79.899 Other long term (current) drug therapy
CPT/HCPCS: 96360; 96361; J1642; J7120

== ENCOUNTER 2024-09-17 03:54 | Day surgery (SDC) | payer MEDICARE, OTHER ==
[~2024-09-17 03:54] MED LIST changes: -Lactated Ringer's 1,000 ML IV SCH
[2024-09-17] MEDS ORDERED: Lactated Ringer's 1,000 ML IV SCH (06:00)
[2024-09-17 09:00] VITALS: BP 130/57
== END 2024-09-17 11:10 | disposition home or self-care (01) ==
LOC: ATC 03:54
DX: E86.0 Dehydration (principal); G89.29 Other chronic pain; R10.9 Unspecified abdominal pain; K52.9 Noninfective gastroenteritis and colitis, unspecified
CPT/HCPCS: 96360; 96361; J1642; J7120

== ENCOUNTER 2024-09-18 07:08 | Day surgery (SDC) | payer MEDICARE, OTHER ==
[~2024-09-18 07:08] MED LIST changes: +Lactated Ringer's 1,000 ML IV SCH
[2024-09-18 09:04] VITALS: BP 153/56
== END 2024-09-18 11:02 | disposition home or self-care (01) ==
LOC: ATC 07:08
DX: E86.0 Dehydration (principal); K52.9 Noninfective gastroenteritis and colitis, unspecified; G89.29 Other chronic pain; R10.9 Unspecified abdominal pain; E78.5 Hyperlipidemia, unspecified; Z79.899 Other long term (current) drug therapy; Z88.0 Allergy status to penicillin; Z88.6 Allergy status to analgesic agent; Z88.5 Allergy status to narcotic agent; Z88.8 Allergy status to other drugs, medicaments and biological substances
CPT/HCPCS: 96360; 96361; J1642; J7120

== ENCOUNTER 2024-09-19 01:15 | Day surgery (SDC) | payer MEDICARE, OTHER ==
[~2024-09-19 01:15] MED LIST changes: -Lactated Ringer's 1,000 ML IV SCH
[2024-09-19] MEDS ORDERED: Lactated Ringer's 1,000 ML IV SCH (07:15)
[2024-09-19 09:35] VITALS: BP 145/71
== END 2024-09-19 11:27 | disposition home or self-care (01) ==
LOC: ATC 01:15
DX: E86.0 Dehydration (principal)
CPT/HCPCS: 96360; 96361; J7120

== ENCOUNTER 2024-09-20 02:36 | Day surgery (SDC) | payer MEDICARE, OTHER ==
[2024-09-20] MEDS ORDERED: Lactated Ringer's 1,000 ML IV SCH (07:20)
[2024-09-20 09:05] VITALS: BP 139/69
== END 2024-09-20 11:18 | disposition home or self-care (01) ==
LOC: ATC 02:36
DX: E86.0 Dehydration (principal); K52.9 Noninfective gastroenteritis and colitis, unspecified; G89.29 Other chronic pain; R10.9 Unspecified abdominal pain; E78.5 Hyperlipidemia, unspecified; Z88.0 Allergy status to penicillin; Z88.5 Allergy status to narcotic agent; Z88.6 Allergy status to analgesic agent; Z88.8 Allergy status to other drugs, medicaments and biological substances
CPT/HCPCS: 96360; 96361; J7120

== ENCOUNTER 2024-09-21 03:35 | Day surgery (SDC) | payer MEDICARE, OTHER ==
[2024-09-21] MEDS ORDERED: Lactated Ringer's 1,000 ML IV SCH (06:50)
[2024-09-21 09:08] VITALS: BP 153/75
== END 2024-09-21 11:23 | disposition home or self-care (01) ==
LOC: ATC 03:35
DX: E86.0 Dehydration (principal)
CPT/HCPCS: 96360; 96361; J1642; J7120

== ENCOUNTER 2024-09-24 03:52 | Day surgery (SDC) | payer MEDICARE, OTHER ==
[2024-09-24] MEDS ORDERED: Lactated Ringer's 1,000 ML IV SCH (07:20)
[2024-09-24 09:10] VITALS: BP 124/65
== END 2024-09-24 11:16 | disposition home or self-care (01) ==
LOC: ATC 03:52
DX: E86.0 Dehydration (principal)
CPT/HCPCS: 96360; 96361; J1642; J7120

== ENCOUNTER 2024-09-26 06:14 | Day surgery (SDC) | payer MEDICARE, OTHER ==
[2024-09-26] MEDS ORDERED: Lactated Ringer's 500 ML IV SCH (07:25)
[2024-09-26 09:05] VITALS: BP 135/69
== END 2024-09-26 11:10 | disposition home or self-care (01) ==
LOC: ATC 06:14
DX: E86.0 Dehydration (principal); K52.9 Noninfective gastroenteritis and colitis, unspecified; G89.29 Other chronic pain; R10.9 Unspecified abdominal pain; E78.5 Hyperlipidemia, unspecified; Z79.899 Other long term (current) drug therapy; Z88.0 Allergy status to penicillin; Z88.6 Allergy status to analgesic agent; Z88.5 Allergy status to narcotic agent; Z88.8 Allergy status to other drugs, medicaments and biological substances
CPT/HCPCS: 96360; 96361; J1642; J7120

== ENCOUNTER 2024-09-27 05:09 | Day surgery (SDC) | payer MEDICARE, OTHER ==
[2024-09-27] MEDS ORDERED: Lactated Ringer's 1,000 ML IV SCH (06:50)
[2024-09-27 08:50] VITALS: BP 129/75
== END 2024-09-27 11:05 | disposition home or self-care (01) ==
LOC: ATC 05:09
DX: E86.0 Dehydration (principal); K52.9 Noninfective gastroenteritis and colitis, unspecified; G89.29 Other chronic pain; R10.9 Unspecified abdominal pain; E78.5 Hyperlipidemia, unspecified; Z79.899 Other long term (current) drug therapy; Z88.0 Allergy status to penicillin; Z88.5 Allergy status to narcotic agent; Z88.6 Allergy status to analgesic agent; Z88.8 Allergy status to other drugs, medicaments and biological substances
CPT/HCPCS: 96360; 96361; J1642; J7120

== ENCOUNTER 2024-09-28 02:52 | Day surgery (SDC) | payer MEDICARE, OTHER ==
[2024-09-28] MEDS ORDERED: Lactated Ringer's 1,000 ML IV SCH (06:40)
[2024-09-28 08:52] VITALS: BP 148/70
== END 2024-09-28 11:08 | disposition home or self-care (01) ==
LOC: ATC 02:52
DX: E86.0 Dehydration (principal)
CPT/HCPCS: 96360; 96361; J1642; J7120

== ENCOUNTER 2024-10-01 02:45 | Day surgery (SDC) | payer MEDICARE, OTHER ==
[2024-10-01] MEDS ORDERED: Lactated Ringer's 1,000 ML IV SCH (06:55)
[2024-10-01 08:52] VITALS: BP 116/70
== END 2024-10-01 11:17 | disposition home or self-care (01) ==
LOC: ATC 02:45
DX: E86.0 Dehydration (principal); K52.9 Noninfective gastroenteritis and colitis, unspecified; G89.29 Other chronic pain; R10.9 Unspecified abdominal pain; E78.5 Hyperlipidemia, unspecified; Z79.899 Other long term (current) drug therapy; Z88.0 Allergy status to penicillin; Z88.5 Allergy status to narcotic agent; Z88.6 Allergy status to analgesic agent; Z88.8 Allergy status to other drugs, medicaments and biological substances
CPT/HCPCS: 96360; 96361; J1642; J7120

== ENCOUNTER 2024-10-02 08:42 | Day surgery (SDC) | payer MEDICARE, OTHER ==
[~2024-10-02 08:42] MED LIST changes: +Lactated Ringer's 1,000 ML IV SCH
[2024-10-02 09:13] VITALS: BP 131/73
== END 2024-10-02 10:05 | disposition home or self-care (01) ==
LOC: ATC 08:42
DX: E86.0 Dehydration (principal); K52.9 Noninfective gastroenteritis and colitis, unspecified; G89.29 Other chronic pain; R10.9 Unspecified abdominal pain; E78.5 Hyperlipidemia, unspecified; Z88.0 Allergy status to penicillin; Z88.5 Allergy status to narcotic agent; Z88.6 Allergy status to analgesic agent; Z88.8 Allergy status to other drugs, medicaments and biological substances
CPT/HCPCS: 96360; 96361; J1642; J7120

== ENCOUNTER 2024-10-03 05:28 | Day surgery (SDC) | payer MEDICARE, OTHER ==
[~2024-10-03 05:28] MED LIST changes: -Lactated Ringer's 1,000 ML IV SCH
[2024-10-03] MEDS ORDERED: Lactated Ringer's 1,000 ML IV SCH (06:55)
[2024-10-03 08:57] VITALS: BP 111/72
== END 2024-10-03 11:10 | disposition home or self-care (01) ==
LOC: ATC 05:28
DX: E86.0 Dehydration (principal); K52.9 Noninfective gastroenteritis and colitis, unspecified; G89.29 Other chronic pain; R10.9 Unspecified abdominal pain; E78.5 Hyperlipidemia, unspecified; Z79.899 Other long term (current) drug therapy; Z88.0 Allergy status to penicillin; Z88.5 Allergy status to narcotic agent; Z88.6 Allergy status to analgesic agent; Z88.8 Allergy status to other drugs, medicaments and biological substances
CPT/HCPCS: 96360; 96361; J1642; J7120

== ENCOUNTER 2024-10-04 05:30 | Day surgery (SDC) | payer MEDICARE, OTHER ==
[2024-10-04] MEDS ORDERED: Lactated Ringer's 1,000 ML IV SCH (07:00)
[2024-10-04 08:55] VITALS: BP 142/79
== END 2024-10-04 11:10 | disposition home or self-care (01) ==
LOC: ATC 05:30
DX: E86.0 Dehydration (principal); K52.9 Noninfective gastroenteritis and colitis, unspecified; G89.29 Other chronic pain; R10.9 Unspecified abdominal pain; E78.5 Hyperlipidemia, unspecified; Z79.899 Other long term (current) drug therapy; Z88.0 Allergy status to penicillin; Z88.5 Allergy status to narcotic agent; Z88.6 Allergy status to analgesic agent; Z88.8 Allergy status to other drugs, medicaments and biological substances
CPT/HCPCS: 96360; 96361; J1642; J7120

== ENCOUNTER 2024-10-05 03:36 | Day surgery (SDC) | payer MEDICARE, OTHER ==
[2024-10-05] MEDS ORDERED: Lactated Ringer's 1,000 ML IV SCH (06:50)
[2024-10-05 09:25] VITALS: BP 137/62
== END 2024-10-05 11:35 | disposition home or self-care (01) ==
LOC: ATC 03:36
DX: E86.0 Dehydration (principal)
CPT/HCPCS: 96360; 96361; J1642; J7120

== ENCOUNTER 2024-10-08 07:49 | Day surgery (SDC) | payer MEDICARE, OTHER ==
[~2024-10-08 07:49] MED LIST changes: +Lactated Ringer's 1,000 ML IV SCH
[2024-10-08 09:15] VITALS: BP 136/59
== END 2024-10-08 10:57 | disposition home or self-care (01) ==
LOC: ATC 07:49
DX: E86.0 Dehydration (principal); I10 Essential (primary) hypertension; E03.8 Other specified hypothyroidism; Z79.890 Hormone replacement therapy; Z79.899 Other long term (current) drug therapy; Z88.1 Allergy status to other antibiotic agents; Z88.8 Allergy status to other drugs, medicaments and biological substances; Z88.5 Allergy status to narcotic agent
CPT/HCPCS: 96360; 96361; J1642; J7120

== ENCOUNTER 2024-10-09 01:23 | Day surgery (SDC) | payer MEDICARE, OTHER ==
[~2024-10-09 01:23] MED LIST changes: -Lactated Ringer's 1,000 ML IV SCH
[2024-10-09] MEDS ORDERED: Lactated Ringer's 1,000 ML IV SCH (07:00)
[2024-10-09 08:55] VITALS: BP 141/97
== END 2024-10-09 11:07 | disposition home or self-care (01) ==
LOC: ATC 01:23
DX: E86.0 Dehydration (principal); E78.5 Hyperlipidemia, unspecified; K21.9 Gastro-esophageal reflux disease without esophagitis
CPT/HCPCS: 96360; 96361; J1642; J7120

== ENCOUNTER 2024-10-10 05:43 | Day surgery (SDC) | payer MEDICARE, OTHER ==
[2024-10-10] MEDS ORDERED: Lactated Ringer's 1,000 ML IV SCH (06:50)
[2024-10-10 09:05] VITALS: BP 139/72
== END 2024-10-10 11:19 | disposition home or self-care (01) ==
LOC: ATC 05:43
DX: E86.0 Dehydration (principal); K21.9 Gastro-esophageal reflux disease without esophagitis; G47.30 Sleep apnea, unspecified; E78.5 Hyperlipidemia, unspecified; Z79.899 Other long term (current) drug therapy
CPT/HCPCS: 96360; 96361; J1642; J7120

== ENCOUNTER 2024-10-11 01:14 | Day surgery (SDC) | payer MEDICARE, OTHER ==
[2024-10-11] MEDS ORDERED: Lactated Ringer's 1,000 ML IV SCH (06:40)
[2024-10-11 09:01] VITALS: BP 149/69
== END 2024-10-11 11:14 | disposition home or self-care (01) ==
LOC: ATC 01:14
DX: E86.0 Dehydration (principal); E03.8 Other specified hypothyroidism; E78.5 Hyperlipidemia, unspecified; I10 Essential (primary) hypertension; G47.30 Sleep apnea, unspecified; K21.9 Gastro-esophageal reflux disease without esophagitis; Z79.890 Hormone replacement therapy; Z79.899 Other long term (current) drug therapy
CPT/HCPCS: 96360; 96361; J1642; J7120

== ENCOUNTER 2024-10-12 03:34 | Day surgery (SDC) | payer MEDICARE, OTHER ==
[~2024-10-12 03:34] MED LIST changes: +ESTRADIOL1 MG PO; -Estradiol0.5 MG PO
[2024-10-12] MEDS ORDERED: Lactated Ringer's 1,000 ML IV SCH (06:30)
[2024-10-12 07:41] VITALS: BP 143/75
== END 2024-10-12 09:53 | disposition home or self-care (01) ==
LOC: ATC 03:34
DX: E86.0 Dehydration (principal); E03.9 Hypothyroidism, unspecified; E78.5 Hyperlipidemia, unspecified; R10.9 Unspecified abdominal pain; Z90.49 Acquired absence of other specified parts of digestive tract; K55.1 Chronic vascular disorders of intestine; I77.4 Celiac artery compression syndrome; I70.0 Atherosclerosis of aorta
CPT/HCPCS: 74174; 96360; 96361; J1642; J7120; Q9967

== ENCOUNTER 2024-10-15 01:09 | Day surgery (SDC) | payer MEDICARE, OTHER ==
[2024-10-15] MEDS ORDERED: Lactated Ringer's 1,000 ML IV SCH (06:55)
[2024-10-15 09:06] VITALS: BP 113/69
[2024-10-16] MEDS ORDERED: VITAMIN D5000 UNIT PO (16:23)
[2024-10-16] MEDS ORDERED: ZYRTEC10 M2 PO (16:23)
[2024-10-16] MEDS ORDERED: FERSU300 PO (16:26)
== END 2024-10-15 11:15 | disposition home or self-care (01) ==
LOC: ATC 01:09
DX: E86.0 Dehydration (principal); I10 Essential (primary) hypertension; E78.5 Hyperlipidemia, unspecified; G43.819 Other migraine, intractable, without status migrainosus; E03.8 Other specified hypothyroidism; K21.9 Gastro-esophageal reflux disease without esophagitis; Z79.899 Other long term (current) drug therapy; Z88.1 Allergy status to other antibiotic agents; Z88.8 Allergy status to other drugs, medicaments and biological substances; Z88.5 Allergy status to narcotic agent
CPT/HCPCS: 96360; 96361; J1642; J7120

== ENCOUNTER 2024-10-16 08:50 | Day surgery (SDC) | payer MEDICARE, OTHER ==
[~2024-10-16 08:50] MED LIST changes: +Lactated Ringer's 1,000 ML IV SCH
[2024-10-16 09:27] VITALS: BP 145/65
[2024-10-16] MEDS ORDERED: VITAMIN D5000 UNIT PO (16:23)
[2024-10-16] MEDS ORDERED: ZYRTEC10 M2 PO (16:23)
[2024-10-16] MEDS ORDERED: FERSU300 PO (16:26)
== END 2024-10-16 11:38 | disposition home or self-care (01) ==
LOC: ATC 08:50
DX: E86.0 Dehydration (principal); K52.9 Noninfective gastroenteritis and colitis, unspecified; G89.29 Other chronic pain; R10.9 Unspecified abdominal pain; E78.5 Hyperlipidemia, unspecified; G43.819 Other migraine, intractable, without status migrainosus; E03.9 Hypothyroidism, unspecified; K21.9 Gastro-esophageal reflux disease without esophagitis; Z79.899 Other long term (current) drug therapy; Z88.0 Allergy status to penicillin; Z88.5 Allergy status to narcotic agent; Z88.6 Allergy status to analgesic agent; Z90.710 Acquired absence of both cervix and uterus; Z98.84 Bariatric surgery status
CPT/HCPCS: 96360; 96361; J1642; J7120

== ENCOUNTER 2024-10-18 00:24 | Day surgery (SDC) | payer MEDICARE, OTHER ==
[~2024-10-18 00:24] MED LIST changes: +FERSU300 PO; -Lactated Ringer's 1,000 ML IV SCH; +VITAMIN D5000 UNIT PO; +ZYRTEC10 M2 PO
[2024-10-18] MEDS ORDERED: Lactated Ringer's 1,000 ML IV SCH (06:45)
[2024-10-18 08:58] VITALS: BP 131/71
== END 2024-10-18 11:12 | disposition home or self-care (01) ==
LOC: ATC 00:24
DX: E86.0 Dehydration (principal); E78.5 Hyperlipidemia, unspecified; E03.9 Hypothyroidism, unspecified; G89.29 Other chronic pain; G47.30 Sleep apnea, unspecified; M19.90 Unspecified osteoarthritis, unspecified site; Z79.899 Other long term (current) drug therapy
CPT/HCPCS: 96360; 96361; J1642; J7120

== ENCOUNTER 2024-10-22 01:24 | Day surgery (SDC) | payer MEDICARE, OTHER ==
[2024-10-22] MEDS ORDERED: Lactated Ringer's 1,000 ML IV SCH (06:55)
[2024-10-22 08:47] VITALS: BP 138/77
== END 2024-10-22 23:00 | disposition home or self-care (01) ==
LOC: ATC 01:24
DX: E86.0 Dehydration (principal); I10 Essential (primary) hypertension; E03.9 Hypothyroidism, unspecified; E78.5 Hyperlipidemia, unspecified; G47.30 Sleep apnea, unspecified; K21.9 Gastro-esophageal reflux disease without esophagitis; Z79.890 Hormone replacement therapy; Z79.899 Other long term (current) drug therapy
CPT/HCPCS: 96360; 96361; J1642; J7120

== ENCOUNTER 2024-10-23 00:35 | Day surgery (SDC) | payer MEDICARE, OTHER ==
[2024-10-23] MEDS ORDERED: Lactated Ringer's 500 ML IV SCH (07:00)
[2024-10-23 08:52] VITALS: BP 138/58
== END 2024-10-23 10:47 | disposition home or self-care (01) ==
LOC: ATC 00:35
DX: E86.0 Dehydration (principal); E03.8 Other specified hypothyroidism; E78.5 Hyperlipidemia, unspecified; G89.29 Other chronic pain; G47.30 Sleep apnea, unspecified; K21.9 Gastro-esophageal reflux disease without esophagitis; Z79.899 Other long term (current) drug therapy
CPT/HCPCS: 96360; 96361; J1642; J7120

== ENCOUNTER 2024-10-24 00:08 | Day surgery (SDC) | payer MEDICARE, OTHER ==
[2024-10-24] MEDS ORDERED: Lactated Ringer's 1,000 ML IV SCH (07:10)
[2024-10-24 08:55] VITALS: BP 148/77
== END 2024-10-24 11:15 | disposition home or self-care (01) ==
LOC: ATC 00:08
DX: E86.0 Dehydration (principal); K52.9 Noninfective gastroenteritis and colitis, unspecified; G89.29 Other chronic pain; R10.9 Unspecified abdominal pain; I10 Essential (primary) hypertension; E03.9 Hypothyroidism, unspecified; K21.9 Gastro-esophageal reflux disease without esophagitis; G47.30 Sleep apnea, unspecified; E78.5 Hyperlipidemia, unspecified; M19.90 Unspecified osteoarthritis, unspecified site; G43.819 Other migraine, intractable, without status migrainosus; Z79.890 Hormone replacement therapy; Z79.899 Other long term (current) drug therapy; Z88.0 Allergy status to penicillin; Z88.5 Allergy status to narcotic agent; Z88.6 Allergy status to analgesic agent; Z88.8 Allergy status to other drugs, medicaments and biological substances; Z98.84 Bariatric surgery status
CPT/HCPCS: 96360; 96361; J1642; J7120

== ENCOUNTER 2024-10-25 02:30 | Day surgery (SDC) | payer MEDICARE, OTHER ==
[2024-10-25] MEDS ORDERED: Lactated Ringer's 1,000 ML IV SCH (07:00)
[2024-10-25 08:58] VITALS: BP 135/72
== END 2024-10-25 11:13 | disposition home or self-care (01) ==
LOC: ATC 02:30
DX: E86.0 Dehydration (principal); K52.9 Noninfective gastroenteritis and colitis, unspecified; G89.29 Other chronic pain; R10.9 Unspecified abdominal pain; E03.9 Hypothyroidism, unspecified; E78.5 Hyperlipidemia, unspecified; I10 Essential (primary) hypertension; G43.819 Other migraine, intractable, without status migrainosus; Z79.890 Hormone replacement therapy; Z79.899 Other long term (current) drug therapy; Z88.5 Allergy status to narcotic agent; Z88.0 Allergy status to penicillin; Z88.6 Allergy status to analgesic agent; Z88.8 Allergy status to other drugs, medicaments and biological substances; Z98.84 Bariatric surgery status; Z90.49 Acquired absence of other specified parts of digestive tract; Z90.710 Acquired absence of both cervix and uterus
CPT/HCPCS: 96360; 96361; J1642; J7120

== ENCOUNTER 2024-10-26 03:45 | Day surgery (SDC) | payer MEDICARE, OTHER ==
[2024-10-26] MEDS ORDERED: Lactated Ringer's 1,000 ML IV SCH (06:45)
[2024-10-26 09:10] VITALS: BP 154/79
== END 2024-10-26 11:20 | disposition home or self-care (01) ==
LOC: ATC 03:45
DX: E86.0 Dehydration (principal); K52.9 Noninfective gastroenteritis and colitis, unspecified; G89.29 Other chronic pain; R10.9 Unspecified abdominal pain; I10 Essential (primary) hypertension; E03.9 Hypothyroidism, unspecified; M19.90 Unspecified osteoarthritis, unspecified site; E78.5 Hyperlipidemia, unspecified; G43.819 Other migraine, intractable, without status migrainosus; Z79.890 Hormone replacement therapy; Z79.899 Other long term (current) drug therapy; Z88.5 Allergy status to narcotic agent; Z88.0 Allergy status to penicillin; Z88.6 Allergy status to analgesic agent; Z88.8 Allergy status to other drugs, medicaments and biological substances; Z98.84 Bariatric surgery status; Z90.49 Acquired absence of other specified parts of digestive tract
CPT/HCPCS: 96360; 96361; J1642; J7120

== ENCOUNTER 2024-10-29 02:17 | Day surgery (SDC) | payer MEDICARE, OTHER ==
[2024-10-29] MEDS ORDERED: Lactated Ringer's 1,000 ML IV SCH (07:00)
[2024-10-29 09:22] VITALS: BP 123/79
== END 2024-10-29 11:38 | disposition home or self-care (01) ==
LOC: ATC 02:17
DX: E86.0 Dehydration (principal); K52.9 Noninfective gastroenteritis and colitis, unspecified; G89.29 Other chronic pain; R10.9 Unspecified abdominal pain; I10 Essential (primary) hypertension; M19.90 Unspecified osteoarthritis, unspecified site; E78.5 Hyperlipidemia, unspecified; G43.819 Other migraine, intractable, without status migrainosus; E03.9 Hypothyroidism, unspecified; K21.9 Gastro-esophageal reflux disease without esophagitis; Z79.890 Hormone replacement therapy; Z79.899 Other long term (current) drug therapy; Z88.0 Allergy status to penicillin; Z88.5 Allergy status to narcotic agent; Z88.8 Allergy status to other drugs, medicaments and biological substances; Z90.49 Acquired absence of other specified parts of digestive tract; Z90.710 Acquired absence of both cervix and uterus; Z98.84 Bariatric surgery status
CPT/HCPCS: 96360; 96361; J1642; J7120

== ENCOUNTER 2024-10-30 00:18 | Day surgery (SDC) | payer MEDICARE, OTHER ==
[2024-10-30] MEDS ORDERED: Lactated Ringer's 1,000 ML IV SCH (07:10)
[2024-10-30 09:00] VITALS: BP 143/77
== END 2024-10-30 10:41 | disposition home or self-care (01) ==
LOC: ATC 00:18
DX: E86.0 Dehydration (principal); E03.9 Hypothyroidism, unspecified; E78.5 Hyperlipidemia, unspecified; I10 Essential (primary) hypertension; G43.819 Other migraine, intractable, without status migrainosus; G89.29 Other chronic pain; G47.30 Sleep apnea, unspecified; K21.9 Gastro-esophageal reflux disease without esophagitis; Z79.899 Other long term (current) drug therapy
CPT/HCPCS: 96360; 96361; J1642; J7120

== ENCOUNTER 2024-10-31 01:51 | Day surgery (SDC) | payer MEDICARE, OTHER ==
[2024-10-31] MEDS ORDERED: Lactated Ringer's 1,000 ML IV SCH (06:40)
[2024-10-31 08:51] VITALS: BP 154/72
[2024-11-01] MEDS ORDERED: magnesium gluconate PO (10:14)
== END 2024-10-31 11:01 | disposition home or self-care (01) ==
LOC: ATC 01:51
DX: E86.0 Dehydration (principal); E03.9 Hypothyroidism, unspecified; E78.5 Hyperlipidemia, unspecified; I10 Essential (primary) hypertension; G47.30 Sleep apnea, unspecified; K21.9 Gastro-esophageal reflux disease without esophagitis; M19.90 Unspecified osteoarthritis, unspecified site; G43.819 Other migraine, intractable, without status migrainosus; Z79.899 Other long term (current) drug therapy
CPT/HCPCS: 96360; 96361; J1642; J7120

== ENCOUNTER 2024-11-01 01:32 | Day surgery (SDC) | payer MEDICARE, OTHER ==
[2024-11-01] MEDS ORDERED: Lactated Ringer's 1,000 ML IV SCH (06:40)
[2024-11-01 08:56] VITALS: BP 126/62
[2024-11-01] MEDS ORDERED: magnesium gluconate PO (10:14)
== END 2024-11-01 11:20 | disposition home or self-care (01) ==
LOC: ATC 01:32
DX: E86.0 Dehydration (principal); K52.9 Noninfective gastroenteritis and colitis, unspecified; G89.29 Other chronic pain; R10.9 Unspecified abdominal pain; K21.9 Gastro-esophageal reflux disease without esophagitis; I10 Essential (primary) hypertension; M19.90 Unspecified osteoarthritis, unspecified site; G43.819 Other migraine, intractable, without status migrainosus; E03.9 Hypothyroidism, unspecified; Z79.890 Hormone replacement therapy; Z79.899 Other long term (current) drug therapy; Z88.0 Allergy status to penicillin; Z88.5 Allergy status to narcotic agent; Z88.6 Allergy status to analgesic agent; Z88.8 Allergy status to other drugs, medicaments and biological substances; Z98.84 Bariatric surgery status; Z90.710 Acquired absence of both cervix and uterus; Z90.49 Acquired absence of other specified parts of digestive tract
CPT/HCPCS: 96360; 96361; J1642; J7120

== ENCOUNTER 2024-11-02 03:14 | Day surgery (SDC) | payer MEDICARE, OTHER ==
[~2024-11-02 03:14] MED LIST changes: +magnesium gluconate PO
[2024-11-02] MEDS ORDERED: Lactated Ringer's 1,000 ML IV SCH (06:40)
[2024-11-02 08:55] VITALS: BP 137/62
== END 2024-11-02 11:05 | disposition home or self-care (01) ==
LOC: ATC 03:14
DX: E86.0 Dehydration (principal); E03.9 Hypothyroidism, unspecified; E78.5 Hyperlipidemia, unspecified; G47.30 Sleep apnea, unspecified; K21.9 Gastro-esophageal reflux disease without esophagitis; I10 Essential (primary) hypertension; G43.819 Other migraine, intractable, without status migrainosus; Z79.899 Other long term (current) drug therapy
CPT/HCPCS: 96360; 96361; J1642; J7120

== ENCOUNTER 2024-11-04 08:54 | Day surgery (SDC) | payer MEDICARE, OTHER ==
[~2024-11-04 08:54] MED LIST changes: +Lactated Ringer's 1,000 ML IV SCH
[2024-11-04 09:10] VITALS: BP 127/47
== END 2024-11-04 11:15 | disposition home or self-care (01) ==
LOC: ATC 08:54
DX: E86.0 Dehydration (principal); K52.9 Noninfective gastroenteritis and colitis, unspecified; G89.29 Other chronic pain; R10.9 Unspecified abdominal pain; I10 Essential (primary) hypertension; G43.819 Other migraine, intractable, without status migrainosus; M19.90 Unspecified osteoarthritis, unspecified site; K21.9 Gastro-esophageal reflux disease without esophagitis; E78.5 Hyperlipidemia, unspecified; E03.9 Hypothyroidism, unspecified; Z79.890 Hormone replacement therapy; Z79.899 Other long term (current) drug therapy; Z88.0 Allergy status to penicillin; Z88.5 Allergy status to narcotic agent; Z88.6 Allergy status to analgesic agent; Z88.8 Allergy status to other drugs, medicaments and biological substances; Z98.84 Bariatric surgery status; Z90.49 Acquired absence of other specified parts of digestive tract
CPT/HCPCS: 96360; 96361; J1642; J7120

== ENCOUNTER 2024-11-05 10:23 | Day surgery (SDC) | payer MEDICARE, OTHER ==
[~2024-11-05] VITALS: Ht 165.1 cm; Wt 51.1 kg
[2024-11-05] VITALS (14 sets, daily range): BP systolic 102–154; BP diastolic 50–84
[~2024-11-05 10:23] MED LIST changes: -Lactated Ringer's 1,000 ML IV SCH
[2024-11-05] MEDS ORDERED: Lactated Ringer's 1,000 ML IV SCH ×2 (11:10→11:55)
[2024-11-05] MEDS ORDERED: Tranexamic Acid 100 ML IV SCH (11:10)
[2024-11-05] MEDS ORDERED: Acetaminophen 500 MG Tab PO SCH ×2 (11:10→16:00)
[2024-11-05] MEDS ORDERED: Ropivacaine 0.5% HCl/Pf 123.125 MG,EPINEPHrine HCL 0.25 MG,Clonidine HCl/Pf 40 MCG in N... INFIL SCH (11:25)
[2024-11-05] MEDS ORDERED: Clindamycin 900mg in D5W 50ML 50 ML IV SCH (11:25)
[2024-11-05] MEDS ORDERED: OxyCODONE HCL 10 MG TABCR PO SCH (11:25)
[2024-11-05] MEDS ORDERED: Promethazine HCl 25 MG Tab PO PRN (11:50)
[2024-11-05] MEDS ORDERED: DiphenhydrAMINE HCL 25 MG Cap PO PRN (11:50)
[2024-11-05] MEDS ORDERED: HYDROmorphone HCl 0.5 MG/0.5 ML SYR IV PRN (11:55)
[2024-11-05] MEDS ORDERED: Magnesium Hydroxide Conc 10 ML UDC PO PRN (11:55)
[2024-11-05] MEDS ORDERED: FLU VACC TS2024-25(6MOS UP)/PF 45 MCG/0.5 ML SYRINGE IM SCH (11:55)
[2024-11-05] MEDS ORDERED: Metoclopramide HCl 5MG / ML 2ML Vial IV PRN (11:55)
[2024-11-05] MEDS ORDERED: OxyCODONE HCL 5 MG TAB PO PRN ×2 (12:00)
[2024-11-05] MEDS ORDERED: Ondansetron HCl 2 MG / ML 2ML Vial IV PRN (12:00)
[2024-11-05] MEDS ORDERED: Bisacodyl 10 MG Supp PR PRN (12:00)
[2024-11-05] MEDS ORDERED: propofoL 50 ML IV ONE (12:34)
[2024-11-05] MEDS ORDERED: Bupivacaine 0.5% Inj 10 ML Vial ONE (12:35)
[2024-11-05] MEDS ORDERED: FentaNYL Citrate 50 MCG/ML 2 ML Injection ONE (12:51)
--- NOTE | 2024-11-05 12:58 | NUR ---
Ambulatory in Day Surgery WITH STEADY GAIT. History, Chart, Medications and Allergies reviewed before start of procedure. Pre-Op teaching done. Pt verbalizes understanding. TOP AND BOTTOMS REMOVED AND PLACED IN PACU WITH PT STICKER. BELONGINGS INCLUDING BOOK PLACED UNDER GURN. CELL PHONE GIVEN TO SPOUSE. SPOUSE AT BEDSIDE DURING PRE OP.
[2024-11-05] MEDS ORDERED: ePHEDrine Sulfate 50 MG/ML 1ML Injection ONE (13:05)
[2024-11-05] MEDS ORDERED: Phenylephrine HCl 100 MCG/ML-NS 10MLSYR (1MG/10ML) ONE (13:13)
[2024-11-05] MEDS ORDERED: Ondansetron HCl 2 MG / ML 2ML Vial ONE (13:28)
[2024-11-05] MEDS ORDERED: Dexamethasone Sod Phos 10 MG/ML 1ML VIAL ONE (13:28)
[2024-11-05] MEDS ORDERED: Ketorolac Tromethamine 15mg Vial IV SCH (18:00)
--- NOTE | 2024-11-05 18:38 | NUR ---
shift summary s/p ltka pt reports numbness improving. no void yet. pt has fluids infusing r/t hx of dumping syndrome. pt pain controlled per emar. calls appropriatly. tristan rodriguez in, zach pollard on. plan is to discharge tomorrow.
[2024-11-05] MEDS ORDERED: Loratadine 10 MG Tab PO SCH (20:00)
[2024-11-05] MEDS ORDERED: CeFAZolin Sodium 2,000 MG in NS 100 ML IV SCH (20:00)
[2024-11-05] MEDS ORDERED: VERAPAMIL HCL 80 MG PO SCH (21:00)
[2024-11-05] MEDS ORDERED: TraZODone HCl 50 MG Tab PO SCH (21:00)
[2024-11-05] MEDS ORDERED: rOPINIRole HCl 2 MG Tab PO SCH (21:00)
[2024-11-05] MEDS ORDERED: Docusate Sodium 100 MG Cap PO SCH (21:00)
[2024-11-06 00:40] VITALS: BP 138/78
[2024-11-06] MEDS ORDERED: Atropine Sulfate 0.1 MG/ML 10ML SYR IV PRN (02:15)
[2024-11-06 02:35] LABS: BASOPHILS ABSOLUTE AUTO 0.02 K/mm3 (0.00-0.23); BASOPHILS PERCENT AUTO 0 % (0-2); EOSINOPHILS ABSOLUTE AUTO 0.04 K/mm3 (0.00-0.68); EOSINOPHILS PERCENT AUTO 0 % (0-6); Hematocrit 36.7 % (33.0-51.0); Hemoglobin 12.3 g/dL (11.5-16.0); IMMATURE GRAN ABSOLUTE AUTO 0.06 K/mm3 (0.00-0.10); IMMATURE GRAN PERCENT AUTO 1 % (0-1); LYMPHOCYTES ABSOLUTE AUTO 1.04 K/mm3 (0.84-5.20); LYMPHOCYTES PERCENT AUTO 9 % (21-46); MONOCYTES ABSOLUTE AUTO 0.66 K/mm3 (0.16-1.47); MONOCYTES PERCENT AUTO 5 % (4-13); Mean Corpuscular HGB 30.4 pg (26.0-34.0); Mean Corpuscular HGB Conc 33.5 g/dL (31.5-36.5); Mean Corpuscular Volume 91 fL (80-100); Mean Platelet Volume 9.5 fL (9.1-12.4); NEUTROPHILS ABSOLUTE AUTO 10.32 K/mm3 (1.96-9.15); NEUTROPHILS PERCENT AUTO 85 % (41-73); Platelet Count 239 K/mm3 (150-400); RDW Standard Deviation 43.6 fL (35.1-46.3); Red Blood Cell Count 4.04 M/mm3 (3.80-5.20); White Blood Cell Count 12.14 K/mm3 (4.00-11.30)
[2024-11-06 03:34] VITALS: BP 165/64
[2024-11-06 03:50] LABS: Magnesium, Blood 1.5 mg/dL (1.6-2.4)
[2024-11-06 04:13] LABS: Free Thyroxine 0.88 ng/dL (0.70-1.60)
[2024-11-06 04:26] LABS: Calcium, Blood 8.8 mg/dL (8.5-10.1); Potassium, Blood 4.6 mmol/L (3.5-5.5); Thyroid Stimulating Hormone 3.92 uIU/mL (0.360-4.800)
--- NOTE | 2024-11-06 04:49 | NUR ---
SHIFT SUMMARY POD 1 LEFT TKA. AQUACEL CDI. POLAR PACK TOLERATED TO LEFT KNEE. REF SCDS. AMBULATING TO BATHROOM WITH SBA, FWW, GB. PAIN MANAGED PER EMAR. ABX AND IVF INFUSED PER ORDERS. IS VOIDING AND MAVERICK PO INTAKE. EKG COMPLETED R/T BRADYCARDIA. PT ASYMPTOMATIC. TELE IN PLACE PER ORDER. NSR AT 72 BPM WITH PVC'S PER WEB APPLICATIONS PROGRAMMER. PLAN TO WORK WITH THERAPY AND POSSIBLY DC HOME TODAY.
[2024-11-06 05:35] LABS: BASOPHILS ABSOLUTE AUTO 0.03 K/mm3 (0.00-0.23); BASOPHILS PERCENT AUTO 0 % (0-2); EOSINOPHILS ABSOLUTE AUTO 0.02 K/mm3 (0.00-0.68); EOSINOPHILS PERCENT AUTO 0 % (0-6); Hematocrit 36.2 % (33.0-51.0); Hemoglobin 11.9 g/dL (11.5-16.0); IMMATURE GRAN ABSOLUTE AUTO 0.06 K/mm3 (0.00-0.10); IMMATURE GRAN PERCENT AUTO 0 % (0-1); LYMPHOCYTES PERCENT AUTO 9 % (21-46); MONOCYTES ABSOLUTE AUTO 0.97 K/mm3 (0.16-1.47); MONOCYTES PERCENT AUTO 7 % (4-13); Mean Corpuscular HGB 30.2 pg (26.0-34.0); Mean Corpuscular HGB Conc 32.9 g/dL (31.5-36.5); Mean Corpuscular Volume 92 fL (80-100); Mean Platelet Volume 9.5 fL (9.1-12.4); NEUTROPHILS ABSOLUTE AUTO 11.21 K/mm3 (1.96-9.15); NEUTROPHILS PERCENT AUTO 83 % (41-73); Platelet Count 225 K/mm3 (150-400); RDW Coefficient Variation 13.2 % (11.7-14.2); RDW Standard Deviation 44.7 fL (35.1-46.3); Red Blood Cell Count 3.94 M/mm3 (3.80-5.20); White Blood Cell Count 13.49 K/mm3 (4.00-11.30)
[2024-11-06] MEDS ORDERED: Levothyroxine Sodium 0.175 MG TAB PO SCH (06:00)
[2024-11-06 07:23] VITALS: BP 150/85
[2024-11-06] MEDS ORDERED: Aspirin 81 MG Chew PO SCH (08:00)
[2024-11-06] MEDS ORDERED: Loratadine 10 MG Tab PO SCH (09:00)
[2024-11-06] MEDS ORDERED: Losartan Potassium 25 MG Tab PO SCH (09:00)
[2024-11-06] MEDS ORDERED: Liothyronine Sodium 5 MCG Tab PO SCH (09:00)
[2024-11-06] MEDS ORDERED: VERAPAMIL HCL 80 MG PO SCH (09:00)
[2024-11-06] MEDS ORDERED: ASPI81CH PO (09:29)
[2024-11-06] MEDS ORDERED: VERA80 PO (09:29)
[2024-11-06] MEDS ORDERED: OXAYDO5 M1 PO (09:30)
--- NOTE | 2024-11-06 12:27 | NUR ---
DISCHARGE SUMMARY POD1 L TKA, A/OX4, VSS, TOLERATING PO, PAIN WELL MANAGED, WORKED WITH THERAPY, KAT C/D/I, SR TELEMETRY WITH PVC'S BUT NO OTHER CARDIAC EVENTS ONCE SHE WAS PLACED ON TELEMERTY, HOSPITALIST CONSULT DONE OVER NIGHT, DAY MD REPORTS NO NEEDS ON THEIR END AND OK TO DISCHARGE IF CLEARED BY ORTHO. IV REMOVED BY SHEAR GRINDER OPERATOR HELPER. DISCUSSED DC INSTRUCTIONS INCLUDING HOME CARE, MEDICATIONS, AND FOLLLOW UP APPOINTMENTS. NO QUESTIONS AT THIS TIME, ESCORTED OUT BY HER DAUGHTER WHO IS STOPPING IN THE ER TO VISIT THE PATIENTS THEN GO HOME.
== END 2024-11-06 10:50 | disposition home or self-care (01) ==
LOC: ORSCMMR 10:23 → ORD 10:30 → ORSCMMR 11:30 → ORD 14:15 → SURS 15:10 → ORSCMMR 11-06 10:50
PROVIDERS: Family Medicine; Orthopaedic Surgery
PROC: 0SRD0JA Replacement of Left Knee Joint with Synthetic Substitute, Uncemented, Open Approach (ICD-10-PCS; principal; 2024-11-05 11:30)
PROC: 8E0Y0CZ Robotic Assisted Procedure of Lower Extremity, Open Approach (ICD-10-PCS; principal; 2024-11-05 11:30)
DX: M17.12 Unilateral primary osteoarthritis, left knee (principal); I10 Essential (primary) hypertension; E78.5 Hyperlipidemia, unspecified; Z87.891 Personal history of nicotine dependence; E03.9 Hypothyroidism, unspecified; K76.0 Fatty (change of) liver, not elsewhere classified; Z79.899 Other long term (current) drug therapy
CPT/HCPCS: 27447; 0055T; 36415; 73560-LT; 80048; 83735; 84439; 84443; 84484; 85025; 93005; 93010; 97110; 97116; 97162; A9270; C1713; C1776; J0171; J0690; J0735; J1100; J1885; J2371; J2405; J2704; J2795; J3010; J7120

== ENCOUNTER 2024-11-07 01:11 | Day surgery (SDC) | payer MEDICARE, OTHER ==
[~2024-11-07 01:11] MED LIST changes: +ASPI81CH PO; +OXAYDO5 M1 PO
[2024-11-07] MEDS ORDERED: Lactated Ringer's 1,000 ML IV SCH (06:50)
[2024-11-07 08:50] VITALS: BP 149/74
== END 2024-11-07 10:21 | disposition home or self-care (01) ==
LOC: ATC 01:11
DX: E86.0 Dehydration (principal); E03.9 Hypothyroidism, unspecified; E78.5 Hyperlipidemia, unspecified; I10 Essential (primary) hypertension; K21.9 Gastro-esophageal reflux disease without esophagitis; Z79.899 Other long term (current) drug therapy; Z88.5 Allergy status to narcotic agent; Z88.8 Allergy status to other drugs, medicaments and biological substances; G89.18 Other acute postprocedural pain; M25.562 Pain in left knee; Z88.6 Allergy status to analgesic agent; Z79.890 Hormone replacement therapy
CPT/HCPCS: 36415; 80053; 83605; 85025; 85651; 86140; 87040; 96360; 96361; 96374; 96375; 99283-25; J1200; J1642; J2270; J7120

== ENCOUNTER 2024-11-07 18:30 | Emergency (ER) | payer MEDICARE, OTHER ==
[~2024-11-07] VITALS: Ht 165.1 cm; Wt 54.4 kg
[2024-11-07 19:24] LABS: BASOPHILS ABSOLUTE AUTO 0.05 K/mm3 (0.00-0.23); BASOPHILS PERCENT AUTO 1 % (0-2); EOSINOPHILS ABSOLUTE AUTO 0.32 K/mm3 (0.00-0.68); EOSINOPHILS PERCENT AUTO 4 % (0-6); Hematocrit 37.6 % (33.0-51.0); Hemoglobin 12.5 g/dL (11.5-16.0); IMMATURE GRAN ABSOLUTE AUTO 0.02 K/mm3 (0.00-0.10); IMMATURE GRAN PERCENT AUTO 0 % (0-1); LYMPHOCYTES ABSOLUTE AUTO 2.11 K/mm3 (0.84-5.20); LYMPHOCYTES PERCENT AUTO 27 % (21-46); MONOCYTES PERCENT AUTO 9 % (4-13); Mean Corpuscular HGB 30.4 pg (26.0-34.0); Mean Corpuscular HGB Conc 33.2 g/dL (31.5-36.5); Mean Corpuscular Volume 92 fL (80-100); Mean Platelet Volume 9.8 fL (9.1-12.4); NEUTROPHILS ABSOLUTE AUTO 4.74 K/mm3 (1.96-9.15); NEUTROPHILS PERCENT AUTO 60 % (41-73); Platelet Count 257 K/mm3 (150-400); RDW Coefficient Variation 13.5 % (11.7-14.2); RDW Standard Deviation 45.6 fL (35.1-46.3); Red Blood Cell Count 4.11 M/mm3 (3.80-5.20); White Blood Cell Count 7.94 K/mm3 (4.00-11.30)
[2024-11-07 19:49] LABS: Albumin, Blood 3.9 g/dL (3.4-5.0); Albumin/Globulin Ratio 1.1 (0.8-1.8); Bilirubin, Total 0.7 mg/dL (0.1-1.0); Bun/Creatinine Ratio 13.4 (12.0-20.0); C-REACTIVE PROTEIN, EXT RANGE 1.4 mg/dL (0.000-0.300); Calcium, Blood 9.1 mg/dL (8.5-10.1); Creatinine, Blood 0.75 mg/dL (0.40-1.00); Globulin, Blood 3.5 g/dL (2.2-4.0); Potassium, Blood 3.8 mmol/L (3.5-5.5); Total Protein, Blood 7.4 g/dL (6.4-8.2)
[2024-11-07] MEDS ORDERED: DiphenhydrAMINE HCl 50 MG/ML 1ML Vial IV ONE (20:10)
[2024-11-07] MEDS ORDERED: Famotidine 10 MG/ML 2ML Vial IV ONE (20:10)
[2024-11-07] MEDS ORDERED: Morphine Sulfate 4 MG/1 ML Injection IV ONE (20:20)
[2024-11-07 21:33] VITALS: BP 192/85
== END 2024-11-07 21:30 | disposition home or self-care (01) ==
LOC: ER 18:30
PROVIDERS: Student in an Organized Health Care Education/Training Program
DX: G89.18 Other acute postprocedural pain (principal); M25.562 Pain in left knee; Z88.6 Allergy status to analgesic agent; Z79.890 Hormone replacement therapy
CPT/HCPCS: 36415; 80053; 83605; 85025; 85651; 86140; 96374; 96375; J1200; J2270

== ENCOUNTER 2024-11-09 04:49 | Day surgery (SDC) | payer MEDICARE, OTHER ==
[2024-11-09] MEDS ORDERED: Lactated Ringer's 1,000 ML IV SCH (06:35)
[2024-11-09 09:10] VITALS: BP 143/69
== END 2024-11-09 11:06 | disposition home or self-care (01) ==
LOC: ATC 04:49
DX: E86.0 Dehydration (principal); K52.9 Noninfective gastroenteritis and colitis, unspecified; G89.29 Other chronic pain; R10.9 Unspecified abdominal pain; E78.5 Hyperlipidemia, unspecified; Z79.899 Other long term (current) drug therapy; Z88.0 Allergy status to penicillin; Z88.5 Allergy status to narcotic agent; Z88.6 Allergy status to analgesic agent; Z88.8 Allergy status to other drugs, medicaments and biological substances
CPT/HCPCS: 96360; 96361; J1642; J7120

== ENCOUNTER 2024-11-12 02:19 | Day surgery (SDC) | payer MEDICARE, OTHER ==
[2024-11-12] MEDS ORDERED: Lactated Ringer's 1,000 ML IV SCH (07:00)
[2024-11-12 09:07] VITALS: BP 133/76
== END 2024-11-12 11:14 | disposition home or self-care (01) ==
LOC: ATC 02:19
DX: E86.0 Dehydration (principal); E03.8 Other specified hypothyroidism; E78.5 Hyperlipidemia, unspecified; G89.29 Other chronic pain; I10 Essential (primary) hypertension; G47.30 Sleep apnea, unspecified; K21.9 Gastro-esophageal reflux disease without esophagitis; Z79.899 Other long term (current) drug therapy
CPT/HCPCS: 96360; 96361; J1642; J7120

== ENCOUNTER 2024-11-13 03:25 | Day surgery (SDC) | payer MEDICARE, OTHER ==
[2024-11-13] MEDS ORDERED: Lactated Ringer's 1,000 ML IV SCH (07:05)
[2024-11-13 08:57] VITALS: BP 158/76
== END 2024-11-13 11:08 | disposition home or self-care (01) ==
LOC: ATC 03:25
DX: E86.0 Dehydration (principal); E03.8 Other specified hypothyroidism; E78.5 Hyperlipidemia, unspecified; G89.29 Other chronic pain; I10 Essential (primary) hypertension; K21.9 Gastro-esophageal reflux disease without esophagitis; Z79.890 Hormone replacement therapy; Z79.899 Other long term (current) drug therapy
CPT/HCPCS: 96360; 96361; J1642; J7120

== ENCOUNTER 2024-11-14 02:26 | Day surgery (SDC) | payer MEDICARE, OTHER ==
[2024-11-14] MEDS ORDERED: Lactated Ringer's 1,000 ML IV SCH (06:40)
[2024-11-14 08:53] VITALS: BP 152/81
== END 2024-11-14 11:03 | disposition home or self-care (01) ==
LOC: ATC 02:26
DX: E86.0 Dehydration (principal); K52.9 Noninfective gastroenteritis and colitis, unspecified; G89.29 Other chronic pain; R10.9 Unspecified abdominal pain; I10 Essential (primary) hypertension; E03.9 Hypothyroidism, unspecified; E78.5 Hyperlipidemia, unspecified; G47.30 Sleep apnea, unspecified; G43.819 Other migraine, intractable, without status migrainosus; Z79.890 Hormone replacement therapy; Z79.899 Other long term (current) drug therapy; Z88.0 Allergy status to penicillin; Z88.5 Allergy status to narcotic agent; Z88.6 Allergy status to analgesic agent; Z88.8 Allergy status to other drugs, medicaments and biological substances; Z90.49 Acquired absence of other specified parts of digestive tract
CPT/HCPCS: 96360; 96361; J1642; J7120

== ENCOUNTER 2024-11-15 03:50 | Day surgery (SDC) | payer MEDICARE, OTHER ==
[2024-11-15] MEDS ORDERED: Lactated Ringer's 1,000 ML IV PRN (07:05)
[2024-11-15 08:50] VITALS: BP 171/87
== END 2024-11-15 11:08 | disposition home or self-care (01) ==
LOC: ATC 03:50
DX: E86.0 Dehydration (principal); K52.9 Noninfective gastroenteritis and colitis, unspecified; G89.29 Other chronic pain; R10.9 Unspecified abdominal pain; I10 Essential (primary) hypertension; M19.90 Unspecified osteoarthritis, unspecified site; G43.819 Other migraine, intractable, without status migrainosus; E03.9 Hypothyroidism, unspecified; E78.5 Hyperlipidemia, unspecified; Z79.890 Hormone replacement therapy; Z79.899 Other long term (current) drug therapy; Z88.0 Allergy status to penicillin; Z88.5 Allergy status to narcotic agent; Z88.6 Allergy status to analgesic agent; Z88.8 Allergy status to other drugs, medicaments and biological substances
CPT/HCPCS: 96360; 96361; J1642; J7120

== ENCOUNTER 2024-11-16 04:45 | Day surgery (SDC) | payer MEDICARE, OTHER ==
[2024-11-16] MEDS ORDERED: Lactated Ringer's 1,000 ML IV SCH (07:10)
[2024-11-16 08:51] VITALS: BP 173/98
== END 2024-11-16 11:04 | disposition home or self-care (01) ==
LOC: ATC 04:45
DX: E86.0 Dehydration (principal); E03.9 Hypothyroidism, unspecified; E78.5 Hyperlipidemia, unspecified; G43.819 Other migraine, intractable, without status migrainosus; G89.29 Other chronic pain; G47.30 Sleep apnea, unspecified; E55.9 Vitamin D deficiency, unspecified; K21.9 Gastro-esophageal reflux disease without esophagitis; Z79.899 Other long term (current) drug therapy
CPT/HCPCS: 96360; 96361; J7120

== ENCOUNTER 2024-11-19 02:09 | Day surgery (SDC) | payer MEDICARE, OTHER ==
[2024-11-19] MEDS ORDERED: Lactated Ringer's 500 ML IV SCH (07:00)
[2024-11-19 09:05] VITALS: BP 174/70
== END 2024-11-19 10:56 | disposition home or self-care (01) ==
LOC: ATC 02:09
DX: E86.0 Dehydration (principal); E78.5 Hyperlipidemia, unspecified; E03.9 Hypothyroidism, unspecified; G43.819 Other migraine, intractable, without status migrainosus; G47.30 Sleep apnea, unspecified; K21.9 Gastro-esophageal reflux disease without esophagitis; I10 Essential (primary) hypertension; Z79.899 Other long term (current) drug therapy
CPT/HCPCS: 96360; 96361; J1642; J7120

== ENCOUNTER 2024-11-20 08:42 | Day surgery (SDC) | payer MEDICARE, OTHER ==
[~2024-11-20 08:42] MED LIST changes: +Lactated Ringer's 1,000 ML IV SCH
[2024-11-20 08:57] VITALS: BP 146/87
== END 2024-11-20 10:57 | disposition home or self-care (01) ==
LOC: ATC 08:42
DX: E86.0 Dehydration (principal); E03.9 Hypothyroidism, unspecified; E78.5 Hyperlipidemia, unspecified; I10 Essential (primary) hypertension; G47.30 Sleep apnea, unspecified; K21.9 Gastro-esophageal reflux disease without esophagitis; M19.90 Unspecified osteoarthritis, unspecified site; G43.819 Other migraine, intractable, without status migrainosus; Z79.899 Other long term (current) drug therapy
CPT/HCPCS: 96360; 96361; J1642; J7120

== ENCOUNTER 2024-11-21 02:06 | Day surgery (SDC) | payer MEDICARE, OTHER ==
[~2024-11-21 02:06] MED LIST changes: -Lactated Ringer's 1,000 ML IV SCH
[2024-11-21] MEDS ORDERED: Lactated Ringer's 1,000 ML IV SCH (06:45)
[2024-11-21 09:00] VITALS: BP 141/81
== END 2024-11-21 11:09 | disposition home or self-care (01) ==
LOC: ATC 02:06
DX: E86.0 Dehydration (principal); E03.9 Hypothyroidism, unspecified; E78.5 Hyperlipidemia, unspecified; G43.819 Other migraine, intractable, without status migrainosus; I10 Essential (primary) hypertension; M19.90 Unspecified osteoarthritis, unspecified site; K21.9 Gastro-esophageal reflux disease without esophagitis; K91.1 Postgastric surgery syndromes; Z79.899 Other long term (current) drug therapy
CPT/HCPCS: 96360; 96361; J1642; J7120

== ENCOUNTER 2024-11-22 01:11 | Day surgery (SDC) | payer MEDICARE, OTHER ==
[2024-11-22] MEDS ORDERED: Lactated Ringer's 1,000 ML IV SCH (06:55)
[2024-11-22 09:00] VITALS: BP 154/82
== END 2024-11-22 11:02 | disposition home or self-care (01) ==
LOC: ATC 01:11
DX: E86.0 Dehydration (principal); D50.8 Other iron deficiency anemias; E03.8 Other specified hypothyroidism; I10 Essential (primary) hypertension; E78.5 Hyperlipidemia, unspecified; G89.29 Other chronic pain; G47.30 Sleep apnea, unspecified; K21.9 Gastro-esophageal reflux disease without esophagitis; Z79.899 Other long term (current) drug therapy
CPT/HCPCS: 96360; 96361; J1642; J7120

== ENCOUNTER 2024-11-23 03:46 | Day surgery (SDC) | payer MEDICARE, OTHER ==
[2024-11-23] MEDS ORDERED: Lactated Ringer's 1,000 ML IV SCH (06:50)
[2024-11-23 08:50] VITALS: BP 150/88
== END 2024-11-23 11:01 | disposition home or self-care (01) ==
LOC: ATC 03:46
DX: E86.0 Dehydration (principal); E78.5 Hyperlipidemia, unspecified; E03.9 Hypothyroidism, unspecified; I10 Essential (primary) hypertension; G47.30 Sleep apnea, unspecified; K21.9 Gastro-esophageal reflux disease without esophagitis; Z79.899 Other long term (current) drug therapy
CPT/HCPCS: 96360; 96361; J1642; J7120

== ENCOUNTER 2024-11-26 02:50 | Day surgery (SDC) | payer MEDICARE, OTHER ==
[2024-11-26] MEDS ORDERED: Lactated Ringer's 1,000 ML IV SCH (06:55)
[2024-11-26 09:01] VITALS: BP 145/85
== END 2024-11-26 10:52 | disposition home or self-care (01) ==
LOC: ATC 02:50
DX: E86.0 Dehydration (principal); K52.9 Noninfective gastroenteritis and colitis, unspecified; G89.29 Other chronic pain; R10.9 Unspecified abdominal pain; E78.5 Hyperlipidemia, unspecified; E03.9 Hypothyroidism, unspecified; I10 Essential (primary) hypertension; K21.9 Gastro-esophageal reflux disease without esophagitis; G43.819 Other migraine, intractable, without status migrainosus; Z79.890 Hormone replacement therapy; Z79.899 Other long term (current) drug therapy; Z88.5 Allergy status to narcotic agent; Z88.0 Allergy status to penicillin; Z88.6 Allergy status to analgesic agent; Z88.8 Allergy status to other drugs, medicaments and biological substances; Z98.84 Bariatric surgery status; Z90.49 Acquired absence of other specified parts of digestive tract
CPT/HCPCS: 96360; 96361; J1642; J7120

== ENCOUNTER 2024-11-27 03:06 | Day surgery (SDC) | payer MEDICARE, OTHER ==
[2024-11-27] MEDS ORDERED: Lactated Ringer's 1,000 ML IV SCH (06:40)
[2024-11-27 08:53] VITALS: BP 143/83
== END 2024-11-27 10:55 | disposition home or self-care (01) ==
LOC: ATC 03:06
DX: E86.0 Dehydration (principal); K52.9 Noninfective gastroenteritis and colitis, unspecified; G89.29 Other chronic pain; R10.9 Unspecified abdominal pain; I10 Essential (primary) hypertension; M19.90 Unspecified osteoarthritis, unspecified site; G43.819 Other migraine, intractable, without status migrainosus; E78.5 Hyperlipidemia, unspecified; E03.9 Hypothyroidism, unspecified; Z79.890 Hormone replacement therapy; Z79.899 Other long term (current) drug therapy; Z88.0 Allergy status to penicillin; Z88.5 Allergy status to narcotic agent; Z88.6 Allergy status to analgesic agent; Z88.8 Allergy status to other drugs, medicaments and biological substances
CPT/HCPCS: 96360; J1642; J7120

== ENCOUNTER 2024-11-28 04:53 | Day surgery (SDC) | payer MEDICARE, OTHER ==
[2024-11-28] MEDS ORDERED: Lactated Ringer's 1,000 ML IV SCH (07:00)
[2024-11-28 08:54] VITALS: BP 159/84
== END 2024-11-28 11:10 | disposition home or self-care (01) ==
LOC: ATC 04:53
DX: E86.0 Dehydration (principal); K52.9 Noninfective gastroenteritis and colitis, unspecified; G89.29 Other chronic pain; R10.9 Unspecified abdominal pain; I10 Essential (primary) hypertension; G43.819 Other migraine, intractable, without status migrainosus; M19.90 Unspecified osteoarthritis, unspecified site; E78.5 Hyperlipidemia, unspecified; E03.9 Hypothyroidism, unspecified; K21.9 Gastro-esophageal reflux disease without esophagitis; Z79.890 Hormone replacement therapy; Z79.899 Other long term (current) drug therapy; Z88.0 Allergy status to penicillin; Z88.5 Allergy status to narcotic agent; Z88.6 Allergy status to analgesic agent; Z88.8 Allergy status to other drugs, medicaments and biological substances; Z98.84 Bariatric surgery status; Z90.710 Acquired absence of both cervix and uterus; Z90.49 Acquired absence of other specified parts of digestive tract
CPT/HCPCS: 96360; 96361; J1642; J7120

== ENCOUNTER 2024-11-29 02:41 | Day surgery (SDC) | payer MEDICARE, OTHER ==
[2024-11-29] MEDS ORDERED: Lactated Ringer's 500 ML IV SCH (06:50)
[2024-11-29 08:47] VITALS: BP 155/84
== END 2024-11-29 10:57 | disposition home or self-care (01) ==
LOC: ATC 02:41
DX: E86.0 Dehydration (principal); K52.9 Noninfective gastroenteritis and colitis, unspecified; G89.29 Other chronic pain; R10.9 Unspecified abdominal pain; I10 Essential (primary) hypertension; M19.90 Unspecified osteoarthritis, unspecified site; E03.9 Hypothyroidism, unspecified; K21.9 Gastro-esophageal reflux disease without esophagitis; G43.819 Other migraine, intractable, without status migrainosus; E78.5 Hyperlipidemia, unspecified; Z79.890 Hormone replacement therapy; Z79.899 Other long term (current) drug therapy; Z88.5 Allergy status to narcotic agent; Z88.0 Allergy status to penicillin; Z88.6 Allergy status to analgesic agent; Z88.8 Allergy status to other drugs, medicaments and biological substances; Z98.84 Bariatric surgery status
CPT/HCPCS: 96360; 96361; J1642; J7120

== ENCOUNTER 2024-11-30 04:28 | Day surgery (SDC) | payer MEDICARE, OTHER ==
[2024-11-30] MEDS ORDERED: Lactated Ringer's 1,000 ML IV SCH (07:00)
[2024-11-30 08:56] VITALS: BP 157/79
== END 2024-11-30 11:10 | disposition home or self-care (01) ==
LOC: ATC 04:28
DX: E86.0 Dehydration (principal); I10 Essential (primary) hypertension; E03.8 Other specified hypothyroidism; E78.5 Hyperlipidemia, unspecified; G47.30 Sleep apnea, unspecified; K21.9 Gastro-esophageal reflux disease without esophagitis; Z79.890 Hormone replacement therapy; Z79.899 Other long term (current) drug therapy
CPT/HCPCS: 96360; 96361; J1642; J7120

== ENCOUNTER 2024-12-04 03:50 | Day surgery (SDC) | payer MEDICARE, OTHER ==
[2024-12-04] MEDS ORDERED: Lactated Ringer's 1,000 ML IV SCH (07:05)
[2024-12-04 08:54] VITALS: BP 161/82
== END 2024-12-04 10:44 | disposition home or self-care (01) ==
LOC: ATC 03:50
DX: E86.0 Dehydration (principal); K52.9 Noninfective gastroenteritis and colitis, unspecified; G89.29 Other chronic pain; R10.9 Unspecified abdominal pain; E78.5 Hyperlipidemia, unspecified; Z79.899 Other long term (current) drug therapy; Z88.0 Allergy status to penicillin; Z88.5 Allergy status to narcotic agent; Z88.6 Allergy status to analgesic agent
CPT/HCPCS: 96360; 96361; J1642; J7120

== ENCOUNTER 2024-12-05 01:45 | Day surgery (SDC) | payer MEDICARE, OTHER ==
[2024-12-05] MEDS ORDERED: Lactated Ringer's 1,000 ML IV SCH (07:00)
[2024-12-05 09:00] VITALS: BP 154/75
--- NOTE | 2024-12-05 11:03 | NUR ---
SELF DISCHARGE PT FLUSHED HER OWN PORT AND LEFT, STOPPED BY LOCATOR STATING HER INFUSION HAD BEEN DONE FOR 10 MINUTES AND THAT SHE HAD FLUSHER HER OWN PORT.
== END 2024-12-05 10:50 | disposition home or self-care (01) ==
LOC: ATC 01:45
DX: E86.0 Dehydration (principal); E03.8 Other specified hypothyroidism; E78.5 Hyperlipidemia, unspecified; G89.29 Other chronic pain; I10 Essential (primary) hypertension; G47.30 Sleep apnea, unspecified; K21.9 Gastro-esophageal reflux disease without esophagitis; Z79.890 Hormone replacement therapy; Z79.899 Other long term (current) drug therapy
CPT/HCPCS: 96360; 96361; J7120

== ENCOUNTER 2024-12-06 00:39 | Day surgery (SDC) | payer MEDICARE, OTHER ==
[2024-12-06] MEDS ORDERED: Lactated Ringer's 1,000 ML IV SCH (06:55)
[2024-12-06 08:50] VITALS: BP 165/77
== END 2024-12-06 10:40 | disposition home or self-care (01) ==
LOC: ATC 00:39
DX: E86.0 Dehydration (principal); D50.8 Other iron deficiency anemias; E03.8 Other specified hypothyroidism; E78.5 Hyperlipidemia, unspecified; G43.819 Other migraine, intractable, without status migrainosus; G89.29 Other chronic pain; I10 Essential (primary) hypertension; G47.30 Sleep apnea, unspecified; K21.9 Gastro-esophageal reflux disease without esophagitis; Z79.899 Other long term (current) drug therapy
CPT/HCPCS: 96360; 96361; J1642; J7120

== ENCOUNTER 2024-12-07 00:46 | Day surgery (SDC) | payer MEDICARE, OTHER ==
[2024-12-07] MEDS ORDERED: Lactated Ringer's 1,000 ML IV SCH (06:50)
[2024-12-07 08:49] VITALS: BP 148/88
== END 2024-12-07 10:58 | disposition home or self-care (01) ==
LOC: ATC 00:46
DX: E86.0 Dehydration (principal); K52.9 Noninfective gastroenteritis and colitis, unspecified; G89.29 Other chronic pain; R10.9 Unspecified abdominal pain; I10 Essential (primary) hypertension; M19.90 Unspecified osteoarthritis, unspecified site; G43.819 Other migraine, intractable, without status migrainosus; E78.5 Hyperlipidemia, unspecified; K21.9 Gastro-esophageal reflux disease without esophagitis; E03.9 Hypothyroidism, unspecified; Z79.890 Hormone replacement therapy; Z79.899 Other long term (current) drug therapy; Z88.0 Allergy status to penicillin; Z88.5 Allergy status to narcotic agent; Z88.6 Allergy status to analgesic agent; Z88.8 Allergy status to other drugs, medicaments and biological substances; Z98.84 Bariatric surgery status
CPT/HCPCS: 96360; 96361; J1642; J7120

== ENCOUNTER 2024-12-10 01:04 | Day surgery (SDC) | payer MEDICARE, OTHER ==
[2024-12-10] MEDS ORDERED: Lactated Ringer's 1,000 ML IV SCH (07:05)
[2024-12-10 09:00] VITALS: BP 128/70
== END 2024-12-10 10:55 | disposition home or self-care (01) ==
LOC: ATC 01:04
DX: E86.0 Dehydration (principal); D50.8 Other iron deficiency anemias; E03.8 Other specified hypothyroidism; E78.5 Hyperlipidemia, unspecified; G89.29 Other chronic pain; G47.30 Sleep apnea, unspecified; K21.9 Gastro-esophageal reflux disease without esophagitis; I10 Essential (primary) hypertension; Z79.899 Other long term (current) drug therapy
CPT/HCPCS: 96360; 96361; J1642; J7120

== ENCOUNTER 2024-12-11 02:36 | Day surgery (SDC) | payer MEDICARE, OTHER ==
[2024-12-11] MEDS ORDERED: Lactated Ringer's 1,000 ML IV SCH (07:05)
[2024-12-11 09:26] VITALS: BP 128/77
[2024-12-11 10:06] LABS: Albumin, Blood 3.8 g/dL (3.4-5.0); Albumin/Globulin Ratio 1.2 (0.8-1.8); Bilirubin, Direct 0.1 mg/dL (0.0-0.3); Bilirubin, Indirect 0.3 mg/dL (0.1-0.7); Bilirubin, Total 0.4 mg/dL (0.1-1.0); Globulin, Blood 3.2 g/dL (2.2-4.0)
== END 2024-12-11 11:05 | disposition home or self-care (01) ==
LOC: ATC 02:36
PROVIDERS: Internal Medicine
DX: E86.0 Dehydration (principal); K52.9 Noninfective gastroenteritis and colitis, unspecified; G89.29 Other chronic pain; R10.9 Unspecified abdominal pain; I10 Essential (primary) hypertension; M19.90 Unspecified osteoarthritis, unspecified site; G43.819 Other migraine, intractable, without status migrainosus; K21.9 Gastro-esophageal reflux disease without esophagitis; E78.5 Hyperlipidemia, unspecified; E03.9 Hypothyroidism, unspecified; Z79.890 Hormone replacement therapy; Z79.899 Other long term (current) drug therapy; Z88.0 Allergy status to penicillin; Z88.5 Allergy status to narcotic agent; Z88.6 Allergy status to analgesic agent; Z88.8 Allergy status to other drugs, medicaments and biological substances; Z98.84 Bariatric surgery status; Z90.49 Acquired absence of other specified parts of digestive tract
CPT/HCPCS: 80076; 82977; 96360; 96361; J1642; J7120

== ENCOUNTER 2024-12-12 03:15 | Day surgery (SDC) | payer MEDICARE, OTHER ==
[2024-12-12] MEDS ORDERED: Lactated Ringer's 1,000 ML IV SCH (06:45)
[2024-12-12 09:01] VITALS: BP 151/76
== END 2024-12-12 10:57 | disposition home or self-care (01) ==
LOC: ATC 03:15
DX: E86.0 Dehydration (principal); K52.9 Noninfective gastroenteritis and colitis, unspecified; G89.29 Other chronic pain; R10.9 Unspecified abdominal pain; K21.9 Gastro-esophageal reflux disease without esophagitis; I10 Essential (primary) hypertension; M19.90 Unspecified osteoarthritis, unspecified site; G43.819 Other migraine, intractable, without status migrainosus; E78.5 Hyperlipidemia, unspecified; E03.9 Hypothyroidism, unspecified; Z79.890 Hormone replacement therapy; Z79.899 Other long term (current) drug therapy; Z88.0 Allergy status to penicillin; Z88.6 Allergy status to analgesic agent; Z88.5 Allergy status to narcotic agent; Z88.8 Allergy status to other drugs, medicaments and biological substances; Z98.84 Bariatric surgery status; Z90.49 Acquired absence of other specified parts of digestive tract; Z90.710 Acquired absence of both cervix and uterus
CPT/HCPCS: 96360; 96361; J1642; J7120

== ENCOUNTER 2024-12-13 04:12 | Day surgery (SDC) | payer MEDICARE, OTHER ==
[2024-12-13 07:33] VITALS: BP 137/67
== END 2024-12-13 10:16 | disposition home or self-care (01) ==
LOC: ATC 04:12
DX: E86.0 Dehydration (principal); K52.9 Noninfective gastroenteritis and colitis, unspecified; G89.29 Other chronic pain; R10.9 Unspecified abdominal pain; I10 Essential (primary) hypertension; G43.819 Other migraine, intractable, without status migrainosus; M19.90 Unspecified osteoarthritis, unspecified site; E78.5 Hyperlipidemia, unspecified; K21.9 Gastro-esophageal reflux disease without esophagitis; E03.9 Hypothyroidism, unspecified; Z79.890 Hormone replacement therapy; Z79.899 Other long term (current) drug therapy; Z88.0 Allergy status to penicillin; Z88.6 Allergy status to analgesic agent; Z88.5 Allergy status to narcotic agent; Z88.8 Allergy status to other drugs, medicaments and biological substances; Z90.49 Acquired absence of other specified parts of digestive tract; Z90.710 Acquired absence of both cervix and uterus; Z98.84 Bariatric surgery status
CPT/HCPCS: 96360; 96361; J1642; J7120

== ENCOUNTER 2024-12-16 01:23 | Day surgery (SDC) | payer MEDICARE, OTHER ==
[2024-12-16] MEDS ORDERED: Lactated Ringer's 1,000 ML IV SCH (07:05)
[2024-12-16 13:46] VITALS: BP 169/96
== END 2024-12-16 15:41 | disposition home or self-care (01) ==
LOC: ATC 01:23
DX: E86.0 Dehydration (principal); E03.8 Other specified hypothyroidism; E78.5 Hyperlipidemia, unspecified; G47.30 Sleep apnea, unspecified; I10 Essential (primary) hypertension; K21.9 Gastro-esophageal reflux disease without esophagitis; G43.819 Other migraine, intractable, without status migrainosus; Z88.1 Allergy status to other antibiotic agents; Z88.5 Allergy status to narcotic agent; Z88.6 Allergy status to analgesic agent; Z88.8 Allergy status to other drugs, medicaments and biological substances; Z79.899 Other long term (current) drug therapy
CPT/HCPCS: 96360; 96361; J1642; J7120

== ENCOUNTER 2024-12-18 04:09 | Day surgery (SDC) | payer MEDICARE, OTHER ==
[2024-12-18 13:25] VITALS: BP 152/88
== END 2024-12-18 16:24 | disposition home or self-care (01) ==
LOC: ATC 04:09
DX: E86.0 Dehydration (principal); E03.9 Hypothyroidism, unspecified; G43.819 Other migraine, intractable, without status migrainosus; G47.30 Sleep apnea, unspecified; K21.9 Gastro-esophageal reflux disease without esophagitis
CPT/HCPCS: 96360; 96361; J1642; J7120

== ENCOUNTER 2024-12-20 02:09 | Day surgery (SDC) | payer MEDICARE, OTHER ==
[2024-12-20 07:55] VITALS: BP 141/71
== END 2024-12-20 11:04 | disposition home or self-care (01) ==
LOC: ATC 02:09
DX: E86.0 Dehydration (principal); E03.8 Other specified hypothyroidism; E78.5 Hyperlipidemia, unspecified; G89.29 Other chronic pain; I10 Essential (primary) hypertension; G47.30 Sleep apnea, unspecified; K21.9 Gastro-esophageal reflux disease without esophagitis; Z79.899 Other long term (current) drug therapy
CPT/HCPCS: 96360; 96361; J1642; J7120

== ENCOUNTER 2024-12-24 07:54 | Day surgery (SDC) | payer MEDICARE, OTHER ==
[~2024-12-24 07:54] MED LIST changes: +Lactated Ringer's 1,000 ML IV SCH
[2024-12-24 08:12] VITALS: BP 120/73
== END 2024-12-24 11:15 | disposition home or self-care (01) ==
LOC: ATC 07:54
DX: E86.0 Dehydration (principal); G89.29 Other chronic pain; R10.9 Unspecified abdominal pain; K52.9 Noninfective gastroenteritis and colitis, unspecified; E78.5 Hyperlipidemia, unspecified; G47.30 Sleep apnea, unspecified; M19.90 Unspecified osteoarthritis, unspecified site; K21.9 Gastro-esophageal reflux disease without esophagitis; G43.819 Other migraine, intractable, without status migrainosus; E03.9 Hypothyroidism, unspecified; Z79.890 Hormone replacement therapy; Z79.899 Other long term (current) drug therapy; Z98.84 Bariatric surgery status; Z90.49 Acquired absence of other specified parts of digestive tract
CPT/HCPCS: 96360; 96361; J1642; J7120

== ENCOUNTER 2024-12-27 02:52 | Day surgery (SDC) | payer MEDICARE, OTHER ==
[~2024-12-27 02:52] MED LIST changes: -Lactated Ringer's 1,000 ML IV SCH
[2024-12-27 15:04] VITALS: BP 137/71
== END 2024-12-27 18:05 | disposition home or self-care (01) ==
LOC: ATC 02:52
DX: E86.0 Dehydration (principal); E03.8 Other specified hypothyroidism; I10 Essential (primary) hypertension; K21.9 Gastro-esophageal reflux disease without esophagitis; G43.819 Other migraine, intractable, without status migrainosus; E78.5 Hyperlipidemia, unspecified; Z88.1 Allergy status to other antibiotic agents; Z88.5 Allergy status to narcotic agent; Z88.8 Allergy status to other drugs, medicaments and biological substances; Z79.890 Hormone replacement therapy; Z79.899 Other long term (current) drug therapy; Z98.84 Bariatric surgery status
CPT/HCPCS: 96360; 96361; J1642; J7120

== ENCOUNTER 2024-12-30 00:34 | Day surgery (SDC) | payer MEDICARE, OTHER ==
[2024-12-30 07:55] VITALS: BP 139/87
[2024-12-30] MEDS ORDERED: TRAM50 PO (08:14)
== END 2024-12-30 11:05 | disposition home or self-care (01) ==
LOC: ATC 00:34
DX: E86.0 Dehydration (principal); D50.8 Other iron deficiency anemias; E03.8 Other specified hypothyroidism; E78.5 Hyperlipidemia, unspecified; G89.29 Other chronic pain; I10 Essential (primary) hypertension; G47.30 Sleep apnea, unspecified; K21.9 Gastro-esophageal reflux disease without esophagitis; Z79.890 Hormone replacement therapy; Z79.899 Other long term (current) drug therapy
CPT/HCPCS: 96360; 96361; J1642; J7120

== ENCOUNTER 2025-01-01 04:09 | Day surgery (SDC) | payer MEDICARE, OTHER ==
[2025-01-01] MEDS ORDERED: Lactated Ringer's 1,000 ML IV SCH (07:00)
[2025-01-01 08:00] VITALS: BP 140/65
== END 2025-01-01 11:00 | disposition home or self-care (01) ==
LOC: ATC 04:09
DX: E86.0 Dehydration (principal); I10 Essential (primary) hypertension; E03.8 Other specified hypothyroidism; E78.5 Hyperlipidemia, unspecified; K21.9 Gastro-esophageal reflux disease without esophagitis; G43.819 Other migraine, intractable, without status migrainosus; Z79.899 Other long term (current) drug therapy; Z79.890 Hormone replacement therapy; Z88.1 Allergy status to other antibiotic agents; Z88.5 Allergy status to narcotic agent
CPT/HCPCS: 96360; 96361; J1642; J7120

== ENCOUNTER 2025-01-06 02:31 | Day surgery (SDC) | payer MEDICARE, OTHER ==
[2025-01-06] MEDS ORDERED: Lactated Ringer's 1,000 ML IV SCH (07:20)
[2025-01-06 08:30] VITALS: BP 135/66
== END 2025-01-06 11:24 | disposition home or self-care (01) ==
LOC: ATC 02:31
DX: E86.0 Dehydration (principal); D50.8 Other iron deficiency anemias; E03.8 Other specified hypothyroidism; E78.5 Hyperlipidemia, unspecified; G43.819 Other migraine, intractable, without status migrainosus; G89.29 Other chronic pain; I10 Essential (primary) hypertension; G47.30 Sleep apnea, unspecified; K21.9 Gastro-esophageal reflux disease without esophagitis; Z79.890 Hormone replacement therapy; Z79.899 Other long term (current) drug therapy
CPT/HCPCS: 96360; 96361; J1642; J7120

== ENCOUNTER 2025-01-08 02:53 | Day surgery (SDC) | payer MEDICARE, OTHER ==
[2025-01-08] MEDS ORDERED: Lactated Ringer's 1,000 ML IV SCH (06:50)
[2025-01-08 13:58] VITALS: BP 150/88
== END 2025-01-08 17:03 | disposition home or self-care (01) ==
LOC: ATC 02:53
DX: E86.0 Dehydration (principal); E03.9 Hypothyroidism, unspecified; E78.5 Hyperlipidemia, unspecified; G43.819 Other migraine, intractable, without status migrainosus; I10 Essential (primary) hypertension; K21.9 Gastro-esophageal reflux disease without esophagitis; Z79.899 Other long term (current) drug therapy; Z88.8 Allergy status to other drugs, medicaments and biological substances
CPT/HCPCS: 96360; 96361; J1642; J7120

== ENCOUNTER 2025-01-10 01:37 | Day surgery (SDC) | payer MEDICARE, OTHER ==
[2025-01-10] MEDS ORDERED: Lactated Ringer's 1,000 ML IV SCH (06:45)
[2025-01-10 07:50] VITALS: BP 128/73
== END 2025-01-10 10:53 | disposition home or self-care (01) ==
LOC: ATC 01:37
DX: E86.0 Dehydration (principal); G89.29 Other chronic pain; R10.9 Unspecified abdominal pain; K52.9 Noninfective gastroenteritis and colitis, unspecified; I10 Essential (primary) hypertension; E03.9 Hypothyroidism, unspecified; K21.9 Gastro-esophageal reflux disease without esophagitis; M19.90 Unspecified osteoarthritis, unspecified site; Z79.890 Hormone replacement therapy; Z79.899 Other long term (current) drug therapy; Z88.0 Allergy status to penicillin; Z88.5 Allergy status to narcotic agent; Z88.8 Allergy status to other drugs, medicaments and biological substances; Z98.84 Bariatric surgery status; Z90.49 Acquired absence of other specified parts of digestive tract
CPT/HCPCS: 96360; 96361; J1642; J7120

== ENCOUNTER 2025-01-13 00:31 | Day surgery (SDC) | payer MEDICARE, OTHER ==
[2025-01-13] MEDS ORDERED: Lactated Ringer's 1,000 ML IV SCH (07:00)
[2025-01-13 08:10] VITALS: BP 135/72
== END 2025-01-13 11:12 | disposition home or self-care (01) ==
LOC: ATC 00:31
DX: E86.0 Dehydration (principal); G89.29 Other chronic pain; R10.9 Unspecified abdominal pain; K52.9 Noninfective gastroenteritis and colitis, unspecified; I10 Essential (primary) hypertension; E16.2 Hypoglycemia, unspecified; K91.1 Postgastric surgery syndromes; E03.9 Hypothyroidism, unspecified; M25.551 Pain in right hip; E78.5 Hyperlipidemia, unspecified; G47.30 Sleep apnea, unspecified; M19.90 Unspecified osteoarthritis, unspecified site; K21.9 Gastro-esophageal reflux disease without esophagitis; G43.819 Other migraine, intractable, without status migrainosus; Z79.890 Hormone replacement therapy; Z79.899 Other long term (current) drug therapy; Z88.0 Allergy status to penicillin; Z88.5 Allergy status to narcotic agent; Z88.6 Allergy status to analgesic agent; Z90.49 Acquired absence of other specified parts of digestive tract; Z98.84 Bariatric surgery status
CPT/HCPCS: 96360; 96361; J1642; J7120

== ENCOUNTER 2025-01-15 03:43 | Day surgery (SDC) | payer MEDICARE, OTHER ==
[2025-01-15 08:00] VITALS: BP 141/68
== END 2025-01-15 11:04 | disposition home or self-care (01) ==
LOC: ATC 03:43
DX: E86.0 Dehydration (principal); E03.9 Hypothyroidism, unspecified; E78.5 Hyperlipidemia, unspecified; G89.29 Other chronic pain; K21.9 Gastro-esophageal reflux disease without esophagitis; I10 Essential (primary) hypertension; Z79.899 Other long term (current) drug therapy; Z88.5 Allergy status to narcotic agent; Z88.8 Allergy status to other drugs, medicaments and biological substances

== ENCOUNTER 2025-01-17 02:30 | Day surgery (SDC) | payer MEDICARE, OTHER ==
[2025-01-17] MEDS ORDERED: Lactated Ringer's 2,000 ML IV SCH (06:45)
[2025-01-17 07:53] VITALS: BP 139/66
[2025-01-17] MEDS ORDERED: Percocet 5-3251 EACH PO (07:53)
== END 2025-01-17 10:56 | disposition home or self-care (01) ==
LOC: ATC 02:30
DX: E86.0 Dehydration (principal); E03.9 Hypothyroidism, unspecified; E78.5 Hyperlipidemia, unspecified; G89.29 Other chronic pain; K21.9 Gastro-esophageal reflux disease without esophagitis; Z88.5 Allergy status to narcotic agent; Z88.8 Allergy status to other drugs, medicaments and biological substances
CPT/HCPCS: 96360; 96361; J1642; J7120

== ENCOUNTER 2025-01-20 03:47 | Day surgery (SDC) | payer MEDICARE, OTHER ==
[2025-01-20] MEDS ORDERED: Lactated Ringer's 1,000 ML IV SCH (10:10)
[2025-01-20 12:50] VITALS: BP 139/71
== END 2025-01-20 16:00 | disposition home or self-care (01) ==
LOC: ATC 03:47
DX: E86.0 Dehydration (principal); D50.8 Other iron deficiency anemias; E03.8 Other specified hypothyroidism; E78.5 Hyperlipidemia, unspecified; G89.29 Other chronic pain; I10 Essential (primary) hypertension; K21.9 Gastro-esophageal reflux disease without esophagitis; Z79.899 Other long term (current) drug therapy
CPT/HCPCS: 96360; 96361; J1642; J7120

== ENCOUNTER 2025-01-22 00:44 | Day surgery (SDC) | payer MEDICARE, OTHER ==
[2025-01-22] MEDS ORDERED: Lactated Ringer's 1,000 ML IV SCH (06:55)
[2025-01-22 07:39] VITALS: BP 155/73
== END 2025-01-22 10:47 | disposition home or self-care (01) ==
LOC: ATC 00:44
DX: E86.0 Dehydration (principal); D50.8 Other iron deficiency anemias; E03.9 Hypothyroidism, unspecified; E78.5 Hyperlipidemia, unspecified; G43.819 Other migraine, intractable, without status migrainosus; G89.29 Other chronic pain; I10 Essential (primary) hypertension; G47.30 Sleep apnea, unspecified; K21.9 Gastro-esophageal reflux disease without esophagitis; Z79.899 Other long term (current) drug therapy
CPT/HCPCS: 96360; 96361; J1642; J7120

== ENCOUNTER 2025-01-24 02:04 | Day surgery (SDC) | payer MEDICARE, OTHER ==
[2025-01-24] MEDS ORDERED: Lactated Ringer's 2,000 ML IV SCH (06:50)
[2025-01-24 08:10] VITALS: BP 132/119
== END 2025-01-24 11:12 | disposition home or self-care (01) ==
LOC: ATC 02:04
DX: E86.0 Dehydration (principal); E03.9 Hypothyroidism, unspecified; E78.5 Hyperlipidemia, unspecified; G43.819 Other migraine, intractable, without status migrainosus; G47.30 Sleep apnea, unspecified; K21.9 Gastro-esophageal reflux disease without esophagitis; Z79.899 Other long term (current) drug therapy; Z88.5 Allergy status to narcotic agent; Z88.8 Allergy status to other drugs, medicaments and biological substances
CPT/HCPCS: 96365; 96366; J1642; J7120

== ENCOUNTER 2025-02-03 04:27 | Day surgery (SDC) | payer MEDICARE, OTHER ==
[2025-02-03] MEDS ORDERED: Lactated Ringer's 2,000 ML IV SCH ×2 (09:40→09:50)
[2025-02-03 12:45] VITALS: BP 156/95
== END 2025-02-03 15:58 | disposition home or self-care (01) ==
LOC: ATC 04:27
DX: E86.0 Dehydration (principal); I10 Essential (primary) hypertension; K21.9 Gastro-esophageal reflux disease without esophagitis; E78.5 Hyperlipidemia, unspecified; G43.819 Other migraine, intractable, without status migrainosus; E03.8 Other specified hypothyroidism; Z79.899 Other long term (current) drug therapy; Z79.890 Hormone replacement therapy; Z88.1 Allergy status to other antibiotic agents; Z88.8 Allergy status to other drugs, medicaments and biological substances; Z88.5 Allergy status to narcotic agent; Z98.84 Bariatric surgery status
CPT/HCPCS: 96360; 96361; J1642; J7120

== ENCOUNTER 2025-02-05 04:33 | Day surgery (SDC) | payer MEDICARE, OTHER ==
[2025-02-05] MEDS ORDERED: LACTATED RINGER S IV SCH (06:55)
[2025-02-05 08:05] VITALS: BP 153/71
== END 2025-02-05 11:05 | disposition home or self-care (01) ==
LOC: ATC 04:33
DX: E86.0 Dehydration (principal); E03.9 Hypothyroidism, unspecified; E78.5 Hyperlipidemia, unspecified; G43.819 Other migraine, intractable, without status migrainosus; G89.29 Other chronic pain; I10 Essential (primary) hypertension; G47.30 Sleep apnea, unspecified; M19.90 Unspecified osteoarthritis, unspecified site; K21.9 Gastro-esophageal reflux disease without esophagitis; Z79.899 Other long term (current) drug therapy; Z88.5 Allergy status to narcotic agent; Z88.8 Allergy status to other drugs, medicaments and biological substances
CPT/HCPCS: 96360; 96361; J1642; J7120

== ENCOUNTER 2025-02-07 03:07 | Day surgery (SDC) | payer MEDICARE, OTHER ==
[2025-02-07] MEDS ORDERED: Lactated Ringer's 2,000 ML IV SCH (06:50)
[2025-02-07 08:10] VITALS: BP 148/102
== END 2025-02-07 11:07 | disposition home or self-care (01) ==
LOC: ATC 03:07
DX: E86.0 Dehydration (principal); E03.8 Other specified hypothyroidism; I10 Essential (primary) hypertension; K21.9 Gastro-esophageal reflux disease without esophagitis; G43.819 Other migraine, intractable, without status migrainosus; E78.5 Hyperlipidemia, unspecified; Z79.899 Other long term (current) drug therapy; Z79.890 Hormone replacement therapy; Z88.1 Allergy status to other antibiotic agents; Z88.5 Allergy status to narcotic agent; Z98.84 Bariatric surgery status
CPT/HCPCS: 96360; 96361; J1642; J7120

== ENCOUNTER 2025-02-10 01:23 | Day surgery (SDC) | payer MEDICARE, OTHER ==
[2025-02-10] MEDS ORDERED: Lactated Ringer's 1,000 ML IV SCH (07:00)
[2025-02-10 08:15] VITALS: BP 153/94
== END 2025-02-10 11:21 | disposition home or self-care (01) ==
LOC: ATC 01:23
DX: E86.0 Dehydration (principal); E03.9 Hypothyroidism, unspecified; E78.5 Hyperlipidemia, unspecified; G43.819 Other migraine, intractable, without status migrainosus; G47.30 Sleep apnea, unspecified; I10 Essential (primary) hypertension; Z79.899 Other long term (current) drug therapy; Z88.5 Allergy status to narcotic agent; Z88.8 Allergy status to other drugs, medicaments and biological substances
CPT/HCPCS: 96360; 96361; J1642; J7120

== ENCOUNTER 2025-02-14 00:27 | Day surgery (SDC) | payer MEDICARE, OTHER ==
[2025-02-14] MEDS ORDERED: Lactated Ringer's 1,000 ML IV SCH (06:40)
[2025-02-14 07:48] VITALS: BP 151/74
== END 2025-02-14 10:57 | disposition home or self-care (01) ==
LOC: ATC 00:27
DX: E86.0 Dehydration (principal); I10 Essential (primary) hypertension; E78.5 Hyperlipidemia, unspecified; E03.8 Other specified hypothyroidism; G89.29 Other chronic pain; G47.30 Sleep apnea, unspecified; K21.9 Gastro-esophageal reflux disease without esophagitis; Z79.899 Other long term (current) drug therapy
CPT/HCPCS: 96360; 96361; J1642; J7120

== ENCOUNTER 2025-03-03 02:05 | Day surgery (SDC) | payer MEDICARE, OTHER ==
[2025-03-03] MEDS ORDERED: Lactated Ringer's 1,000 ML IV SCH (07:15)
[2025-03-03 08:14] VITALS: BP 133/79
== END 2025-03-03 11:15 | disposition home or self-care (01) ==
LOC: ATC 02:05
DX: E86.0 Dehydration (principal); Z79.899 Other long term (current) drug therapy; Z88.8 Allergy status to other drugs, medicaments and biological substances; E03.9 Hypothyroidism, unspecified; E78.5 Hyperlipidemia, unspecified; G47.30 Sleep apnea, unspecified; K21.9 Gastro-esophageal reflux disease without esophagitis
CPT/HCPCS: 96360; 96361; J1642; J7120

== ENCOUNTER 2025-03-04 01:06 | Day surgery (SDC) | payer MEDICARE, OTHER ==
[2025-03-04] MEDS ORDERED: Lactated Ringer's 1,000 ML IV SCH (06:55)
[2025-03-04 07:59] VITALS: BP 149/64
== END 2025-03-04 11:00 | disposition home or self-care (01) ==
LOC: ATC 01:06
DX: E86.0 Dehydration (principal); Z88.0 Allergy status to penicillin; Z88.5 Allergy status to narcotic agent; Z88.6 Allergy status to analgesic agent; Z88.8 Allergy status to other drugs, medicaments and biological substances
CPT/HCPCS: 96360; 96361; J1642; J7120

== ENCOUNTER 2025-03-26 01:09 | Day surgery (SDC) | payer MEDICARE, OTHER ==
[2025-03-26 13:45] VITALS: BP 145/64
[2025-03-26 15:04] LABS: Alanine Aminotransfer (ALT/SGP 91.0 U/L (12-78); Albumin, Blood 3.5 g/dL (3.4-5.0); Albumin/Globulin Ratio 1.1 (0.8-1.8); Aspartate Aminotrans (AST/SGOT 84.0 U/L (12-37); Bilirubin, Direct 0.1 mg/dL (0.0-0.3); Bilirubin, Indirect 0.4 mg/dL (0.1-0.7); Bilirubin, Total 0.5 mg/dL (0.1-1.0); Globulin, Blood 3.3 g/dL (2.2-4.0); Total Protein, Blood 6.8 g/dL (6.4-8.2)
== END 2025-03-26 16:46 | disposition home or self-care (01) ==
LOC: ATC 01:09
PROVIDERS: Internal Medicine
DX: E86.0 Dehydration (principal); I10 Essential (primary) hypertension; K21.9 Gastro-esophageal reflux disease without esophagitis; Z79.899 Other long term (current) drug therapy; Z79.890 Hormone replacement therapy; Z88.8 Allergy status to other drugs, medicaments and biological substances; Z88.1 Allergy status to other antibiotic agents; Z88.5 Allergy status to narcotic agent
CPT/HCPCS: 36591; 80076; 96360; 96361; J1642; J7120

== ENCOUNTER 2025-03-28 03:14 | Day surgery (SDC) | payer MEDICARE, OTHER ==
[2025-03-28 13:49] VITALS: BP 154/67
== END 2025-03-28 16:50 | disposition home or self-care (01) ==
LOC: ATC 03:14
DX: E86.0 Dehydration (principal); I10 Essential (primary) hypertension; K21.9 Gastro-esophageal reflux disease without esophagitis; E78.5 Hyperlipidemia, unspecified; Z79.899 Other long term (current) drug therapy; Z88.1 Allergy status to other antibiotic agents; Z88.5 Allergy status to narcotic agent; Z88.8 Allergy status to other drugs, medicaments and biological substances
CPT/HCPCS: 96360; 96361; J1642; J7120

== ENCOUNTER 2025-03-31 01:07 | Day surgery (SDC) | payer MEDICARE, OTHER ==
[2025-03-31 08:09] VITALS: BP 133/69
== END 2025-03-31 11:20 | disposition home or self-care (01) ==
LOC: ATC 01:07
DX: E86.0 Dehydration (principal); E78.5 Hyperlipidemia, unspecified; G89.29 Other chronic pain; I10 Essential (primary) hypertension; M19.90 Unspecified osteoarthritis, unspecified site; Z79.1 Long term (current) use of non-steroidal anti-inflammatories (NSAID); Z79.890 Hormone replacement therapy; Z79.899 Other long term (current) drug therapy; Z88.0 Allergy status to penicillin; Z88.5 Allergy status to narcotic agent; Z88.6 Allergy status to analgesic agent; Z88.8 Allergy status to other drugs, medicaments and biological substances
CPT/HCPCS: 96360; 96361; J1642; J7120

== ENCOUNTER 2025-04-02 01:40 | Day surgery (SDC) | payer MEDICARE, OTHER ==
[2025-04-02 07:56] VITALS: BP 124/64
== END 2025-04-02 11:04 | disposition home or self-care (01) ==
LOC: ATC 01:40
DX: E86.0 Dehydration (principal); I10 Essential (primary) hypertension; K21.9 Gastro-esophageal reflux disease without esophagitis; Z79.899 Other long term (current) drug therapy; Z79.890 Hormone replacement therapy; Z88.1 Allergy status to other antibiotic agents; Z88.5 Allergy status to narcotic agent; Z88.6 Allergy status to analgesic agent; Z88.8 Allergy status to other drugs, medicaments and biological substances
CPT/HCPCS: 96360; 96361; J1642; J7120

== ENCOUNTER 2025-04-04 04:47 | Day surgery (SDC) | payer MEDICARE, OTHER ==
[2025-04-04 07:56] VITALS: BP 128/72
== END 2025-04-04 11:03 | disposition home or self-care (01) ==
LOC: ATC 04:47
DX: E86.0 Dehydration (principal); E78.5 Hyperlipidemia, unspecified; G89.29 Other chronic pain; I10 Essential (primary) hypertension; G47.30 Sleep apnea, unspecified; M19.90 Unspecified osteoarthritis, unspecified site; E55.9 Vitamin D deficiency, unspecified; K21.9 Gastro-esophageal reflux disease without esophagitis; Z79.890 Hormone replacement therapy; Z79.899 Other long term (current) drug therapy; Z88.0 Allergy status to penicillin; Z88.5 Allergy status to narcotic agent; Z88.6 Allergy status to analgesic agent
CPT/HCPCS: 96360; 96361; J1642; J7120

== ENCOUNTER 2025-04-07 03:17 | Day surgery (SDC) | payer MEDICARE, OTHER ==
[2025-04-07 15:14] VITALS: BP 155/73
== END 2025-04-07 18:15 | disposition home or self-care (01) ==
LOC: ATC 03:17
DX: E86.0 Dehydration (principal)
CPT/HCPCS: 96360; 96361; J1642; J7120

== ENCOUNTER 2025-04-09 08:07 | Day surgery (SDC) | payer MEDICARE, OTHER ==
[2025-04-09 08:04] VITALS: BP 136/69
== END 2025-04-09 11:06 | disposition home or self-care (01) ==
LOC: ATC 08:07
DX: E86.0 Dehydration (principal); G89.29 Other chronic pain; R10.9 Unspecified abdominal pain; K52.9 Noninfective gastroenteritis and colitis, unspecified; Z88.0 Allergy status to penicillin; Z88.6 Allergy status to analgesic agent; Z88.8 Allergy status to other drugs, medicaments and biological substances
CPT/HCPCS: 96360; 96361; J1642; J7120

== ENCOUNTER 2025-04-11 07:44 | Day surgery (SDC) | payer MEDICARE, OTHER ==
[2025-04-11 07:45] VITALS: BP 135/65
== END 2025-04-11 10:52 | disposition home or self-care (01) ==
LOC: ATC 07:44
DX: E86.0 Dehydration (principal); Z88.0 Allergy status to penicillin; Z88.5 Allergy status to narcotic agent; Z88.6 Allergy status to analgesic agent
CPT/HCPCS: 96360; 96361; J1642; J7120

== ENCOUNTER 2025-04-23 01:28 | Day surgery (SDC) | payer MEDICARE, OTHER ==
[2025-04-23 07:55] VITALS: BP 148/62
== END 2025-04-23 11:24 | disposition home or self-care (01) ==
LOC: ATC 01:28
DX: E86.0 Dehydration (principal); Z88.0 Allergy status to penicillin; Z88.5 Allergy status to narcotic agent; Z88.6 Allergy status to analgesic agent; Z88.8 Allergy status to other drugs, medicaments and biological substances
CPT/HCPCS: 96360; 96361; J1642; J7120

== ENCOUNTER 2025-04-25 02:30 | Day surgery (SDC) | payer MEDICARE, OTHER ==
[2025-04-25 07:56] VITALS: BP 146/68
== END 2025-04-25 11:03 | disposition home or self-care (01) ==
LOC: ATC 02:30
DX: E86.0 Dehydration (principal); D50.8 Other iron deficiency anemias; E03.8 Other specified hypothyroidism; E78.5 Hyperlipidemia, unspecified; G43.819 Other migraine, intractable, without status migrainosus; G89.29 Other chronic pain; R10.9 Unspecified abdominal pain; I10 Essential (primary) hypertension; G47.30 Sleep apnea, unspecified; M19.90 Unspecified osteoarthritis, unspecified site; E55.9 Vitamin D deficiency, unspecified; K52.9 Noninfective gastroenteritis and colitis, unspecified; M25.551 Pain in right hip; K21.9 Gastro-esophageal reflux disease without esophagitis; Z79.890 Hormone replacement therapy; Z79.899 Other long term (current) drug therapy; Z88.0 Allergy status to penicillin; Z88.5 Allergy status to narcotic agent; Z88.8 Allergy status to other drugs, medicaments and biological substances
CPT/HCPCS: 96360; 96361; J1642; J7120

== ENCOUNTER 2025-04-28 04:14 | Day surgery (SDC) | payer MEDICARE, OTHER ==
[2025-04-28 14:10] VITALS: BP 129/72
== END 2025-04-28 17:12 | disposition home or self-care (01) ==
LOC: ATC 04:14
DX: E86.0 Dehydration (principal); K52.9 Noninfective gastroenteritis and colitis, unspecified; G89.29 Other chronic pain; R10.9 Unspecified abdominal pain; Z88.0 Allergy status to penicillin; Z88.5 Allergy status to narcotic agent; Z88.6 Allergy status to analgesic agent
CPT/HCPCS: 96360; 96361; J1642; J7120

== ENCOUNTER 2025-04-30 00:56 | Day surgery (SDC) | payer MEDICARE, OTHER ==
[2025-04-30 08:10] VITALS: BP 134/67
== END 2025-04-30 11:01 | disposition home or self-care (01) ==
LOC: ATC 00:56
DX: E86.0 Dehydration (principal); Z88.0 Allergy status to penicillin; Z88.5 Allergy status to narcotic agent; Z88.6 Allergy status to analgesic agent
CPT/HCPCS: 96360; 96361; J1642; J7120

== ENCOUNTER 2025-05-02 03:29 | Day surgery (SDC) | payer MEDICARE, OTHER ==
[2025-05-02 07:54] VITALS: BP 150/70
== END 2025-05-02 10:56 | disposition home or self-care (01) ==
LOC: ATC 03:29
DX: E86.0 Dehydration (principal); K52.9 Noninfective gastroenteritis and colitis, unspecified; G89.29 Other chronic pain; R10.9 Unspecified abdominal pain; M25.551 Pain in right hip; Z88.0 Allergy status to penicillin; Z88.5 Allergy status to narcotic agent; Z88.6 Allergy status to analgesic agent
CPT/HCPCS: 96360; 96361; J1642; J7120

== ENCOUNTER 2025-05-05 02:54 | Day surgery (SDC) | payer MEDICARE, OTHER ==
[2025-05-05 07:59] VITALS: BP 132/66
== END 2025-05-05 11:09 | disposition home or self-care (01) ==
LOC: ATC 02:54
DX: E86.0 Dehydration (principal); K52.9 Noninfective gastroenteritis and colitis, unspecified; G89.29 Other chronic pain; R10.9 Unspecified abdominal pain; M25.551 Pain in right hip; Z88.0 Allergy status to penicillin; Z88.5 Allergy status to narcotic agent; Z88.6 Allergy status to analgesic agent; Z88.8 Allergy status to other drugs, medicaments and biological substances
CPT/HCPCS: 96360; 96361; J1642; J7120

== ENCOUNTER 2025-05-07 02:03 | Day surgery (SDC) | payer MEDICARE, OTHER ==
[2025-05-07 07:57] VITALS: BP 138/72
== END 2025-05-07 10:49 | disposition home or self-care (01) ==
LOC: ATC 02:03
DX: E86.0 Dehydration (principal); E03.8 Other specified hypothyroidism; K21.9 Gastro-esophageal reflux disease without esophagitis; Z79.890 Hormone replacement therapy; Z79.899 Other long term (current) drug therapy; Z88.1 Allergy status to other antibiotic agents; Z88.8 Allergy status to other drugs, medicaments and biological substances; Z88.5 Allergy status to narcotic agent; Z88.6 Allergy status to analgesic agent
CPT/HCPCS: 96360; 96361; J1642; J7120

== ENCOUNTER 2025-05-10 03:45 | Day surgery (SDC) | payer MEDICARE, OTHER ==
[2025-05-10 09:16] VITALS: BP 148/72
== END 2025-05-10 12:29 | disposition home or self-care (01) ==
LOC: ATC 03:45
DX: E86.0 Dehydration (principal); K52.9 Noninfective gastroenteritis and colitis, unspecified; G89.29 Other chronic pain; R10.9 Unspecified abdominal pain; Z88.0 Allergy status to penicillin; Z88.5 Allergy status to narcotic agent; Z88.6 Allergy status to analgesic agent; Z88.8 Allergy status to other drugs, medicaments and biological substances
CPT/HCPCS: 96360; 96361; J1642; J7120

== ENCOUNTER 2025-05-12 13:49 | Day surgery (SDC) | payer MEDICARE, OTHER ==
[2025-05-12 14:01] VITALS: BP 141/82
== END 2025-05-12 17:05 | disposition home or self-care (01) ==
LOC: ATC 13:49
DX: E86.0 Dehydration (principal); G89.29 Other chronic pain; R10.9 Unspecified abdominal pain; K52.9 Noninfective gastroenteritis and colitis, unspecified; M25.551 Pain in right hip; D50.8 Other iron deficiency anemias; E03.8 Other specified hypothyroidism; E78.5 Hyperlipidemia, unspecified; G43.819 Other migraine, intractable, without status migrainosus; I10 Essential (primary) hypertension; G47.30 Sleep apnea, unspecified; M19.90 Unspecified osteoarthritis, unspecified site; E55.9 Vitamin D deficiency, unspecified; K21.9 Gastro-esophageal reflux disease without esophagitis; Z79.890 Hormone replacement therapy; Z79.899 Other long term (current) drug therapy; Z88.0 Allergy status to penicillin; Z88.5 Allergy status to narcotic agent; Z88.6 Allergy status to analgesic agent; Z88.8 Allergy status to other drugs, medicaments and biological substances
CPT/HCPCS: 96360; 96361; J1642; J7120

== ENCOUNTER 2025-05-14 02:25 | Day surgery (SDC) | payer MEDICARE, OTHER ==
[2025-05-14 07:59] VITALS: BP 135/81
== END 2025-05-14 11:03 | disposition home or self-care (01) ==
LOC: ATC 02:25
DX: E86.0 Dehydration (principal); K52.9 Noninfective gastroenteritis and colitis, unspecified; G89.29 Other chronic pain; R10.9 Unspecified abdominal pain; Z88.0 Allergy status to penicillin; Z88.5 Allergy status to narcotic agent; Z88.6 Allergy status to analgesic agent; Z88.8 Allergy status to other drugs, medicaments and biological substances
CPT/HCPCS: 96360; 96361; J1642; J7120

== ENCOUNTER 2025-05-16 00:15 | Day surgery (SDC) | payer MEDICARE, OTHER ==
[2025-05-16 07:59] VITALS: BP 139/71
== END 2025-05-16 11:04 | disposition home or self-care (01) ==
LOC: ATC 00:15
DX: E86.0 Dehydration (principal); G89.29 Other chronic pain; R10.9 Unspecified abdominal pain; K52.9 Noninfective gastroenteritis and colitis, unspecified; M25.551 Pain in right hip; D50.8 Other iron deficiency anemias; E03.8 Other specified hypothyroidism; E78.5 Hyperlipidemia, unspecified; G43.819 Other migraine, intractable, without status migrainosus; G47.30 Sleep apnea, unspecified; M19.90 Unspecified osteoarthritis, unspecified site; E55.9 Vitamin D deficiency, unspecified; K21.9 Gastro-esophageal reflux disease without esophagitis; Z79.890 Hormone replacement therapy; Z79.899 Other long term (current) drug therapy; Z88.0 Allergy status to penicillin; Z88.5 Allergy status to narcotic agent; Z88.6 Allergy status to analgesic agent; Z88.8 Allergy status to other drugs, medicaments and biological substances
CPT/HCPCS: 96360; 96361; J1642; J7120

== ENCOUNTER 2025-05-19 00:15 | Day surgery (SDC) | payer MEDICARE, OTHER ==
[2025-05-19 07:58] VITALS: BP 137/64
== END 2025-05-19 11:00 | disposition home or self-care (01) ==
LOC: ATC 00:15
DX: E86.0 Dehydration (principal); Z88.0 Allergy status to penicillin; Z88.5 Allergy status to narcotic agent; Z88.6 Allergy status to analgesic agent
CPT/HCPCS: 96360; 96361; J7120

== ENCOUNTER 2025-05-21 02:50 | Day surgery (SDC) | payer MEDICARE, OTHER ==
[2025-05-21 08:17] VITALS: BP 143/74
[2025-05-21] MEDS ORDERED: NORT25 PO (09:37)
== END 2025-05-21 11:19 | disposition home or self-care (01) ==
LOC: ATC 02:50
DX: E86.0 Dehydration (principal); K52.9 Noninfective gastroenteritis and colitis, unspecified; G89.29 Other chronic pain; R10.9 Unspecified abdominal pain; Z88.0 Allergy status to penicillin; Z88.6 Allergy status to analgesic agent; Z88.5 Allergy status to narcotic agent
CPT/HCPCS: 96360; 96361; J1642; J7120

== ENCOUNTER 2025-05-23 00:10 | Day surgery (SDC) | payer MEDICARE, OTHER ==
[~2025-05-23 00:10] MED LIST changes: +NORT25 PO
[2025-05-23 08:10] VITALS: BP 137/74
[2025-05-24 16:24] LABS: HBV CORE ANTIBODIES,TOTAL Negative (Negative)
[2025-05-24 23:41] LABS: ALPHA-1-ANTITRYPSIN 132 mg/dL (90-200)
[2025-05-25 22:36] LABS: FACTIN SMOOTH MUSCLE,IGG ELISA 7 Units (0-19); MITOCHONDRIAL (M2) AB,IGG 2.1 Units (0.0-24.9)
[2025-05-26 06:03] LABS: ANTINUCLEAR AB (ANA),HEP-2,IGG <1:80 (<1:80)
[2025-05-26 16:01] LABS: HEPATITIS C AB CIA INTERP Negative (Negative); HEPATITIS C ANTIBODY CIA INDEX 0.02 IV
== END 2025-05-23 11:27 | disposition home or self-care (01) ==
LOC: ATC 00:10
PROVIDERS: Student in an Organized Health Care Education/Training Program
DX: E86.0 Dehydration (principal); G89.29 Other chronic pain; R10.9 Unspecified abdominal pain; K52.9 Noninfective gastroenteritis and colitis, unspecified; M25.551 Pain in right hip; D50.8 Other iron deficiency anemias; E03.8 Other specified hypothyroidism; E78.5 Hyperlipidemia, unspecified; G43.819 Other migraine, intractable, without status migrainosus; I10 Essential (primary) hypertension; G47.30 Sleep apnea, unspecified; M19.90 Unspecified osteoarthritis, unspecified site; E55.9 Vitamin D deficiency, unspecified; K21.9 Gastro-esophageal reflux disease without esophagitis; Z79.890 Hormone replacement therapy; Z79.899 Other long term (current) drug therapy; Z88.0 Allergy status to penicillin; Z88.5 Allergy status to narcotic agent; Z88.6 Allergy status to analgesic agent
CPT/HCPCS: 82103; 86015; 86039; 86381; 86704; 86803; 96360; 96361; J1642; J7120

== ENCOUNTER 2025-05-29 04:16 | Day surgery (SDC) | payer MEDICARE, OTHER ==
[2025-05-29 07:55] VITALS: BP 144/69
== END 2025-05-29 11:05 | disposition home or self-care (01) ==
LOC: ATC 04:16
DX: E86.0 Dehydration (principal); G89.29 Other chronic pain; R10.9 Unspecified abdominal pain; K52.9 Noninfective gastroenteritis and colitis, unspecified; M25.551 Pain in right hip; D50.8 Other iron deficiency anemias; E03.8 Other specified hypothyroidism; E78.5 Hyperlipidemia, unspecified; G43.819 Other migraine, intractable, without status migrainosus; I10 Essential (primary) hypertension; G47.30 Sleep apnea, unspecified; M19.90 Unspecified osteoarthritis, unspecified site; E55.9 Vitamin D deficiency, unspecified; K21.9 Gastro-esophageal reflux disease without esophagitis; Z79.890 Hormone replacement therapy; Z79.899 Other long term (current) drug therapy; Z88.0 Allergy status to penicillin; Z88.5 Allergy status to narcotic agent; Z88.6 Allergy status to analgesic agent; Z88.8 Allergy status to other drugs, medicaments and biological substances
CPT/HCPCS: 96360; 96361; J1642; J7120

== ENCOUNTER 2025-06-04 02:12 | Day surgery (SDC) | payer MEDICARE, OTHER ==
[2025-06-04 08:11] VITALS: BP 126/86
== END 2025-06-04 11:14 | disposition home or self-care (01) ==
LOC: ATC 02:12
DX: E86.0 Dehydration (principal); K52.9 Noninfective gastroenteritis and colitis, unspecified; G89.29 Other chronic pain; R10.9 Unspecified abdominal pain; Z88.0 Allergy status to penicillin; Z88.5 Allergy status to narcotic agent; Z88.6 Allergy status to analgesic agent; Z88.8 Allergy status to other drugs, medicaments and biological substances
CPT/HCPCS: 96360; 96361; J1642; J7120

== ENCOUNTER 2025-06-06 00:48 | Day surgery (SDC) | payer MEDICARE, OTHER ==
[2025-06-06 08:05] VITALS: BP 132/69
== END 2025-06-06 11:08 | disposition home or self-care (01) ==
LOC: ATC 00:48
DX: E86.0 Dehydration (principal); K52.9 Noninfective gastroenteritis and colitis, unspecified; G89.29 Other chronic pain; R10.9 Unspecified abdominal pain; Z88.5 Allergy status to narcotic agent; Z88.0 Allergy status to penicillin; Z88.6 Allergy status to analgesic agent; Z88.8 Allergy status to other drugs, medicaments and biological substances
CPT/HCPCS: 96360; 96361; J1642; J7120

== ENCOUNTER 2025-06-11 01:05 | Day surgery (SDC) | payer MEDICARE, OTHER ==
[2025-06-11 07:50] VITALS: BP 152/88
== END 2025-06-11 11:08 | disposition home or self-care (01) ==
LOC: ATC 01:05
DX: E86.0 Dehydration (principal); K21.9 Gastro-esophageal reflux disease without esophagitis; I10 Essential (primary) hypertension; E03.8 Other specified hypothyroidism; Z79.890 Hormone replacement therapy; Z79.899 Other long term (current) drug therapy; Z88.1 Allergy status to other antibiotic agents; Z88.5 Allergy status to narcotic agent; Z88.8 Allergy status to other drugs, medicaments and biological substances
CPT/HCPCS: 96360; 96361; J1642; J7120

== ENCOUNTER 2025-06-16 07:23 | Day surgery (SDC) | payer MEDICARE, OTHER ==
[2025-06-16 07:52] VITALS: BP 152/88
== END 2025-06-16 10:48 | disposition home or self-care (01) ==
LOC: ATC 07:23
DX: E86.0 Dehydration (principal); G89.29 Other chronic pain; R10.9 Unspecified abdominal pain; K52.9 Noninfective gastroenteritis and colitis, unspecified; M25.551 Pain in right hip; D50.8 Other iron deficiency anemias; E03.8 Other specified hypothyroidism; E78.5 Hyperlipidemia, unspecified; G43.819 Other migraine, intractable, without status migrainosus; G47.30 Sleep apnea, unspecified; M19.90 Unspecified osteoarthritis, unspecified site; E55.9 Vitamin D deficiency, unspecified; K21.9 Gastro-esophageal reflux disease without esophagitis; Z79.890 Hormone replacement therapy; Z79.899 Other long term (current) drug therapy; Z88.0 Allergy status to penicillin; Z88.5 Allergy status to narcotic agent; Z88.8 Allergy status to other drugs, medicaments and biological substances
CPT/HCPCS: 96360; 96361; J1642; J7120

== ENCOUNTER 2025-06-18 01:36 | Day surgery (SDC) | payer MEDICARE, OTHER ==
[2025-06-18 07:52] VITALS: BP 139/73
== END 2025-06-18 16:58 | disposition home or self-care (01) ==
LOC: ATC 01:36
DX: E86.0 Dehydration (principal)
CPT/HCPCS: 96360; 96361; J1642; J7120

== ENCOUNTER 2025-06-20 03:11 | Day surgery (SDC) | payer MEDICARE, OTHER ==
[2025-06-20 07:55] VITALS: BP 157/76
== END 2025-06-20 11:00 | disposition home or self-care (01) ==
LOC: ATC 03:11
DX: E86.0 Dehydration (principal); G89.29 Other chronic pain; R10.9 Unspecified abdominal pain; K52.9 Noninfective gastroenteritis and colitis, unspecified; M25.551 Pain in right hip; D50.8 Other iron deficiency anemias; E03.8 Other specified hypothyroidism; E78.5 Hyperlipidemia, unspecified; G43.819 Other migraine, intractable, without status migrainosus; I10 Essential (primary) hypertension; G47.30 Sleep apnea, unspecified; M19.90 Unspecified osteoarthritis, unspecified site; E55.9 Vitamin D deficiency, unspecified; K21.9 Gastro-esophageal reflux disease without esophagitis; Z79.890 Hormone replacement therapy; Z79.899 Other long term (current) drug therapy; Z88.0 Allergy status to penicillin; Z88.5 Allergy status to narcotic agent; Z88.8 Allergy status to other drugs, medicaments and biological substances
CPT/HCPCS: 96360; 96361; J1642; J7120

== ENCOUNTER 2025-06-25 00:40 | Day surgery (SDC) | payer MEDICARE, OTHER ==
[2025-06-25 07:54] VITALS: BP 154/84
== END 2025-06-25 11:19 | disposition home or self-care (01) ==
LOC: ATC 00:40
DX: E86.0 Dehydration (principal); K52.9 Noninfective gastroenteritis and colitis, unspecified; Z88.8 Allergy status to other drugs, medicaments and biological substances; Z88.5 Allergy status to narcotic agent
CPT/HCPCS: 96360; 96361; J1642; J7120

== ENCOUNTER 2025-06-27 00:02 | Day surgery (SDC) | payer MEDICARE, OTHER ==
[2025-06-27 07:48] VITALS: BP 139/75
== END 2025-06-27 10:56 | disposition home or self-care (01) ==
LOC: ATC 00:02
DX: E86.0 Dehydration (principal); G89.29 Other chronic pain; R10.9 Unspecified abdominal pain; K52.9 Noninfective gastroenteritis and colitis, unspecified; M25.551 Pain in right hip; D50.8 Other iron deficiency anemias; E03.8 Other specified hypothyroidism; E78.5 Hyperlipidemia, unspecified; G43.819 Other migraine, intractable, without status migrainosus; I10 Essential (primary) hypertension; G47.30 Sleep apnea, unspecified; M19.90 Unspecified osteoarthritis, unspecified site; E55.9 Vitamin D deficiency, unspecified; K21.9 Gastro-esophageal reflux disease without esophagitis; Z79.890 Hormone replacement therapy; Z79.899 Other long term (current) drug therapy; Z88.0 Allergy status to penicillin; Z88.5 Allergy status to narcotic agent; Z88.8 Allergy status to other drugs, medicaments and biological substances
CPT/HCPCS: 96360; 96361; J1642; J7120

== ENCOUNTER 2025-06-30 01:55 | Day surgery (SDC) | payer MEDICARE, OTHER ==
[2025-06-30 13:55] VITALS: BP 144/81
== END 2025-06-30 17:05 | disposition home or self-care (01) ==
LOC: ATC 01:55
DX: E86.0 Dehydration (principal); I10 Essential (primary) hypertension; K21.9 Gastro-esophageal reflux disease without esophagitis; Z79.899 Other long term (current) drug therapy; Z88.1 Allergy status to other antibiotic agents; Z88.5 Allergy status to narcotic agent; Z88.6 Allergy status to analgesic agent; Z88.8 Allergy status to other drugs, medicaments and biological substances
CPT/HCPCS: 96360; 96361; J1642; J7120

== ENCOUNTER 2025-07-02 01:42 | Day surgery (SDC) | payer MEDICARE, OTHER ==
[2025-07-02 07:59] VITALS: BP 161/88
== END 2025-07-02 11:29 | disposition home or self-care (01) ==
LOC: ATC 01:42
DX: E86.0 Dehydration (principal); K52.9 Noninfective gastroenteritis and colitis, unspecified; G89.29 Other chronic pain; R10.9 Unspecified abdominal pain; Z88.0 Allergy status to penicillin; Z88.5 Allergy status to narcotic agent; Z88.6 Allergy status to analgesic agent; Z88.8 Allergy status to other drugs, medicaments and biological substances
CPT/HCPCS: 96360; 96361; J1642; J7120

== ENCOUNTER 2025-07-04 02:48 | Day surgery (SDC) | payer MEDICARE, OTHER ==
[2025-07-04 07:50] VITALS: BP 149/83
== END 2025-07-04 10:57 | disposition home or self-care (01) ==
LOC: ATC 02:48
DX: E86.0 Dehydration (principal); G89.29 Other chronic pain; R10.9 Unspecified abdominal pain; K52.9 Noninfective gastroenteritis and colitis, unspecified; M25.551 Pain in right hip; D50.8 Other iron deficiency anemias; E03.8 Other specified hypothyroidism; E78.5 Hyperlipidemia, unspecified; G43.819 Other migraine, intractable, without status migrainosus; I10 Essential (primary) hypertension; G47.30 Sleep apnea, unspecified; M19.90 Unspecified osteoarthritis, unspecified site; E55.9 Vitamin D deficiency, unspecified; K21.9 Gastro-esophageal reflux disease without esophagitis; Z79.890 Hormone replacement therapy; Z79.899 Other long term (current) drug therapy; Z88.0 Allergy status to penicillin; Z88.5 Allergy status to narcotic agent; Z88.8 Allergy status to other drugs, medicaments and biological substances
CPT/HCPCS: 96360; 96361; 99211; J1642; J7120

== ENCOUNTER 2025-07-07 01:28 | Day surgery (SDC) | payer MEDICARE, OTHER ==
[2025-07-07 08:02] VITALS: BP 162/85
== END 2025-07-07 11:08 | disposition home or self-care (01) ==
LOC: ATC 01:28
DX: E86.0 Dehydration (principal); K52.9 Noninfective gastroenteritis and colitis, unspecified; G89.29 Other chronic pain; R10.9 Unspecified abdominal pain; Z88.0 Allergy status to penicillin; Z88.5 Allergy status to narcotic agent; Z88.6 Allergy status to analgesic agent; Z88.8 Allergy status to other drugs, medicaments and biological substances
CPT/HCPCS: 96360; 96361; 99211; J1642; J7120

== ENCOUNTER 2025-07-09 01:03 | Day surgery (SDC) | payer MEDICARE, OTHER ==
[2025-07-09 07:53] VITALS: BP 153/73
== END 2025-07-09 11:07 | disposition home or self-care (01) ==
LOC: ATC 01:03
DX: E86.0 Dehydration (principal); K52.9 Noninfective gastroenteritis and colitis, unspecified; G89.29 Other chronic pain; R10.9 Unspecified abdominal pain; Z88.0 Allergy status to penicillin; Z88.6 Allergy status to analgesic agent; Z88.5 Allergy status to narcotic agent; Z88.8 Allergy status to other drugs, medicaments and biological substances
CPT/HCPCS: 96360; 96361; J1642; J7120

== ENCOUNTER 2025-07-11 01:55 | Day surgery (SDC) | payer MEDICARE, OTHER ==
[2025-07-11 08:02] VITALS: BP 130/77
== END 2025-07-11 11:10 | disposition home or self-care (01) ==
LOC: ATC 01:55
DX: E86.0 Dehydration (principal); K52.9 Noninfective gastroenteritis and colitis, unspecified; G89.29 Other chronic pain; R10.9 Unspecified abdominal pain; Z88.0 Allergy status to penicillin; Z88.5 Allergy status to narcotic agent; Z88.6 Allergy status to analgesic agent; Z88.8 Allergy status to other drugs, medicaments and biological substances
CPT/HCPCS: 96360; 96361; J1642; J7120

== ENCOUNTER 2025-07-14 02:28 | Day surgery (SDC) | payer MEDICARE, OTHER ==
[2025-07-14 07:56] VITALS: BP 129/88
== END 2025-07-14 09:52 | disposition home or self-care (01) ==
LOC: ATC 02:28
DX: E86.0 Dehydration (principal); G89.29 Other chronic pain; R10.9 Unspecified abdominal pain; K52.9 Noninfective gastroenteritis and colitis, unspecified; M25.551 Pain in right hip; D50.8 Other iron deficiency anemias; E03.8 Other specified hypothyroidism; E78.5 Hyperlipidemia, unspecified; G43.819 Other migraine, intractable, without status migrainosus; G47.30 Sleep apnea, unspecified; M19.90 Unspecified osteoarthritis, unspecified site; E55.9 Vitamin D deficiency, unspecified; K21.9 Gastro-esophageal reflux disease without esophagitis; Z79.890 Hormone replacement therapy; Z79.899 Other long term (current) drug therapy; Z88.0 Allergy status to penicillin; Z88.5 Allergy status to narcotic agent; Z88.8 Allergy status to other drugs, medicaments and biological substances
CPT/HCPCS: 96360; J1642; J7120

== ENCOUNTER 2025-07-16 00:21 | Day surgery (SDC) | payer MEDICARE, OTHER ==
[2025-07-16 08:03] VITALS: BP 146/92
== END 2025-07-16 11:08 | disposition home or self-care (01) ==
LOC: ATC 00:21
DX: E86.0 Dehydration (principal); K52.9 Noninfective gastroenteritis and colitis, unspecified; G89.29 Other chronic pain; R10.9 Unspecified abdominal pain; Z88.1 Allergy status to other antibiotic agents; Z88.0 Allergy status to penicillin; Z88.5 Allergy status to narcotic agent; Z88.6 Allergy status to analgesic agent; Z88.8 Allergy status to other drugs, medicaments and biological substances
CPT/HCPCS: 96360; 96361; J1642; J7120

== ENCOUNTER 2025-07-18 00:50 | Day surgery (SDC) | payer MEDICARE, OTHER ==
[2025-07-18 07:57] VITALS: BP 122/69
== END 2025-07-18 11:02 | disposition home or self-care (01) ==
LOC: ATC 00:50
DX: E86.0 Dehydration (principal); G89.29 Other chronic pain; R10.9 Unspecified abdominal pain; K52.9 Noninfective gastroenteritis and colitis, unspecified; M25.551 Pain in right hip; D50.8 Other iron deficiency anemias; E03.8 Other specified hypothyroidism; E78.5 Hyperlipidemia, unspecified; G43.819 Other migraine, intractable, without status migrainosus; G47.30 Sleep apnea, unspecified; I10 Essential (primary) hypertension; M19.90 Unspecified osteoarthritis, unspecified site; E55.9 Vitamin D deficiency, unspecified; K21.9 Gastro-esophageal reflux disease without esophagitis; Z79.890 Hormone replacement therapy; Z79.899 Other long term (current) drug therapy; Z88.0 Allergy status to penicillin; Z88.5 Allergy status to narcotic agent; Z88.8 Allergy status to other drugs, medicaments and biological substances
CPT/HCPCS: 96360; 96361; 99211; J1642; J7120

== ENCOUNTER 2025-07-23 01:45 | Day surgery (SDC) | payer MEDICARE, OTHER ==
[2025-07-23 07:53] VITALS: BP 150/98
== END 2025-07-23 11:02 | disposition home or self-care (01) ==
LOC: ATC 01:45
DX: E86.0 Dehydration (principal); I10 Essential (primary) hypertension; G43.909 Migraine, unspecified, not intractable, without status migrainosus
CPT/HCPCS: 96360; 96361; J1642; J7120

== ENCOUNTER 2025-07-25 00:39 | Day surgery (SDC) | payer MEDICARE, OTHER ==
[2025-07-25 07:52] VITALS: BP 162/82
== END 2025-07-25 10:56 | disposition home or self-care (01) ==
LOC: ATC 00:39
DX: E86.0 Dehydration (principal); I10 Essential (primary) hypertension; G43.909 Migraine, unspecified, not intractable, without status migrainosus
CPT/HCPCS: 96360; 96361; J1642; J7120

== ENCOUNTER 2025-07-28 02:09 | Day surgery (SDC) | payer MEDICARE, OTHER ==
[2025-07-28 07:54] VITALS: BP 141/93
== END 2025-07-28 11:05 | disposition home or self-care (01) ==
LOC: ATC 02:09
DX: E86.0 Dehydration (principal); I10 Essential (primary) hypertension; G43.909 Migraine, unspecified, not intractable, without status migrainosus
CPT/HCPCS: 96360; 96361; J1642; J7120

== ENCOUNTER 2025-07-30 01:20 | Day surgery (SDC) | payer MEDICARE, OTHER ==
[2025-07-30 07:53] VITALS: BP 153/85
== END 2025-07-30 11:00 | disposition home or self-care (01) ==
LOC: ATC 01:20
DX: E86.0 Dehydration (principal); I10 Essential (primary) hypertension; G43.909 Migraine, unspecified, not intractable, without status migrainosus
CPT/HCPCS: J1642; J7120

== ENCOUNTER 2025-08-04 04:03 | Day surgery (SDC) | payer MEDICARE, OTHER ==
[2025-08-04 08:19] VITALS: BP 126/74
== END 2025-08-04 11:15 | disposition home or self-care (01) ==
LOC: ATC 04:03
DX: E86.0 Dehydration (principal); I10 Essential (primary) hypertension; G43.909 Migraine, unspecified, not intractable, without status migrainosus
CPT/HCPCS: 96360; 96361; J1642; J7120

== ENCOUNTER 2025-08-06 02:35 | Day surgery (SDC) | payer MEDICARE, OTHER ==
[2025-08-06 08:01] VITALS: BP 151/76
== END 2025-08-06 11:05 | disposition home or self-care (01) ==
LOC: ATC 02:35
DX: E86.0 Dehydration (principal)
CPT/HCPCS: 96360; 96361; J1642; J7120

== ENCOUNTER 2025-08-08 02:15 | Day surgery (SDC) | payer MEDICARE, OTHER ==
[2025-08-08 08:08] VITALS: BP 154/68
== END 2025-08-08 11:10 | disposition home or self-care (01) ==
LOC: ATC 02:15
DX: E86.0 Dehydration (principal); I10 Essential (primary) hypertension; G43.909 Migraine, unspecified, not intractable, without status migrainosus
CPT/HCPCS: 96360; 96361; J1642; J7120

== ENCOUNTER 2025-08-13 02:40 | Day surgery (SDC) | payer MEDICARE, OTHER ==
[2025-08-13 07:55] VITALS: BP 138/81
== END 2025-08-13 10:58 | disposition home or self-care (01) ==
LOC: ATC 02:40
DX: E86.0 Dehydration (principal); I10 Essential (primary) hypertension; G43.909 Migraine, unspecified, not intractable, without status migrainosus
CPT/HCPCS: 96360; 96361; J1642; J7120

== ENCOUNTER 2025-08-15 03:29 | Day surgery (SDC) | payer MEDICARE, OTHER ==
[2025-08-15 08:00] VITALS: BP 164/77
== END 2025-08-15 11:06 | disposition home or self-care (01) ==
LOC: ATC 03:29
DX: E86.0 Dehydration (principal); I10 Essential (primary) hypertension; G43.909 Migraine, unspecified, not intractable, without status migrainosus
CPT/HCPCS: 96360; 96361; J1642; J7120

== ENCOUNTER 2025-08-18 04:11 | Day surgery (SDC) | payer MEDICARE, OTHER ==
[2025-08-18 07:49] VITALS: BP 142/70
== END 2025-08-18 11:02 | disposition home or self-care (01) ==
LOC: ATC 04:11
DX: E86.0 Dehydration (principal); Z45.2 Encounter for adjustment and management of vascular access device; I10 Essential (primary) hypertension; G43.909 Migraine, unspecified, not intractable, without status migrainosus; Z79.82 Long term (current) use of aspirin; Z79.890 Hormone replacement therapy; Z79.899 Other long term (current) drug therapy
CPT/HCPCS: 96360; 96361; 99211; J1642; J7120

== ENCOUNTER 2025-08-20 00:04 | Day surgery (SDC) | payer MEDICARE, OTHER ==
[2025-08-20 08:07] VITALS: BP 136/61
== END 2025-08-20 11:11 | disposition home or self-care (01) ==
LOC: ATC 00:04
DX: E86.0 Dehydration (principal); I10 Essential (primary) hypertension; G43.909 Migraine, unspecified, not intractable, without status migrainosus
CPT/HCPCS: 96360; 96361; J1642; J7120

== ENCOUNTER 2025-08-27 07:54 | Day surgery (SDC) | payer MEDICARE, OTHER ==
[2025-08-27 07:50] VITALS: BP 134/80
== END 2025-08-27 11:00 | disposition home or self-care (01) ==
LOC: ATC 07:54
DX: E86.0 Dehydration (principal); I10 Essential (primary) hypertension; G43.909 Migraine, unspecified, not intractable, without status migrainosus
CPT/HCPCS: 96360; 96361; J1642; J7120

== ENCOUNTER 2025-09-01 00:15 | Day surgery (SDC) | payer MEDICARE, OTHER ==
[2025-09-01 07:50] VITALS: BP 151/74
== END 2025-09-01 11:05 | disposition home or self-care (01) ==
LOC: ATC 00:15
DX: E86.0 Dehydration (principal); Z45.2 Encounter for adjustment and management of vascular access device; G43.909 Migraine, unspecified, not intractable, without status migrainosus; I10 Essential (primary) hypertension; Z79.890 Hormone replacement therapy; Z79.899 Other long term (current) drug therapy
CPT/HCPCS: 96360; 96361; J1642; J7120

== ENCOUNTER 2025-09-03 07:54 | Day surgery (SDC) | payer MEDICARE, OTHER ==
[2025-09-03 08:02] VITALS: BP 139/65
== END 2025-09-03 11:03 | disposition home or self-care (01) ==
LOC: ATC 07:54
DX: E86.0 Dehydration (principal); I10 Essential (primary) hypertension; G43.909 Migraine, unspecified, not intractable, without status migrainosus
CPT/HCPCS: 96360; 96361; J1642; J7120